=== PATIENT | female | born 1990 | race Two or more races ===

== ENCOUNTER 2016-07-29 09:16 | Emergency (ER) | payer OTHER ==
[2016-07-29] MEDS ORDERED: PROMETHAZINE HCL 25 MG TABLET PO ONE (10:53)
[2016-07-29] MEDS ORDERED: BUTALB/ACETAMINOPHEN/CAFFEINE 1 TAB EACH PO ONE (10:54)
--- NOTE | 2016-07-29 10:55 | ER Document Report ---
HPI - HPI Patient complains to provider of: sinus congestion Onset: Yesterday Onset/Duration: Gradual Quality of pain: Pressure Pain Level: 5 Context: Patient presents complaining of sinus congestion, headache, nausea and sore throat. Patient reports subjective fever at home. Patient does report some light sensitivity. Patient reports generalized body aches. Patient denies any vomiting. Associated Symptoms: Body/muscle aches, Nonproductive cough, Fever - Subjective , Headache, Rhinnorhea, Sinus pain/drainage, Sore throat. denies: Chest pain, Earache, Vomiting Exacerbated by: Denies Relieved by: Denies Similar symptoms previously: Yes Recently seen / treated by doctor: No - ROS ROS below otherwise negative: Yes Systems Reviewed and Negative: Yes All other systems reviewed and negative - CONSTITUTIONAL Constitutional: REPORTS: Fever - Subjective, Chills - EENT EENT: REPORTS: Sore Throat, Nasal Drainage-Clear, Congestion - NEURO Neurology: REPORTS: Headache - CARDIOVASCULAR Cardiovascular: DENIES: Chest pain - RESPIRATORY Respiratory: REPORTS: Coughing. DENIES: Trouble Breathing - GASTROINTESTINAL Gastrointestinal: REPORTS: Nausea - Yesterday. 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 Mother with gallbladder disease, diabetes, hypertension, asthma, obstructive sleep apnea, cardiac hypertrophy. Patient has suicidal ideation: No Patient has homicidal ideation: No Neurological Medical History: Reports: Hx Migraine. Denies: Hx Seizures Renal/ Medical History: Denies: Hx Peritoneal Dialysis Malignancy Medical History: Psychiatric Medical History: Reports: Hx Anxiety, Hx Depression, Hx Schizophrenia - no meds Traumatic Medical History: Past Surgical History: Reports: Hx Section - x3, Hx Cholecystectomy, Hx Oral Surgery - wisdom teeth, Hx Tubal Ligation. Denies: Hx Hysterectomy - Immunizations Hx Diphtheria, Pertussis, Tetanus Vaccination: Yes Hx Pneumococcal Vaccination: 05/16/10 <YOLANDA CLEMENTREECE - Last Filed: 07/29/16 12:51> Vertical Provider Document - CONSTITUTIONAL Agree With Documented VS: Yes Exam Limitations: No Limitations General Appearance: WD/WN, No Apparent Distress Notes: PHYSICAL EXAMINATION: GENERAL: Well-appearing and in no acute distress. HEAD: Atraumatic, normocephalic. EYES: sclera anicteric, conjunctiva are normal. Extraocular movements intact, PERRL ENT: Clear rhinorrhea, swollen nasal mucosa. Moist mucous membranes. NECK: Normal range of motion, supple without lymphadenopathy LUNGS: CTAB and equal. No wheezes rales or rhonchi. HEART: Regular rate and rhythm without murmurs ABDOMEN: Soft, nontender, normal bowel sounds, no guarding. EXTREMITIES: Normal range of motion, no pitting edema. No cyanosis. BACK: No CVA tenderness NEUROLOGICAL: Cranial nerves grossly intact. Normal speech. PSYCH: Normal mood, normal affect. SKIN: Warm, Dry, normal turgor, patient with scattered erythematous macular papular lesions scattered in linear patterns to extremities - INFECTION CONTROL TRAVEL OUTSIDE OF THE [place] IN LAST 30 DAYS: No - RESPIRATORY O2 Sat by Pulse Oximetry: 98 <ASHLEY CLEMENT - Last Filed: 07/29/16 12:51> Course - Re-evaluation Re-evalutation: 07/29/16 12:12 Patient continues with sinus congestion and sinus pressure pain. Patient states that nausea has improved although headache pain has not completely resolved. Discussed plan of care with patient, patient verbalized understanding and agrees with plan. Discussed worsening signs or symptoms that patient should return immediately for. 07/29/16 Patient advised that her skin lesions to look consistent with possible bedbug bites and that she should treat her skin rash with topical [id number] steroid cream and Benadryl. - Vital Signs Vital signs: Temp Pulse Resp BP Pulse Ox 99.0 F 92 14 117/81 98 07/29/16 09:20 07/29/16 09:20 07/29/16 09:20 07/29/16 09:20 07/29/16 09:20 - Laboratory Laboratory results interpreted by me: 07/29/16 12:12 Labs- Entire Visit 07/29/16 07/29/16 11:19 11:19 Influenza A (Rapid) NEGATIVE Influenza B (Rapid) NEGATIVE Group A Strep Rapid NEGATIVE 07/29/16 12:54 <ASHLEY CLEMENT - Last Filed: 07/29/16 12:51> - Vital Signs Vital signs: Temp Pulse Resp BP Pulse Ox 98.5 F 72 16 121/68 99 07/29/16 12:55 07/29/16 12:55 07/29/16 12:55 07/29/16 12:55 07/29/16 12:55 <JANIA COLON - Last Filed: 08/13/16 05:47> Discharge <ASHLEY CLEMENT - Last Filed: 07/29/16 12:51> <JANIA COLON - Last Filed: 08/13/16 05:47> - Discharge Clinical Impression: Sinus headache, Nasal congestion, Sore throat Condition: Stable Disposition: HOME, SELF-CARE Instructions: Headache ([facility]), Antinausea Medication ([facility]), Upper Respiratory Illness ([facility]), Sore Throat ([facility]) Additional Instructions: Return immediately for any new or worsening symptoms Followup with your primary care provider, call tomorrow to make a followup appointment You may use saline nasal spray [id number] to help with sinus congestion Prescriptions: Guaifenesin/Pseudoephedrne HCl [Mucinex D ER Tablet] 1 each PO BID PRN #12 tab.er.12h PRN Reason: Naproxen [Naprosyn 250 Nmg Tablet] 1 tab PO BID #14 tablet Promethazine HCl [Phenergan 25 mg Tablet] 25 mg PO Q6H PRN #12 tablet PRN Reason: Forms: Return to Work Referrals: [facility] [Provider Group] - Follow up tomorrow
[2016-07-29 12:57] VITALS: BP 121/68
== END 2016-07-29 12:57 | disposition home or self-care (01) ==
LOC: ER 09:16
DX: J02.9 Acute pharyngitis, unspecified (principal); R09.81 Nasal congestion; R51 Headache; R21 Rash and other nonspecific skin eruption; Z90.49 Acquired absence of other specified parts of digestive tract; Z98.51 Tubal ligation status
CPT/HCPCS: 99283; 87070; 87880; 87804; J3490

== ENCOUNTER 2017-01-02 16:08 | Emergency (ER) | payer OTHER ==
[2017-01-02] MEDS ORDERED: DIPH/PERTUSS(ACELL)/TETANUS VAC/PF 0.5 ML SYR (>=10YO) IM ONE (17:09)
[2017-01-02] MEDS ORDERED: AMOXICILLIN TR/POT CLAVULANATE 500-125 MG TAB PO ONE (17:09)
[2017-01-02] MEDS ORDERED: IBUPROFEN 800 MG TABLET PO ONE (17:09)
--- NOTE | 2017-01-02 17:38 | ER Document Report ---
ED Animal Bite - General Chief Complaint: Cat bite L hand Stated Complaint: POSSIBLE CAT BITE Time Seen by Provider: 01/02/17 16:56 Mode of Arrival: Ambulatory Information source: Patient TRAVEL OUTSIDE OF THE [place] IN LAST 30 DAYS: No - Related Data Allergies/Adverse Reactions: No Known Allergies Allergy (Verified 01/02/17 17:20) Past Medical History - General Information source: Patient - Social History Smoking Status: Former Smoker Cigarette use (# per day): No Chew tobacco use (# tins/day): No Smoking Education Provided: No Frequency of alcohol use: Occasional Drug Abuse: None Occupation: no Lives with: Family Family History: Arthritis, CVA, DM, Hypertension, Malignancy, Thyroid Disfunction, Other - Grandmother with PE, diabetes, hypertension. Mother with gallbladder disease, diabetes, hypertension, asthma, obstructive sleep apnea, cardiac hypertrophy. Patient has suicidal ideation: No Patient has homicidal ideation: No - Past Medical History Cardiac Medical History: Reports: None Pulmonary Medical History: Reports: None EENT Medical History: Reports: None Neurological Medical History: Reports: Hx Migraine Endocrine Medical History: Reports: None Renal/ Medical History: Reports: None Malignancy Medical History: Reports: None GI Medical History: Reports: None Musculoskeltal Medical History: Reports None Skin Medical History: Reports None Psychiatric Medical History: Reports: Hx Anxiety, Hx Bipolar Disorder, Hx Depression, Hx Obsessive Compulsive Disorder, Hx Post Traumatic Stress Disorder , Hx Schizophrenia - no meds Traumatic Medical History: Reports: None Infectious Medical History: Reports: None Past Surgical History: Reports: Hx Section - x3, Hx Cholecystectomy, Hx Oral Surgery - wisdom teeth, Hx Tubal Ligation. Denies: Hx Hysterectomy - Immunizations Immunizations up to date: Yes Hx Diphtheria, Pertussis, Tetanus Vaccination: Yes - 01/02/17 Hx Pneumococcal Vaccination: 05/16/10 Review of Systems - Review of Systems Constitutional: No symptoms reported EENT: No symptoms reported Cardiovascular: No symptoms reported Respiratory: No symptoms reported Gastrointestinal: No symptoms reported Genitourinary: No symptoms reported Female Genitourinary: No symptoms reported Musculoskeletal: No symptoms reported Skin: Other - cat bites left hand Hematologic/Lymphatic: No symptoms reported Neurological/Psychological: No symptoms reported Physical Exam - Vital signs Vitals: Temp Pulse Resp BP Pulse Ox 99.3 F 83 16 119/78 98 01/02/17 16:37 01/02/17 16:37 01/02/17 16:37 01/02/17 16:37 01/02/17 16:37 Interpretation: Normal - General General appearance: Appears well, Alert - HEENT Head: Normocephalic, Atraumatic Eyes: Normal Pupils: PERRL - Respiratory Respiratory status: No respiratory distress Chest status: Nontender Breath sounds: Normal Chest palpation: Normal - Cardiovascular Rhythm: Regular Heart sounds: Normal auscultation Murmur: No - Abdominal Inspection: Normal Distension: No distension Bowel sounds: Normal Tenderness: Nontender Organomegaly: No organomegaly - Back Back: Normal, Nontender - Extremities General upper extremity: Normal inspection, Nontender, Normal color, Normal ROM , Normal temperature General lower extremity: Normal inspection, Nontender, Normal color, Normal ROM , Normal temperature, Normal weight bearing. No: Guero's sign - Neurological Neuro grossly intact: Yes Cognition: Normal Orientation: AAOx4 [place] Coma Scale Eye Opening: Spontaneous [place] Coma Scale Verbal: Oriented [place] Coma Scale Motor: Obeys Commands [place] Coma Scale Total: 15 Speech: Normal Motor strength normal: LUE, RUE, LLE, RLE Sensory: Normal - Psychological Associated symptoms: Normal affect, Normal mood - Skin Skin Temperature: Warm Skin Moisture: Dry Skin Color: Normal Location of irregularity: Extremities - left hand puncture delvalle Character of irregularity: negative: Erythematous Irregularity with: Swelling, Tenderness. negative: Inflammation Course - Re-evaluation Re-evalutation: 01/02/17 17:49 Patient treated with augmentin, tdap, and ibuprofen. Patient given instruction for epsom salt soaks, augmentin, ibuprofen and follow up with orthopedics. - Vital Signs Vital signs: Temp Pulse Resp BP Pulse Ox 99.3 F 83 16 119/78 98 01/02/17 16:37 01/02/17 16:37 01/02/17 16:37 01/02/17 16:37 01/02/17 16:37 Discharge - Discharge Clinical Impression: Cat bite of left hand Qualifiers: Encounter type: initial encounter Qualified Code(s): S61.452A - Open bite of left hand, initial encounter; W55.01XA - Bitten by cat, initial encounter Condition: Stable Disposition: HOME, SELF-CARE Instructions: Family Physicians / Practices Additional Instructions: Animal Bites Animal bites are often heavily contaminated with bacteria. In spite of thorough cleansing and proper treatment, these wounds frequently become infected. Bite wounds of the hands are especially prone to complications. Bites are dressed, if possible. Large wounds may require suturing after internal cleansing. Because of infection risk, some large wounds must remain unstitched. Your doctor is trained to advise you on the best treatment for your bite. Call the doctor at once if the wound becomes red, swollen, warm, increasingly painful, or if it begins to drain. Danger signs also include red streaks up the involved extremity, swollen glands in the groin or under the arm , or fever and chills. The risk of rabies from domestic animals is very low. Bats, sick animals, and wild animals may expose you to rabies. The physician, or the health department, will inform you if you will need to receive the rabies vaccine. Epsom Salt Soaks Soak the wound area in a container of warm epsom salt water. If you can't get the wound area into a bucket or hansen, use a folded towel soaked in the epsom salt solution and apply to the area. Use clean hot tap water (about the temperature of a very warm bath), mixing in about one (1) teaspoon for every pint of water. Two gallon --> 16 teaspoons Epsom Salts One gallon --> 8 teaspoons Epsom Salts Two quarts --> 4 teaspoons Epsom Salts One quart --> 2 teaspoons Epsom Salts Soak the wound for about 20 minutes while gently moving it around in the water. Repeat this four (4) times a day. Augmentin Augmentin is a mixture of amoxicillin and clavulanate. Amoxicillin is a member of the penicillin family. It covers the germs likely to cause ear, bronchial, and urinary infections better than plain penicillin. The addition of clavulanate allows it to cover staph infections of the skin, as well as resistant cases of ear and sinus infections. Your physician has chosen Augmentin for you because of the special nature of your situation. Augmentin is best taken with meals. Nausea after taking the medication is rare, but can occur. Diarrhea can occur, particularly in small children. Vaginal yeast infections, and oral thrush in infants are also common. Contact your physician if these problems occur. Allergy to penicillins is common. If you have had an allergic reaction to any drug of the penicillin family, you should never take any other penicillin. Notify your doctor at once if you develop hives, shortness of breath, swelling, or faintness. Ibuprofen Ibuprofen is an excellent, safe drug for pain control. In addition, it has potent antiinflammatory effects which are beneficial, especially in the treatment of injuries, arthritis, or tendonitis. It's best to take ibuprofen with food. Persons with ulcer disease or allergy to aspirin should notify their physician of this before taking ibuprofen. Take the medication exactly as prescribed. Don't take additional doses unless instructed to do so by your doctor. If you develop wheezing, shortness of breath, hives, faintness, stomach pain, vomiting, or dark black stools, return for re-evaluation at once. Elevate the Injury Because of the nature of your injury, elevation will be helpful to reduce swelling. This also reduces infection risk in wounds. Keep the injury up above the level of your heart for at least the next 48 hours (or longer if the physician recommends it). FOLLOW-UP CARE: If you have been referred to a physician for follow-up care, call the physician s office for an appointment as you were instructed or within the next two days. If you experience worsening or a significant change in your symptoms, notify the physician immediately or return to the Emergency Department at any time for re-evaluation. Prescriptions: Ibuprofen 800 mg PO Q6HP PRN #20 tablet PRN Reason: Amox Tr/Potassium Clavulanate [Augmentin 875-125 Tablet] 1 tab PO BID 10 Days tablet Referrals: ELDON CORTEZ MD [ACTIVE STAFF] - Follow up as needed
[2017-01-02 17:46] VITALS: BP 120/63
== END 2017-01-02 17:46 | disposition home or self-care (01) ==
LOC: ER 16:08
DX: S61.452A Open bite of left hand, initial encounter (principal); W55.01XA Bitten by cat, initial encounter
CPT/HCPCS: 90471; 90715; 99283

== ENCOUNTER 2017-05-24 11:59 | Emergency (ER) | payer SELFPAY ==
--- NOTE | 2017-05-24 12:44 | ER Document Report ---
ED GI/ - General Chief Complaint: Abdominal Problem Stated Complaint: BACK PAIN, NAUSEA Time Seen by Provider: 05/24/17 12:16 Mode of Arrival: Ambulatory Information source: Patient, [facility] Records Notes: This 26-year-old female patient complains of urine that appears cloudy with strong odor for the past few days. Some discomfort in her lower abdomen. She had her tubes tied just over 3 years ago. Last menstrual period was March. She is normally quite regular. She thinks she can feel her fundus. She reports prior pregnancies with negative urine tests. She has had 3 C-sections in the past. TRAVEL OUTSIDE OF THE [place] IN LAST 30 DAYS: No - Related Data Allergies/Adverse Reactions: No Known Allergies Allergy (Verified 05/24/17 12:09) Past Medical History - General Information source: Patient, [facility] Records - Social History Smoking Status: Never Smoker Cigarette use (# per day): No Chew tobacco use (# tins/day): No Smoking Education Provided: No Frequency of alcohol use: None Drug Abuse: None Lives with: Family Family History: Arthritis, CVA, DM, Hypertension, Malignancy, Thyroid Disfunction, Other - Grandmother with PE, diabetes, hypertension. Mother with gallbladder disease, diabetes, hypertension, asthma, obstructive sleep apnea, cardiac hypertrophy. Patient has suicidal ideation: No Patient has homicidal ideation: No Neurological Medical History: Reports: Hx Migraine Renal/ Medical History: Malignancy Medical History: Psychiatric Medical History: Reports: Hx Anxiety, Hx Bipolar Disorder, Hx Depression, Hx Obsessive Compulsive Disorder, Hx Post Traumatic Stress Disorder , Hx Schizophrenia - no meds Traumatic Medical History: Past Surgical History: Reports: Hx Section - x3, Hx Cholecystectomy, Hx Oral Surgery - wisdom teeth, Hx Tubal Ligation - Immunizations Immunizations up to date: Yes Hx Diphtheria, Pertussis, Tetanus Vaccination: Yes - 01/02/17 Hx Pneumococcal Vaccination: 05/16/10 Review of Systems - Review of Systems Constitutional: No symptoms reported EENT: No symptoms reported Cardiovascular: No symptoms reported Gastrointestinal: No symptoms reported Genitourinary: See HPI. denies: Burning, Dysuria Female Genitourinary: See HPI, Last menstrual period - 04/02/2017 Musculoskeletal: No symptoms reported Skin: No symptoms reported Hematologic/Lymphatic: No symptoms reported Neurological/Psychological: No symptoms reported Physical Exam - Vital signs Vitals: Temp Pulse Resp BP Pulse Ox 98.8 F 98 16 120/82 98 05/24/17 12:06 05/24/17 12:06 05/24/17 12:06 05/24/17 12:06 05/24/17 12:06 - General General appearance: Appears well In distress: None - HEENT Head: Normocephalic, Atraumatic Eyes: Normal Pupils: PERRL - Respiratory Respiratory status: No respiratory distress - Cardiovascular Rhythm: Regular - Abdominal Inspection: Obese Tenderness: Tender - Suprapubic and lower abdomen. No: Guarding, Rebound - Back Back: Normal - Extremities General upper extremity: Normal inspection General lower extremity: Normal inspection - Neurological Neuro grossly intact: Yes - Psychological Associated symptoms: Normal affect, Normal mood - Skin Skin Temperature: Warm Skin Moisture: Dry Skin Color: Normal Course - Re-evaluation Re-evalutation: 05/24/17 13:17 Serum hCG is negative. Urinalysis suggests urinary tract infection and not drinking nearly enough fluids. - Vital Signs Vital signs: Temp Pulse Resp BP Pulse Ox 98.8 F 98 16 120/82 98 05/24/17 12:06 05/24/17 12:06 05/24/17 12:06 05/24/17 12:06 05/24/17 12:06 - Laboratory Laboratory results interpreted by me: 05/24/17 12:21 Ur Leukocyte Esterase TRACE H Urine Ascorbic Acid 40 H Discharge - Discharge Clinical Impression: Urinary tract infection Qualifiers: Urinary tract infection type: acute cystitis Hematuria presence: without hematuria Qualified Code(s): N30.00 - Acute cystitis without hematuria Condition: Stable Disposition: HOME, SELF-CARE Additional Instructions: Urinary Tract Infection: Your evaluation indicates that you have a urinary tract infection. This is due to germs growing in the bladder. This is a common problem. This infection usually responds quickly to antibiotics. Your antibiotic should be taken exactly as prescribed. Drink plenty of fluids -- three to four quarts a day. Occasionally, a bladder anesthetic will be prescribed to help stop the feeling of urgency until the antibiotic has a chance to clear the infection. This may cause your urine to be dark orange. Certain urine infections require a culture. If the doctor obtained a culture, the results will be back in two days. You should call to see if a change in treatment is needed. A repeat urinalysis after you finish treatment is often recommended. The physician will let you know if further testing is required. Call the doctor if you develop fever, chills, flank pain, inability to urinate, or blood in the urine. //////////////////////////////////////////////////////////////////////////////// //////////////////////////////////////////////////////////////////////////////// ///////////////// Your urinalysis suggests urinary tract infection. Your serum test was negative. Your urine was quite concentrated. Should drink lots of fluids, especially water throughout the day in the evening. If you get up at night to urinate you should drink a lot of water again. Take the antibiotics as prescribed. Continue drinking cranberry juice. Follow-up with a local medical provider if not improving. RETURN TO THE EMERGENCY ROOM IF ANY NEW OR WORSENING SYMPTOMS. Prescriptions: Cephalexin Monohydrate [Keflex 500 mg Capsule] 500 mg PO TID #15 capsule
[2017-05-24 13:09] LABS: APPEARANCE,URINE SLIGHTLY-CLOUDY; BILIRUBIN,URINE NEGATIVE (NEGATIVE); COLOR,URINE YELLOW; GLUCOSE, URINE NEGATIVE (NEGATIVE); KETONES,URINE NEGATIVE (NEGATIVE); LEUKOCYTE ESTERASE,URINE TRACE (NEGATIVE); NITRITE,URINE NEGATIVE (NEGATIVE); PROTEIN,URINE NEGATIVE (NEGATIVE); URINE SPECIFIC GRAVITY 1.032; UROBILINOGEN,URINE NEGATIVE mg/dL (<2.0)
[2017-05-24] MEDS ORDERED: CEPHALEXIN 500 MG CAPSULE PO ONE (13:25)
[2017-05-24 13:38] VITALS: BP 119/79
== END 2017-05-24 13:38 | disposition home or self-care (01) ==
LOC: ER 11:59
DX: N30.00 Acute cystitis without hematuria (principal); M54.9 Dorsalgia, unspecified; R11.0 Nausea; R10.30 Lower abdominal pain, unspecified
CPT/HCPCS: 36415; 81001; 84703; 87086; 87088; 87186; 99283

== ENCOUNTER 2017-05-28 12:02 | Emergency (ER) | payer SELFPAY ==
--- NOTE | 2017-05-28 12:27 | ER Document Report ---
ED Medical Screen (RME) - General Chief Complaint: Pelvic Pain Stated Complaint: NAUSEA PELVIC PAIN Time Seen by Provider: 05/28/17 12:25 Mode of Arrival: Ambulatory Information source: Patient TRAVEL OUTSIDE OF THE [place] IN LAST 30 DAYS: No - HPI Patient complains to provider of: pelvic "heaviness", nausea, lightheaded Onset: Yesterday - pt seen here earlier this week with similar symptoms. Is concerned that she may be . Also was told she had a uti. - Related Data Allergies/Adverse Reactions: No Known Allergies Allergy (Verified 05/24/17 12:09) Past Medical History Neurological Medical History: Reports: Hx Migraine. Denies: Hx Seizures Renal/ Medical History: Denies: Hx Peritoneal Dialysis Malignancy Medical History: Psychiatric Medical History: Reports: Hx Anxiety, Hx Bipolar Disorder, Hx Depression, Hx Obsessive Compulsive Disorder, Hx Post Traumatic Stress Disorder , Hx Schizophrenia - no meds Traumatic Medical History: Past Surgical History: Reports: Hx Section - x3, Hx Cholecystectomy, Hx Oral Surgery - wisdom teeth, Hx Tubal Ligation. Denies: Hx Hysterectomy - Immunizations Immunizations up to date: Yes Hx Diphtheria, Pertussis, Tetanus Vaccination: Yes - 01/02/17 Physical Exam - Vital signs Vitals: Temp Pulse Resp BP Pulse Ox 98.1 F 74 18 117/74 99 05/28/17 12:17 05/28/17 12:17 05/28/17 12:17 05/28/17 12:17 05/28/17 12:17 Course - Vital Signs Vital signs: Temp Pulse Resp BP Pulse Ox 98.1 F 74 18 117/74 99 05/28/17 12:17 05/28/17 12:17 05/28/17 12:17 05/28/17 12:17 05/28/17 12:17
[2017-05-28 13:29] LABS: ABSOLUTE EOSINOPHILS # (AUTO) 0.1 10^3/uL (0.0-0.6); ABSOLUTE LYMPHOCYTES (AUTO) 2.4 10^3/uL (0.5-4.7); ABSOLUTE MONOCYTES (AUTO) 0.6 10^3/uL (0.1-1.4); ABSOLUTE NEUT (AUTO) 3.7 10^3/uL (1.7-8.2); BASOPHILS % (AUTO) 0.4 % (0-2); HEMATOCRIT 38.3 % (36.0-47.0); HEMOGLOBIN 12.7 g/dL (12.0-15.5); LYMPHOCYTES % (AUTO) 35.7 % (13-45); MEAN CORPUSCULAR HEMOGLOBIN 26.9 pg (27.0-33.4); MEAN CORPUSCULAR HGB CONC 33.1 g/dL (32.0-36.0); MEAN CORPUSCULAR VOLUME 81 fl (80-97); MONOCYTES % (AUTO) 8.3 % (3-13); PLATELET COUNT 248 10^3/uL (150-450); RED BLOOD COUNT 4.71 10^6/uL (3.72-5.28); RED CELL DISTRIBUTION WIDTH 14.2 % (11.5-14.0); SEGMENTED NEUTROPHILS % (AUTO) 54.6 % (42-78); TOTAL CELLS COUNTED % (AUTO) 100 %; WHITE BLOOD COUNT 6.8 10^3/uL (4.0-10.5)
[2017-05-28 13:51] LABS: ALANINE AMINOTRANSFERASE 32 U/L (9-52); ALBUMIN 4.1 g/dL (3.5-5.0); ALKALINE PHOSPHATASE 62 U/L (38-126); ANION GAP 8 (5-19); ASPARTATE AMINO TRANSFERASE 20 U/L (14-36); BILIRUBIN,DIRECT 0.1 mg/dL (0.0-0.4); BILIRUBIN,TOTAL 0.1 mg/dL (0.2-1.3); BLOOD UREA NITROGEN 16 mg/dL (7-20); CALCIUM 9.5 mg/dL (8.4-10.2); CARBON DIOXIDE 31 mmol/L (22-30); CHLORIDE 103 mmol/L (98-107); GLUCOSE 89 mg/dL (75-110); POTASSIUM 4.3 mmol/L (3.6-5.0); TOTAL PROTEIN 7.5 g/dL (6.3-8.2)
--- NOTE | 2017-05-28 17:12 | RADIOLOGY REPORT (SQ) ---
EXAM DESCRIPTION: U/S NON OB PEL TV W/DOPPLER COMPLETED DATE/TIME: 05/28/2017 5:00 pm REASON FOR STUDY: pelvic pain COMPARISON: None. TECHNIQUE: Dynamic and static grayscale images acquired of the pelvis via transvaginal approach and recorded on PACS. Additional selected color Doppler and spectral images recorded. LIMITATIONS: None. FINDINGS: UTERUS: Contour normal. No mass. ENDOMETRIAL STRIPE: No focal or generalized thickening. No masses. CERVIX: No nabothian cysts. RIGHT OVARY: No abnormal masses. RIGHT OVARY DOPPLER: Normal arterial vascular flow without evidence for torsion. LEFT OVARY: No abnormal masses. LEFT OVARY DOPPLER: Normal arterial vascular flow without evidence for torsion. FREE FLUID: None noted. OTHER: No other significant finding. MEASUREMENTS: UTERUS: 4.0 x 4.2 x 10.3 cm. ENDOMETRIAL STRIPE: 10 mm. RIGHT OVARY: 1.5 x 1.7 x 2.3 cm. LEFT OVARY: 1.6 x 2.2 x 2.8 cm. IMPRESSION: NORMAL TRANSVAGINAL PELVIC ULTRASOUND. TECHNICAL DOCUMENTATION: JOB ID: [id number] [email or web address] All Rights Reserved
--- NOTE | 2017-05-28 17:18 | ER Document Report ---
ED General - General Chief Complaint: Pelvic Pain Stated Complaint: NAUSEA PELVIC PAIN Time Seen by Provider: 05/28/17 12:25 Mode of Arrival: Ambulatory Information source: Patient TRAVEL OUTSIDE OF THE [place] IN LAST 30 DAYS: No - HPI Patient complains to provider of: pelvic heaviness Onset: Other - few weeks Onset/Duration: Gradual, Constant Quality of pain: Fullness Severity: Moderate Associated symptoms: Other Exacerbated by: Denies Relieved by: Denies Similar symptoms previously: Yes - with Recently seen / treated by doctor: No - Related Data Allergies/Adverse Reactions: No Known Allergies Allergy (Verified 05/24/17 12:09) Home Medications: Current Home Medications No Home Medications 05/28/17 [History] Past Medical History - General Information source: Patient - Social History Smoking Status: Never Smoker Chew tobacco use (# tins/day): No Frequency of alcohol use: None Drug Abuse: None Lives with: Family Family History: Arthritis, CVA, DM, Hypertension, Malignancy, Thyroid Disfunction, Other - Grandmother with PE, diabetes, hypertension. Mother with gallbladder disease, diabetes, hypertension, asthma, obstructive sleep apnea, cardiac hypertrophy. PGM breast cancer. Mom with "possible ovarian cancer" Patient has suicidal ideation: No Patient has homicidal ideation: No - Past Medical History Cardiac Medical History: Reports: None Pulmonary Medical History: Reports: None EENT Medical History: Reports: None Neurological Medical History: Reports: Hx Migraine. Denies: Hx Seizures Endocrine Medical History: Reports: None Renal/ Medical History: Reports: None. Denies: Hx Peritoneal Dialysis Malignancy Medical History: Reports: None GI Medical History: Reports: None Musculoskeltal Medical History: Reports None Skin Medical History: Reports None Psychiatric Medical History: Reports: Hx Anxiety, Hx Bipolar Disorder, Hx Depression, Hx Obsessive Compulsive Disorder, Hx Post Traumatic Stress Disorder , Hx Schizophrenia - no meds Traumatic Medical History: Past Surgical History: Reports: Hx Section - x3, Hx Cholecystectomy, Hx Oral Surgery - wisdom teeth, Hx Tubal Ligation. Denies: Hx Hysterectomy - Immunizations Immunizations up to date: Yes Hx Diphtheria, Pertussis, Tetanus Vaccination: Yes - 01/02/17 Hx Pneumococcal Vaccination: 05/16/10 Review of Systems - Review of Systems Constitutional: No symptoms reported EENT: No symptoms reported Cardiovascular: No symptoms reported Respiratory: No symptoms reported Gastrointestinal: Other - increased appetite Female Genitourinary: Last menstrual period - apr 02. denies: , Heavy /abnormal periods, Irregular period, Vaginal discharge, Vaginal bleeding, Vaginal odor, Painful intercourse Musculoskeletal: No symptoms reported Skin: No symptoms reported Hematologic/Lymphatic: No symptoms reported Neurological/Psychological: No symptoms reported Physical Exam - Vital signs Vitals: Temp Pulse Resp BP Pulse Ox 98.1 F 74 18 117/74 99 05/28/17 12:17 05/28/17 12:17 05/28/17 12:17 05/28/17 12:17 05/28/17 12:17 - Notes Notes: PHYSICAL EXAMINATION: GENERAL: Well-appearing, well-nourished and in no acute distress. HEAD: Atraumatic, normocephalic. EYES: Pupils equal round and reactive to light, extraocular movements intact, conjunctiva are normal. ENT: Nares patent, oropharynx clear without exudates. Moist mucous membranes. NECK: Normal range of motion, supple without lymphadenopathy LUNGS: Breath sounds clear to auscultation bilaterally and equal. No wheezes rales or rhonchi. HEART: Regular rate and rhythm without murmurs ABDOMEN: Soft, nontender, nondistended abdomen. No guarding, no rebound. No masses appreciated. Female : deferred (did not want pelvic exam) Musculoskeletal: Normal range of motion, no pitting or edema. No cyanosis. NEUROLOGICAL: Cranial nerves grossly intact. Normal speech, normal gait. Normal sensory, motor exams PSYCH: Normal mood, normal affect. SKIN: Warm, Dry, normal turgor, no rashes or lesions noted. My Course - Vital Signs Vital signs: Temp Pulse Resp BP Pulse Ox 98.1 F 74 18 117/74 99 05/28/17 12:17 05/28/17 12:17 05/28/17 12:17 05/28/17 12:17 05/28/17 12:17 - Laboratory Result Diagrams: 05/28/17 12:59 05/28/17 12:59 Laboratory results interpreted by me: 05/28/17 05/28/17 12:59 12:59 MCH 26.9 L RDW 14.2 H Carbon Dioxide 31 H Total Bilirubin 0.1 L 05/28/17 17:22 Serum hCG negative 05/28/17 17:23 - Diagnostic Test Radiology reviewed: Reports reviewed Radiology results interpreted by me: 05/28/17 17:22 Ultrasound of pelvis showed no acute findings Discharge - Discharge Clinical Impression: Pelvic pain Disposition: HOME, SELF-CARE Instructions: [facility], Pelvic Pain ([facility]) Additional Instructions: Return to ED if worsening of symptoms or other concerns. His establish a OB doctor as you need a annual Pap smear as we discussed.
[2017-05-28 18:07] VITALS: BP 119/67
[2017-05-28 18:09] LABS: AMORPHOUS SEDIMENT,URINE 1+ /HPF; APPEARANCE,URINE TURBID; BILIRUBIN,URINE NEGATIVE (NEGATIVE); COLOR,URINE YELLOW; GLUCOSE, URINE NEGATIVE (NEGATIVE); KETONES,URINE NEGATIVE (NEGATIVE); LEUKOCYTE ESTERASE,URINE NEGATIVE (NEGATIVE); NITRITE,URINE NEGATIVE (NEGATIVE); PROTEIN,URINE NEGATIVE (NEGATIVE); URINE SPECIFIC GRAVITY 1.031; UROBILINOGEN,URINE NEGATIVE mg/dL (<2.0)
== END 2017-05-28 18:08 | disposition home or self-care (01) ==
LOC: ER 12:02
DX: R10.2 Pelvic and perineal pain (principal); Z98.51 Tubal ligation status; Z90.49 Acquired absence of other specified parts of digestive tract
CPT/HCPCS: 36415; 76830; 80053; 81001; 84703; 85025; 93976; 99284

== ENCOUNTER 2017-09-15 10:15 | Emergency (ER) | payer SELFPAY ==
[2017-09-15 10:35] VITALS: BP 126/67
--- NOTE | 2017-09-15 10:54 | ER Document Report ---
HPI - HPI Pain Level: 3 Notes: Patient is a 26-year-old female who presents to the ED complaining of left face pain near her ear and left upper jaw laterally 2 days. Patient states that the pain does not usually radiate, but will radiate down into her lower jaw at times as well. She has not had any new piercings or insect bite/cut to the left side of her head. Patient is not sure if she feels lymph nodes being swollen in that area. She is eating and drinking without difficulties. She is urinating normally and having normal bowel movements. She has taken some over- the-counter meds with minimal relief. Denies any drug allergies. No other concerns or complaints. Denies any headache, fever, neck pain, ear discharge, URI, sore throat, chest pain, palpitations, syncope, cough, shortness of breath , wheeze, dyspnea, abdominal pain, nausea/vomiting/diarrhea, urinary retention, dysuria, hematuria, or rash. - ROS Systems Reviewed and Negative: Yes All other systems reviewed and negative - REPRODUCTIVE Reproductive: DENIES: : Past Medical History - Social History Smoking Status: Unknown if Ever Smoked Family History: Arthritis, CVA, DM, Hypertension, Malignancy, Thyroid Disfunction, Other - Grandmother with PE, diabetes, hypertension. Mother with gallbladder disease, diabetes, hypertension, asthma, obstructive sleep apnea, cardiac hypertrophy. PGM breast cancer. Mom with "possible ovarian cancer" Neurological Medical History: Reports: Hx Migraine. Denies: Hx Seizures Renal/ Medical History: Denies: Hx Peritoneal Dialysis Malignancy Medical History: Psychiatric Medical History: Reports: Hx Anxiety, Hx Bipolar Disorder, Hx Depression, Hx Obsessive Compulsive Disorder, Hx Post Traumatic Stress Disorder , Hx Schizophrenia - no meds Traumatic Medical History: Past Surgical History: Reports: Hx Section - x3, Hx Cholecystectomy, Hx Oral Surgery - wisdom teeth, Hx Tubal Ligation. Denies: Hx Hysterectomy - Immunizations Immunizations up to date: Yes Hx Diphtheria, Pertussis, Tetanus Vaccination: Yes - 01/02/17 Hx Pneumococcal Vaccination: 05/16/10 Vertical Provider Document - CONSTITUTIONAL Agree With Documented VS: Yes Notes: PHYSICAL EXAMINATION: GENERAL: Well-appearing, well-nourished and in no acute distress. HEAD: Atraumatic, normocephalic. EYES: Pupils equal round and reactive to light, extraocular movements intact, sclera anicteric, conjunctiva are normal. ENT: EAC clear b/l. TM's intact b/l without erythema, fluid, or perforation. Nares patent and without discharge. oropharynx clear without exudates. No tonsilar hypertrophy or erythema. Moist mucous membranes. No sinus tenderness. Uvula midline. No palatine shift. No tongue protrusion. No respiratory compromise. Mouth: Poor dentition. + severe decay and mild gingivitis. No obvious abscess or discharge noted. No facial swelling. + tenderness to tooth #17. NECK: Normal range of motion, supple without lymphadenopathy. No rigidity/ meningismus. Kernig/brudzinski negative. LUNGS: Breath sounds clear to auscultation bilaterally and equal. No wheezes rales or rhonchi. HEART: Regular rate and rhythm without murmurs, rubs, gallops. NEUROLOGICAL: Cranial nerves grossly intact. Normal speech, normal gait. Normal sensory, motor exams PSYCH: Normal mood, normal affect. SKIN: Warm, Dry, normal turgor, no rashes or lesions noted. - INFECTION CONTROL TRAVEL OUTSIDE OF THE [place] IN LAST 30 DAYS: No Course - Re-evaluation Re-evalutation: 09/15/17 10:57 Patient is an afebrile, well-hydrated, 26-year-old female who presents to the ED with dental pain to #17. Vitals are acceptable. PE is otherwise unremarkable. There is no abscess that needs incision and drainage at this time. I will be sending her home with a prescription for penicillin. Low suspicion for any meningitis, sepsis, peritonsillar/pharyngeal abscess, respiratory compromise, Volodymyr's, temporal arteritis, or other emergent systemic condition at this time. Patient is aware this condition can change from initial presentation and she needs to monitor symptoms closely. Conservative measures otherwise for symptoms. Call to schedule an appointment with a dentist for further evaluation and management. Recheck with your PCM this week as well. Return to the ED with any worsening/concerning symptoms otherwise as reviewed in discharge. Patient is in agreement. - Vital Signs Vital signs: Temp Pulse Resp BP Pulse Ox 98.7 F 63 16 126/67 H 98 09/15/17 10:34 09/15/17 10:34 09/15/17 10:34 09/15/17 10:34 09/15/17 10:34 Discharge - Discharge Clinical Impression: Pain, dental Condition: Stable Disposition: HOME, SELF-CARE Instructions: Penicillin V K ([facility]) Additional Instructions: [place] and floss twice daily Maintain fluid intake Take antibiotics as directed Mouthwash, salt water gargles, peroxide rinse as needed Tylenol/ibuprofen as needed Recheck with PCM this week Call today/tomorrow and schedule an appointment with your dentist for further evaluation Return to the ED with any worsening symptoms and/or development of fever, headache, facial swelling, swelling of lips/tongue/throat, trouble swallowing, drooling, hoarseness, neck pain/stiffness, chest pain, palpitations, syncope, shortness of breath, trouble breathing, abdominal pain, n/v/d, numbness/tingling , or other worsening symptoms that are concerning to you. Prescriptions: Penicillin V Potassium [Penicillin Vk 250 mg Tablet] 500 mg PO BID #40 tablet Forms: Elevated Blood Pressure [facility]errals[facility] [Provider Group] - Follow up in 1 week
== END 2017-09-15 10:55 | disposition home or self-care (01) ==
LOC: ER 10:15
DX: K08.9 Disorder of teeth and supporting structures, unspecified (principal); R51 Headache; Z90.49 Acquired absence of other specified parts of digestive tract; Z98.51 Tubal ligation status
CPT/HCPCS: 99282

== ENCOUNTER 2018-01-03 11:25 | Emergency (ER) | payer SELFPAY ==
[2018-01-03] MEDS ORDERED: ONDANSETRON 4 MG TAB.RAPDIS PO ONE (12:14)
[2018-01-03] MEDS ORDERED: DICYCLOMINE HCL INJ 20 MG/2 ML AMPULE IM ONE (12:14)
[2018-01-03 12:35] LABS: ABSOLUTE BASOPHILS # (AUTO) 0.1 10^3/uL (0.0-0.2); ABSOLUTE EOSINOPHILS # (AUTO) 0.1 10^3/uL (0.0-0.6); ABSOLUTE LYMPHOCYTES (AUTO) 2.9 10^3/uL (0.5-4.7); ABSOLUTE MONOCYTES (AUTO) 0.4 10^3/uL (0.1-1.4); ABSOLUTE NEUT (AUTO) 6.5 10^3/uL (1.7-8.2); BASOPHILS % (AUTO) 0.5 % (0-2); EOSINOPHILS % (AUTO) 0.7 % (0-6); HEMATOCRIT 38.2 % (36.0-47.0); HEMOGLOBIN 12.6 g/dL (12.0-15.5); MEAN CORPUSCULAR HEMOGLOBIN 27.2 pg (27.0-33.4); MEAN CORPUSCULAR HGB CONC 32.9 g/dL (32.0-36.0); MEAN CORPUSCULAR VOLUME 83 fl (80-97); MONOCYTES % (AUTO) 4.4 % (3-13); PLATELET COUNT 279 10^3/uL (150-450); RED BLOOD COUNT 4.62 10^6/uL (3.72-5.28); RED CELL DISTRIBUTION WIDTH 14.3 % (11.5-14.0); SEGMENTED NEUTROPHILS % (AUTO) 65.4 % (42-78); TOTAL CELLS COUNTED % (AUTO) 100 %; WHITE BLOOD COUNT 9.9 10^3/uL (4.0-10.5)
[2018-01-03 12:46] LABS: APPEARANCE,URINE SLIGHTLY-CLOUDY; BILIRUBIN,URINE NEGATIVE (NEGATIVE); COLOR,URINE YELLOW; GLUCOSE, URINE NEGATIVE (NEGATIVE); KETONES,URINE NEGATIVE (NEGATIVE); LEUKOCYTE ESTERASE,URINE NEGATIVE (NEGATIVE); NITRITE,URINE NEGATIVE (NEGATIVE); PROTEIN,URINE NEGATIVE (NEGATIVE); URINE SPECIFIC GRAVITY 1.031; UROBILINOGEN,URINE NEGATIVE mg/dL (<2.0)
[2018-01-03 12:58] LABS: ALANINE AMINOTRANSFERASE 28 U/L (9-52); ALKALINE PHOSPHATASE 67 U/L (38-126); ANION GAP 15 (5-19); ASPARTATE AMINO TRANSFERASE 21 U/L (14-36); BILIRUBIN,DIRECT 0.2 mg/dL (0.0-0.4); BILIRUBIN,TOTAL 0.3 mg/dL (0.2-1.3); BLOOD UREA NITROGEN 14 mg/dL (7-20); CALCIUM 9.7 mg/dL (8.4-10.2); CARBON DIOXIDE 25 mmol/L (22-30); CHLORIDE 103 mmol/L (98-107); GLUCOSE 112 mg/dL (75-110); LIPASE 41.7 U/L (23-300); POTASSIUM 3.8 mmol/L (3.6-5.0); SODIUM 142.7 mmol/L (137-145); TOTAL PROTEIN 7.6 g/dL (6.3-8.2)
--- NOTE | 2018-01-03 13:56 | ER Document Report ---
ED General - General Chief Complaint: Abdominal Pain Stated Complaint: ABDOMINAL PAIN Time Seen by Provider: 01/03/18 12:10 TRAVEL OUTSIDE OF THE [place] IN LAST 30 DAYS: No - HPI Patient complains to provider of: Abdominal pain Notes: Patient admitted for evaluation of abdominal pain states crampy and associated with nausea vomiting and diarrhea. Patient is intermittent for the last 2 weeks. Denies any sick contacts denies anyFevers or chills. Patient resting currently upon my evaluation - Related Data Allergies/Adverse Reactions: No Known Allergies Allergy (Verified 05/24/17 12:09) Past Medical History - Social History Smoking Status: Current Some Day Smoker Chew tobacco use (# tins/day): No Frequency of alcohol use: Social Drug Abuse: None Family History: Arthritis, CVA, DM, Hypertension, Malignancy, Thyroid Disfunction, Other - Grandmother with PE, diabetes, hypertension. Mother with gallbladder disease, diabetes, hypertension, asthma, obstructive sleep apnea, cardiac hypertrophy. PGM breast cancer. Mom with "possible ovarian cancer" Patient has suicidal ideation: No Patient has homicidal ideation: No Neurological Medical History: Reports: Hx Migraine. Denies: Hx Seizures Renal/ Medical History: Denies: Hx Peritoneal Dialysis Malignancy Medical History: Psychiatric Medical History: Reports: Hx Anxiety, Hx Bipolar Disorder, Hx Depression, Hx Obsessive Compulsive Disorder, Hx Post Traumatic Stress Disorder , Hx Schizophrenia - no meds Traumatic Medical History: Past Surgical History: Reports: Hx Section - x3, Hx Cholecystectomy, Hx Oral Surgery - wisdom teeth, Hx Tubal Ligation. Denies: Hx Hysterectomy - Immunizations Immunizations up to date: Yes Hx Diphtheria, Pertussis, Tetanus Vaccination: Yes - 01/02/17 Hx Pneumococcal Vaccination: 05/16/10 Review of Systems - Review of Systems Constitutional: No symptoms reported EENT: No symptoms reported Cardiovascular: No symptoms reported Respiratory: No symptoms reported Gastrointestinal: Abdominal pain, Diarrhea, Nausea, Vomiting Genitourinary: No symptoms reported Female Genitourinary: No symptoms reported Musculoskeletal: No symptoms reported Skin: No symptoms reported Hematologic/Lymphatic: No symptoms reported Neurological/Psychological: No symptoms reported -: Yes All other systems reviewed and negative Physical Exam - Vital signs Vitals: Temp Pulse Resp BP Pulse Ox 99.0 F 76 20 124/78 99 01/03/18 11:29 01/03/18 11:29 01/03/18 11:29 01/03/18 11:29 01/03/18 11:29 Interpretation: Normal - General General appearance: Appears well, Alert - HEENT Head: Normocephalic, Atraumatic Eyes: Normal Pupils: PERRL - Respiratory Respiratory status: No respiratory distress Chest status: Nontender Breath sounds: Normal Chest palpation: Normal - Cardiovascular Rhythm: Regular Heart sounds: Normal auscultation Murmur: No - Abdominal Inspection: Normal Distension: No distension Bowel sounds: Normal Tenderness: Nontender Organomegaly: No organomegaly - Back Back: Normal, Nontender - Extremities General upper extremity: Normal inspection, Nontender, Normal color, Normal ROM , Normal temperature General lower extremity: Normal inspection, Nontender, Normal color, Normal ROM , Normal temperature, Normal weight bearing. No: Guero's sign - Neurological Neuro grossly intact: Yes Cognition: Normal Orientation: AAOx4 [place] Coma Scale Eye Opening: Spontaneous [place] Coma Scale Verbal: Oriented [place] Coma Scale Motor: Obeys Commands [place] Coma Scale Total: 15 Speech: Normal Motor strength normal: LUE, RUE, LLE, RLE Sensory: Normal - Psychological Associated symptoms: Normal affect, Normal mood - Skin Skin Temperature: Warm Skin Moisture: Dry Skin Color: Normal Course - Re-evaluation Re-evalutation: 01/03/18 20:58 The patient presents with nausea vomiting diarrhea without signs of peritonitis or other life-threatening or serious etiology. The patient appears stable for discharge and has been instructed to return immediately if the symptoms worsen in any way, or in 8-12hr if not improved for re-evaluation. The patient has been instructed to return if the symptoms worsen or change in any way. - Vital Signs Vital signs: Temp Pulse Resp BP Pulse Ox 98.0 F 72 20 117/81 96 01/03/18 14:03 01/03/18 14:03 01/03/18 14:03 01/03/18 14:03 01/03/18 14:03 - Laboratory Result Diagrams: 01/03/18 12:19 01/03/18 12:19 Laboratory results interpreted by me: 01/03/18 01/03/18 01/03/18 12:19 12:19 12:19 RDW 14.3 H Glucose 112 H Urine Blood SMALL H Discharge - Discharge Clinical Impression: Abdominal pain Qualifiers: Abdominal location: unspecified location Qualified Code(s): R10.9 - Unspecified abdominal pain Condition: Good Disposition: HOME, SELF-CARE Instructions: Abdominal Pain ([facility]), Antispasmodics ([facility]), Clear Liquid Diet ( [facility]), Gastroenteritis (adult) ([facility]) Additional Instructions: Your laboratory studies do not show any signs of significant infection or any acute pathology. I recommend she follow-up with her primary care physician in next 2-3 days. Would recommend clear liquid diet for the next 1224 hrs. and advance as tolerated. Prescriptions: Ondansetron [Zofran Odt 4 mg Tablet] 4 mg PO Q4HP PRN #30 tab.rapdis PRN Reason: Ibuprofen [Motrin 600 mg Tablet] 600 mg PO Q8HP PRN #21 tablet PRN Reason: Dicyclomine HCl [Bentyl 20 mg Tablet] 20 mg PO QID #30 tablet
[2018-01-03 14:05] VITALS: BP 117/81
== END 2018-01-03 14:05 | disposition home or self-care (01) ==
LOC: ER 11:25
DX: R10.9 Unspecified abdominal pain (principal); R11.2 Nausea with vomiting, unspecified; R19.7 Diarrhea, unspecified; F17.200 Nicotine dependence, unspecified, uncomplicated
CPT/HCPCS: 99284; 36415; 83690; 85025; 80053; 81001; J0500; S0119

== ENCOUNTER 2018-02-16 23:07 | Emergency (ER) | payer SELFPAY ==
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
--- NOTE | 2018-02-17 01:28 | RADIOLOGY REPORT (SQ) ---
PROCEDURE: CHEST X-RAY TWO VIEWS CLINICAL HISTORY: chest pain INDICATION: Same as above COMPARISON: None TECHNIQUE: The study was done on 02/17/2018 at 1:11 AM PA and and lateral chest radiographs were obtained. FINDINGS: There is presence of bilateral nipple rings There are no discrete airspace infiltrates, pneumothoraces or pleural effusions. The pulmonary vascularity is normal The cardiomediastinal silhouette is unremarkable for patient's age and sex. IMPRESSION: There is no acute pleural-parenchymal process seen in the imaged lung doss. Place of interpretation: [facility].
[2018-02-17] MEDS ORDERED: ALBUTEROL SULFATE HFA (90 MCG/PUFF) 200 PUFF/8.5 GM MDI IH ONE (01:50)
[2018-02-17] MEDS ORDERED: DEXAMETHASONE 4 MG TABLET PO ONE (01:50)
[2018-02-17] MEDS ORDERED: BENZONATATE 100 MG CAPSULE PO ONE (01:50)
--- NOTE | 2018-02-17 01:51 | ER Document Report ---
ED General - General Chief Complaint: Breathing Difficulty Stated Complaint: COUGH Time Seen by Provider: 02/17/18 00:08 Notes: Patient is a 27-year-old female with a past medical history of schizoaffective disorder, occasional tobacco user, who presents with 2 days of cough, congestion and shortness of breath. The patient states that her symptoms started gradually and have been getting progressively worse. Nothing improves or worsens her symptoms. She denies a recent history of similar symptoms. No known sick contacts. She has not seen her general doctor regarding today's concerns. She denies fever, vomiting, abdominal pain, headache, or altered mental status. TRAVEL OUTSIDE OF THE [place] IN LAST 30 DAYS: No - Related Data Allergies/Adverse Reactions: No Known Allergies Allergy (Verified 05/24/17 12:09) Past Medical History - General Information source: Patient - Social History Smoking Status: Current Some Day Smoker Frequency of alcohol use: None Drug Abuse: None Lives with: Family Family History: Arthritis, CVA, DM, Hypertension, Malignancy, Thyroid Disfunction, Other - Grandmother with PE, diabetes, hypertension. Mother with gallbladder disease, diabetes, hypertension, asthma, obstructive sleep apnea, cardiac hypertrophy. PGM breast cancer. Mom with "possible ovarian cancer" Neurological Medical History: Reports: Hx Migraine. Denies: Hx Seizures Renal/ Medical History: Denies: Hx Peritoneal Dialysis Malignancy Medical History: Psychiatric Medical History: Reports: Hx Anxiety, Hx Bipolar Disorder, Hx Depression, Hx Obsessive Compulsive Disorder, Hx Post Traumatic Stress Disorder , Hx Schizophrenia - no meds Traumatic Medical History: Past Surgical History: Reports: Hx Section - x3, Hx Cholecystectomy, Hx Oral Surgery - wisdom teeth, Hx Tubal Ligation. Denies: Hx Hysterectomy - Immunizations Immunizations up to date: Yes Hx Diphtheria, Pertussis, Tetanus Vaccination: Yes - 01/02/17 Hx Pneumococcal Vaccination: 05/16/10 Review of Systems - Review of Systems Notes: Constitutional: Negative for fever. HENT: Negative for sore throat. Eyes: Negative for visual changes. Cardiovascular: Negative for chest pain. Respiratory: Positive for cough Gastrointestinal: Negative for abdominal pain, vomiting or diarrhea. Genitourinary: Negative for dysuria. Musculoskeletal: Negative for back pain. Skin: Negative for rash. Neurological: Negative for headaches, weakness or numbness. 10 point ROS negative except as marked above and in HPI. Physical Exam - Vital signs Vitals: Temp Pulse Resp BP Pulse Ox 99.1 F 102 H 22 H 122/67 96 02/16/18 23:15 02/16/18 23:15 02/16/18 23:15 02/16/18 23:15 02/16/18 23:15 Interpretation: Normal - Tachycardia resolved at time of my assessment Notes: PHYSICAL EXAMINATION: GENERAL: Well-appearing, well-nourished and in no acute distress. HEAD: Atraumatic, normocephalic. EYES: Pupils equal round and reactive to light, extraocular movements intact, sclera anicteric, conjunctiva are normal. ENT: nares patent, oropharynx clear without exudates. Moist mucous membranes. NECK: Normal range of motion, supple without lymphadenopathy LUNGS: Breath sounds clear to auscultation bilaterally and equal. No wheezes rales or rhonchi. HEART: Regular rate and rhythm without murmurs ABDOMEN: Soft, nontender, normoactive bowel sounds. No guarding, no rebound. No masses appreciated. EXTREMITIES: Normal range of motion, no pitting or edema. No cyanosis. NEUROLOGICAL: No focal neurological deficits. Moves all extremities spontaneously and on command. PSYCH: Normal mood, normal affect. SKIN: Warm, Dry, normal turgor, no rashes or lesions noted. Course - Re-evaluation Re-evalutation: 02/17/18 01:49 Patient presents with a clinical history and exam most consistent with an acute viral bronchitis. Patient is overall well in appearance without tachypnea, hypoxemia, tachycardia, or difficulty with ambulation. Breath sounds are clear bilaterally. No fever. Patient does have additional signs of upper respiratory infection including nasal congestion, sore throat, and sinus pressure. Chest x-ray clear will treat with bronchodilators, single dose of dexamethasone, and Tessalon Perles. At this time will discharge with return precautions and follow-up recommendations. Verbal discharge instructions given a the bedside and opportunity for questions given. Medication warnings reviewed. Patient is in agreement with this plan and has verbalized understanding of return precautions and the need for primary care follow-up in the next 24-72 hours. - Vital Signs Vital signs: Temp Pulse Resp BP Pulse Ox 97.4 F 83 20 112/69 98 02/17/18 02:11 02/17/18 02:11 02/17/18 02:11 02/17/18 02:11 02/17/18 02:11 - Diagnostic Test Radiology reviewed: Image reviewed, Reports reviewed Radiology results interpreted by me: 02/17/18 01:49 Chest x-ray: No acute infiltrate or pneumothorax Discharge - Discharge Clinical Impression: Bronchitis, Persistent cough Condition: Good Disposition: HOME, SELF-CARE Additional Instructions: You were seen for symptoms most consistent with bronchitis. This can take up to 12 weeks to fully resolve. This is generally due to a viral infection. Please follow-up with your primary doctor in the next 2-3 days. Return if you develop worsening cough, vomiting, fever >100.4, pass out, begin coughing blood, or have any other symptoms that are concerning to you. Please use the medications prescribed today as directed. Prescriptions: Benzonatate [Tessalon Perles 100 mg Capsule] 100 mg PO Q8HP PRN #40 capsule PRN Reason:
[2018-02-17 02:13] VITALS: BP 112/69
--- NOTE | 2018-02-17 10:13 | EKG REPORT ---
SEVERITY:- NORMAL ECG - SINUS RHYTHM : Confirmed by: Lauren Oneal 17-Feb-2018 10:12:03
== END 2018-02-17 02:45 | disposition home or self-care (01) ==
LOC: ER 23:07
DX: J40 Bronchitis, not specified as acute or chronic (principal); R06.00 Dyspnea, unspecified; F17.200 Nicotine dependence, unspecified, uncomplicated; Z90.49 Acquired absence of other specified parts of digestive tract; Z98.51 Tubal ligation status
CPT/HCPCS: 93005; 99284; 71046; 93010; L4350; J3490

== ENCOUNTER 2018-09-18 12:16 | Emergency (ER) | payer OTHER ==
[2018-09-18] MEDS ORDERED: LIDOCAINE 5% (700 MG) TRANSDERMAL ADH..PATCH TP ONE (14:12)
[2018-09-18] MEDS ORDERED: METHOCARBAMOL 750 MG TABLET PO ONE (14:13)
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
[2018-09-18 14:36] VITALS: BP 124/76
== END 2018-09-18 14:36 | disposition home or self-care (01) ==
LOC: ER 12:16
DX: M54.6 Pain in thoracic spine (principal); M54.2 Cervicalgia; M25.572 Pain in left ankle and joints of left foot; V49.40XA Driver injured in collision with unspecified motor vehicles in traffic accident, initial encounter; R09.81 Nasal congestion; F12.10 Cannabis abuse, uncomplicated
CPT/HCPCS: 99283; J3490

== ENCOUNTER 2018-12-08 20:04 | Emergency (ER) | payer SELFPAY ==
[2018-12-08] MEDS ORDERED: ASPIRIN 81 MG TABLET, CHEWABLE PO ONE (20:27)
--- NOTE | 2018-12-08 20:29 | ER Document Report ---
Addendum entered and electronically signed by KISHA PHIPPS MD 12/09/18 11:05: Discharge - Discharge Clinical Impression: Cocaine use, Marijuana use, Suicidal ideation, PTSD (post-traumatic stress disorder) Condition: Good Disposition: HOME, SELF-CARE Additional Instructions: You have been evaluated both medical and behavioral health teams and been deemed appropriate for discharge. You are highly encouraged to abstain from illegal substances. You have been provided a local resource list of area providers including mobile crisis contact information. Please follow-up with outpatient mental health services in 3 to 5 days with your chosen provider. Post-Traumatic Stress Disorder You seem to have post-traumatic stress disorder (PTSD). PTSD can cause chronic anxiety, sleeping problems, social withdrawal, and drug abuse. It can occur following a traumatic personal experience such as an accident, rape, assault, or of a loved one, or after experiencing a war or natural disaster. Symptoms may be delayed for days or even years. Emotional numbing, the inability to express grief, is usually the earliest sign. There may be apathy or agitation, aggression, and inability to perform ordinary tasks. Often there are frightening nightmares and sudden, intruding memories of the trauma. Panic attacks and feelings of guilt are common. Alcohol and drug use make post- traumatic stress symptoms worse. Medication may be temporarily necessary to combat anxiety, panic attacks, and depression. Medicine should not be considered a "cure." You must deal with the trauma and prepare to go on. Group therapy is often helpful. This helps you "talk through" the problem with others who share your symptoms. We can provide you with an appropriate referral. COCAINE ABUSE: Cocaine causes many dangerous medical problems. Problems can occur even with "usual" amounts. Cocaine affects judgement, creating a sense of invulnerability. Cocaine users often make bad decisions that seem "great" at the time. Most cocaine users eventually will be hurt by bad job performance, damaged personal relations, crime, and unsafe sexual practices. Toxic effects of cocaine can include seizures, hallucinations, delusions, high blood pressure, heart damage, or sudden . There's always the risk of a "bad batch." But heart attacks, brain hemorrhages, or cardiac arrest can occur unpredictably even with "normal" use. Injection of cocaine is risky for abscesses, endocarditis (heart infection), pneumonia, and AIDS. Withdrawal from cocaine often causes anxiety and drug cravings. Some users become paranoid and psychotic. Many treatment programs are available, but you must make the decision to quit. Medication can be prescribed to control the symptoms of cocaine toxicity (beta blockers or benzodiazepines). Withdrawal symptoms may require tranquilizers. DEPRESSION: Your evaluation reveals that you have mental depression. While symptoms may be vague, they often include disturbance of sleep, fatigue, loss of appetite, and general loss of interest in life. While depression may be a side effect of drugs, or a reaction to a major change in your life, many cases have no known cause. If depression is acute, and related to a major loss in your life, you can expect it to clear completely with time. If you have been depressed a long time, are prone to repeated bouts of depression or low mood, or have been thinking of suicide, get help. Depression can be treated with anti-depressant medication and counselling. Long-term depression will often take a few weeks to clear, even with appropriate medication. Follow-up care is important. SUICIDAL IDEATION: Suicidal ideation is a common medical term for thoughts about suicide, which may be as detailed as a formulated plan, without the suicidal act itself. Although most people who undergo suicidal ideation do not commit suicide, some go on to make suicide attempts. The range of suicidal ideation varies greatly from fleeting to detailed planning, role playing, and unsuccessful attempts. While thoughts about suicide are common, most people do not carry out serious actions to commit suicide. Based upon your evaluation and discussion with you, we do not believe you are currently at risk to act upon your thoughts of suicide. You have agreed to return to the Emergency Department, at any time, if you feel inclined to act upon your suicidal thoughts. FOLLOW-UP CARE: If you have been referred to a physician for follow-up care, call the physicians office for an appointment as you were instructed or within the next two days. If you experience worsening or a significant change in your symptoms, notify the physician immediately or return to the Emergency Department at any time for re-evaluation. Referrals: [facility] [Outside] - Follow up in 3-5 days [facility] [Outside] - Follow up as needed Addendum entered and electronically signed by NERY PEREZ LCSWA 12/09/18 10:48: Discharge - Discharge Clinical Impression: Cocaine use, Marijuana use, Suicidal ideation, PTSD (post-traumatic stress disorder) Condition: Good Disposition: HOME, SELF-CARE Additional Instructions: You have been evaluated both medical and behavioral health teams and been deemed appropriate for discharge. You are highly encouraged to abstain from illegal substances. You have been provided a local resource list of area providers including mobile crisis contact information. Please follow-up with outpatient mental health services in 3 to 5 days with your chosen provider. Post-Traumatic Stress Disorder You seem to have post-traumatic stress disorder (PTSD). PTSD can cause chronic anxiety, sleeping problems, social withdrawal, and drug abuse. It can occur following a traumatic personal experience such as an accident, rape, assault, or of a loved one, or after experiencing a war or natural disaster. Symptoms may be delayed for days or even years. Emotional numbing, the inability to express grief, is usually the earliest sign. There may be apathy or agitation, aggression, and inability to perform ordinary tasks. Often there are frightening nightmares and sudden, intruding memories of the trauma. Panic attacks and feelings of guilt are common. Alcohol and drug use make post- traumatic stress symptoms worse. Medication may be temporarily necessary to combat anxiety, panic attacks, and depression. Medicine should not be considered a "cure." You must deal with the trauma and prepare to go on. Group therapy is often helpful. This helps you "talk through" the problem with others who share your symptoms. We can provide you with an appropriate referral. COCAINE ABUSE: Cocaine causes many dangerous medical problems. Problems can occur even with "usual" amounts. Cocaine affects judgement, creating a sense of invulnerability. Cocaine users often make bad decisions that seem "great" at the time. Most cocaine users eventually will be hurt by bad job performance, damaged personal relations, crime, and unsafe sexual practices. Toxic effects of cocaine can include seizures, hallucinations, delusions, high blood pressure, heart damage, or sudden . There's always the risk of a "bad batch." But heart attacks, brain hemorrhages, or cardiac arrest can occur unpredictably even with "normal" use. Injection of cocaine is risky for abscesses, endocarditis (heart infection), pneumonia, and AIDS. Withdrawal from cocaine often causes anxiety and drug cravings. Some users become paranoid and psychotic. Many treatment programs are available, but you must make the decision to quit. Medication can be prescribed to control the symptoms of cocaine toxicity (beta blockers or benzodiazepines). Withdrawal symptoms may require tranquilizers. DEPRESSION: Your evaluation reveals that you have mental depression. While symptoms may be vague, they often include disturbance of sleep, fatigue, loss of appetite, and general loss of interest in life. While depression may be a side effect of drugs, or a reaction to a major change in your life, many cases have no known ca use. If depression is acute, and related to a major loss in your life, you can expect it to clear completely with time. If you have been depressed a long time, are prone to repeated bouts of depression or low mood, or have been thinking of suicide, get help. Depression can be treated with anti-depressant medication and counselling. Long-term depression will often take a few weeks to clear, even with appropriate medication. Follow-up care is important. SUICIDAL IDEATION: Suicidal ideation is a common medical term for thoughts about suicide, which may be as detailed as a formulated plan, without the suicidal act itself. Although most people who undergo suicidal ideation do not commit suicide, some go on to make suicide attempts. The range of suicidal ideation varies greatly from fleeting to detailed planning, role playing, and unsuccessful attempts. While thoughts about suicide are common, most people do not carry out serious actions to commit suicide. Based upon your evaluation and discussion with you, we do not believe you are currently at risk to act upon your thoughts of suicide. You have agreed to return to the Emergency Department, at any time, if you feel inclined to act upon your suicidal thoughts. FOLLOW-UP CARE: If you have been referred to a physician for follow-up care, call the physicians office for an appointment as you were instructed or within the next two days. If you experience worsening or a significant change in your symptoms, notify the physician immediately or return to the Emergency Department at any time for re-evaluation. Referrals: [facility] [Outside] - Follow up as needed [facility] [Outside] - Follow up in 3-5 days Original Note: ED General - General Stated Complaint: DIFFICULTY BREATHING Time Seen by Provider: 12/08/18 20:14 Mode of Arrival: Stretcher Information source: Patient, Law Enforcement, Emergency Med Personnel, [facility] Records Notes: 27-year-old female with anxiety, PTSD, schizophrenia (not on medications) presents via EMS in police custody with complaint of chest pain and suicidal ideation. Patient states to me that her chest pain started today around 5 PM after being arrested for a warrant that she was not aware of. She reports to nursing that her chest pain started yesterday. She states that it radiates from left to right and is described as a pressure-like pain. This is similar to previous episodes of anxiety. Patient also reports that she is having thoughts of hurting herself and attempted to cut her wrist with an [employer] knife yesterd ay. TRAVEL OUTSIDE OF THE [place] IN LAST 30 DAYS: No - HPI Onset: This afternoon Onset/Duration: Persistent Quality of pain: Pressure Severity: Moderate Associated symptoms: Chest pain. denies: Nonproductive cough, Productive cough, Fever, Headache, Nausea, Vomiting, Shortness of breath Exacerbated by: Denies Relieved by: Denies Similar symptoms previously: Yes Recently seen / treated by doctor: No - Related Data Allergies/Adverse Reactions: No Known Allergies Allergy (Verified 12/04/18 14:27) Past Medical History - General Information source: Patient, Law Enforcement, [facility] Records - Social History Smoking Status: Current Some Day Smoker Cigarette use (# per day): Yes - 1-3 Smoking Education Provided: Yes - Smoking cessation counseling was provided for 4 minutes at the bedside Frequency of alcohol use: Occasional Drug Abuse: Marijuana Lives with: Spouse/Significant other Family History: Arthritis, CVA, DM, Hypertension, Malignancy, Thyroid Disfunction, Other - Grandmother with PE, diabetes, hypertension. Mother with gallbladder disease, diabetes, hypertension, asthma, obstructive sleep apnea, cardiac hypertrophy. PGM breast cancer. Mom with "possible ovarian cancer" Neurological Medical History: Reports: Hx Migraine. Denies: Hx Seizures Renal/ Medical History: Denies: Hx Peritoneal Dialysis Malignancy Medical History: Psychiatric Medical History: Reports: Hx Anxiety, Hx Bipolar Disorder, Hx Depression, Hx Obsessive Compulsive Disorder, Hx Post Traumatic Stress Disorder, Hx Schizophrenia - no meds Traumatic Medical History: Past Surgical History: Reports: Hx Section - x3, Hx Cholecystectomy, Hx Oral Surgery - wisdom teeth, Hx Tubal Ligation. Denies: Hx Hysterectomy - Immunizations Immunizations up to date: Yes Hx Diphtheria, Pertussis, Tetanus Vaccination: Yes - 01/02/17 Hx Pneumococcal Vaccination: 05/16/10 Review of Systems - Review of Systems Notes: REVIEW OF SYSTEMS: CONSTITUTIONAL : Denies fever, chills, or sweats. Denies recent illness. Denies weight loss, recent hospitalizations. EENT: Denies visual changes, eye pain. Denies sore throat, oral lesions, difficulty swallowing. CARDIOVASCULAR: + chest pain. Denies palpitations. Denies lower extremity edema. RESPIRATORY: Denies cough. Denies shortness of breath, wheezing. GASTROINTESTINAL: Denies abdominal pain or distention. Denies nausea, vomiting, or diarrhea. Denies blood in vomitus, stools, or per rectum. Denies black, tarry stools. Denies constipation. GENITOURINARY: Denies difficulty urinating, painful urination, frequency, blood in urine, or vaginal discharge. MUSCULOSKELETAL: Denies back or neck pain or stiffness. Denies joint pain or s welling. SKIN: Denies rash, lesions or sores. HEMATOLOGIC : Denies easy bruising or bleeding. LYMPHATIC: Denies swollen glands. NEUROLOGICAL: Denies confusion or altered mental status. Denies loss of consciousness. Denies dizziness or lightheadedness. Denies headache. Denies weakness or paralysis. Denies problems difficulty with ambulation, slurred speech. Denies sensory loss, numbness, or tingling. Denies seizures. PSYCHIATRIC: + anxiety or stress. + depression, + suicidal ideation, denies homicidal ideation. Denies visual or auditory hallucinations. Physical Exam - Notes Notes: PHYSICAL EXAMINATION: GENERAL: Well-appearing, well-nourished and in no acute distress. HEAD: Atraumatic, normocephalic. EYES: Pupils equal round and reactive to light, extraocular movements intact, conjunctiva are normal. ENT: Nares patent, oropharynx clear without exudates. Moist mucous membranes. NECK: Normal range of motion, supple without lymphadenopathy LUNGS: Breath sounds clear to auscultation bilaterally and equal. No wheezes rales or rhonchi. HEART: Regular rate and rhythm without murmurs ABDOMEN: Soft, nontender, nondistended abdomen. No guarding, no rebound. No masses appreciated. Female : deferred Musculoskeletal: Normal range of motion, no pitting or edema. No cyanosis. NEUROLOGICAL: Cranial nerves grossly intact. Normal speech, normal gait. Normal sensory, motor exams PSYCH: Admits to suicidal ideation, increased stress, depression. SKIN: Superficial laceration to the left wrist. Course - Re-evaluation Re-evalutation: Laboratory 12/08/18 12/08/18 12/08/18 20:18 20:18 20:18 WBC 8.7 RBC 4.61 Hgb 12.6 Hct 38.3 MCV 83 MCH 27.2 MCHC 32.8 RDW 14.0 Plt Count 269 Seg Neutrophils % 68.4 Lymphocytes % 23.3 Monocytes % 6.4 Eosinophils % 1.4 Basophils % 0.5 Absolute Neutrophils 6.0 Absolute Lymphocytes 2.0 Absolute Monocytes 0.6 Absolute Eosinophils 0.1 Absolute Basophils 0.0 Sodium 138.9 Potassium 3.6 Chloride 100 Carbon Dioxide 29 Anion Gap 10 BUN 8 Creatinine 0.47 L Est GFR ( Amer) > 60 Est GFR (Non-Af Amer) > 60 Glucose 95 Calcium 9.5 Total Bilirubin 0.2 Direct Bilirubin 0.2 Neonat Total Bilirubin Not Reportable Neonat Direct Bilirubin Not Reportable Neonat Indirect Bili Not Reportable AST 42 H ALT 39 Alkaline Phosphatase 76 Troponin I Total Protein 7.6 Albumin 4.2 Serum HCG, Qual NEGATIVE Urine Color Urine Appearance Urine pH Ur Specific [place] Urine Protein Urine Glucose (UA) Urine Ketones Urine Blood Urine Nitrite Urine Bilirubin Urine Urobilinogen Ur Leukocyte Esterase Urine WBC (Auto) Urine RBC (Auto) U Hyaline Cast (Auto) Squamous Epi Cells Auto Urine Mucus (Auto) Urine Ascorbic Acid Salicylates < 1.0 L Urine Opiates Screen Urine Methadone Screen Acetaminophen < 10 L Ur Barbiturates Screen Ur Phencyclidine Scrn Ur Amphetamines Screen U Benzodiazepines Scrn Urine Cocaine Screen U Marijuana (THC) Screen Serum Alcohol < 10 12/08/18 12/08/18 12/08/18 20:18 22:23 22:23 WBC RBC Hgb Hct MCV MCH MCHC RDW Plt Count Seg Neutrophils % Lymphocytes % Monocytes % Eosinophils % Basophils % Absolute Neutrophils Absolute Lymphocytes Absolute Monocytes Absolute Eosinophils Absolute Basophils Sodium Potassium Chloride Carbon Dioxide Anion Gap BUN Creatinine Est GFR ( Amer) Est GFR (Non-Af Amer) Glucose Calcium Total Bilirubin Direct Bilirubin Neonat Total Bilirubin Neonat Direct Bilirubin Neonat Indirect Bili AST ALT Alkaline Phosphatase Troponin I < 0.012 Total Protein Albumin Serum HCG, Qual Urine Color YELLOW Urine Appearance SLIGHTLY-CLOUDY Urine pH 6.0 Ur Specific [place] 1.018 Urine Protein NEGATIVE Urine Glucose (UA) NEGATIVE Urine Ketones NEGATIVE Urine Blood NEGATIVE Urine Nitrite NEGATIVE Urine Bilirubin NEGATIVE Urine Urobilinogen NEGATIVE Ur Leukocyte Esterase NEGATIVE Urine WBC (Auto) 1 Urine RBC (Auto) 2 U Hyaline Cast (Auto) 1 Squamous Epi Cells Auto 5 Urine Mucus (Auto) MANY Urine Ascorbic Acid NEGATIVE Salicylates Urine Opiates Screen NEGATIVE Urine Methadone Screen NEGATIVE Acetaminophen Ur Barbiturates Screen NEGATIVE Ur Phencyclidine Scrn NEGATIVE Ur Amphetamines Screen NEGATIVE U Benzodiazepines Scrn NEGATIVE Urine Cocaine Screen UNCONFIRMED POSITIVE U Marijuana (THC) Screen UNCONFIRMED POSITIVE Serum Alcohol Chest X-Ray 12/08/18 20:23 IMPRESSION: No evidence of acute cardiopulmonary disease. 12/08/18 20:28 27-year-old female presents in police custody with complaint of chest pain, suicidal ideation. Patient states chest pain started after her arrest earlier this afternoon. She states her anxiety and PTSD make it difficult for her to stay in a [facility] cell. 12/08/18 23:58 CBC, CMP, urinalysis are within normal limits. Cardiac enzymes within normal limits. EKG showed normal sinus rhythm. Urine drug screen positive for cocaine, marijuana. Patient requesting nighttime Abilify which was administered. Patient denies using cocaine today or yesterday. She has been resting comfortably throughout her ED course. Patient has had no further comp laints of chest pain. Patient cleared medically for behavioral health disposition. 12/09/18 00:01 - Laboratory Result Diagrams: 12/08/18 20:18 12/08/18 20:18 Laboratory results interpreted by me: 12/08/18 20:18 Creatinine 0.47 L AST 42 H Salicylates < 1.0 L Acetaminophen < 10 L - Diagnostic Test Radiology reviewed: Image reviewed, Reports reviewed - EKG Interpretation by Me EKG shows normal: Sinus rhythm Rate: Normal Rhythm: NSR When compared to previous EKG there are: No significant change Discharge - Discharge Clinical Impression: Cocaine use, Marijuana use, Suicidal ideation Condition: Good Disposition: OTHER
[2018-12-08 20:47] LABS: ABSOLUTE EOSINOPHILS # (AUTO) 0.1 10^3/uL (0.0-0.6); ABSOLUTE MONOCYTES (AUTO) 0.6 10^3/uL (0.1-1.4); BASOPHILS % (AUTO) 0.5 % (0-2); EOSINOPHILS % (AUTO) 1.4 % (0-6); HEMATOCRIT 38.3 % (36.0-47.0); HEMOGLOBIN 12.6 g/dL (12.0-15.5); LYMPHOCYTES % (AUTO) 23.3 % (13-45); MEAN CORPUSCULAR HEMOGLOBIN 27.2 pg (27.0-33.4); MEAN CORPUSCULAR HGB CONC 32.8 g/dL (32.0-36.0); MEAN CORPUSCULAR VOLUME 83 fl (80-97); MONOCYTES % (AUTO) 6.4 % (3-13); PLATELET COUNT 269 10^3/uL (150-450); RED BLOOD COUNT 4.61 10^6/uL (3.72-5.28); SEGMENTED NEUTROPHILS % (AUTO) 68.4 % (42-78); TOTAL CELLS COUNTED % (AUTO) 100 %; WHITE BLOOD COUNT 8.7 10^3/uL (4.0-10.5)
[2018-12-08 21:08] LABS: ALANINE AMINOTRANSFERASE 39 U/L (9-52); ALBUMIN 4.2 g/dL (3.5-5.0); ALKALINE PHOSPHATASE 76 U/L (38-126); ANION GAP 10 (5-19); ASPARTATE AMINO TRANSFERASE 42 U/L (14-36); BILIRUBIN,DIRECT 0.2 mg/dL (0.0-0.4); BILIRUBIN,TOTAL 0.2 mg/dL (0.2-1.3); BLOOD UREA NITROGEN 8 mg/dL (7-20); CALCIUM 9.5 mg/dL (8.4-10.2); CARBON DIOXIDE 29 mmol/L (22-30); CHLORIDE 100 mmol/L (98-107); GLUCOSE 95 mg/dL (75-110); POTASSIUM 3.6 mmol/L (3.6-5.0); TOTAL PROTEIN 7.6 g/dL (6.3-8.2)
[2018-12-08 21:11] LABS: ACETAMINOPHEN < 10 ug/mL (10-30); ALCOHOL < 10 mg/dL (NONE DETECTED); SALICYLATE < 1.0 mg/dL (2.0-20.0)
--- NOTE | 2018-12-08 21:54 | RADIOLOGY REPORT (SQ) ---
XR CHEST 2 VIEWS EXAM DATE: 12/08/2018 8:23 PM CDT HISTORY: Chest pain. COMPARISON: 02/16/2018 FINDINGS: The heart size is within normal limits. No consolidation, pleural effusion, or pneumothorax is seen. The bony thorax is intact. IMPRESSION: No evidence of acute cardiopulmonary disease.
--- NOTE | 2018-12-08 23:10 | EKG REPORT ---
SEVERITY:- NORMAL ECG - SINUS RHYTHM : Confirmed by: Lauren Oneal 08-Dec-2018 23:10:07
[2018-12-08 23:21] LABS: APPEARANCE,URINE SLIGHTLY-CLOUDY; BILIRUBIN,URINE NEGATIVE (NEGATIVE); COLOR,URINE YELLOW; GLUCOSE, URINE NEGATIVE (NEGATIVE); KETONES,URINE NEGATIVE (NEGATIVE); LEUKOCYTE ESTERASE,URINE NEGATIVE (NEGATIVE); NITRITE,URINE NEGATIVE (NEGATIVE); PROTEIN,URINE NEGATIVE (NEGATIVE); URINE SPECIFIC GRAVITY 1.018; UROBILINOGEN,URINE NEGATIVE mg/dL (<2.0)
[2018-12-08 23:33] LABS: URINE AMPHETAMINES SCREEN NEGATIVE; URINE BARBITURATES SCREEN NEGATIVE; URINE BENZODIAZEPINES SCREEN NEGATIVE; URINE COCAINE SCREEN UNCONFIRMED POSITIVE; URINE MARIJUANA (THC) SCREEN UNCONFIRMED POSITIVE; URINE METHADONE SCREEN NEGATIVE; URINE PHENCYCLIDINE SCREEN NEGATIVE
[2018-12-08] MEDS ORDERED: ARIPIPRAZOLE 5 MG TABLET PO ONE (23:34)
--- NOTE | 2018-12-09 09:37 | ER Document Report ---
Doctor's Note Notes: 12/09/18 09:37 27-year-old female presents in police custody secondary to an arrest warrant with a history of schizophrenia, noncompliant with meds, with positive cocaine. Patient also had some chest pain when she was arrested. EKG and troponin normal. Pending psychiatric evaluation. Vital signs stable. 12/09/18 10:30 Labs and vitals as recorded. Patient denies any active suicidal or homicidal ideations at this time. She states she has chronic passive suicidal ideations. Patient also has a history of self cutting. Patient states this all started when she was pulled over and her melissa's car. She states that she had a warrant for her rest and when they placed handcuffs on how this made her anxiety go "through the roof". Patient and melissa state that the patient does not have a history of schizophrenia, but severe PTSD. She states the handcuffs on her wrists increase this PTSD. The psychiatry/psychology team is seen and assessed the patient and they do not believe that the patient is an imminent threat to herself or others at this time. They would like the patient to be discharged at this time. They will provide outpatient follow-up services. Melissa is in the room and is very comfortable with the patient going home. The patient herself is very comfortable going home. We will follow the expert recommendations and discharge the patient home at this time with outpatient follow-up expedited. The psychology/psychiatry team does not want to start medications at this time.
--- NOTE | 2018-12-09 10:45 | PSYCHOLOGICAL NOTE ---
Psych Note - Psych Note Date seen by psych provider: 12/09/18 Time seen by psych provider: 09:50 Psych Note: Reason for Consult: Suicidal ideation Consent permissions: Patient's fianc at bedside per patient's request 27-year-old female with PTSD (not on medications) presents via EMS in police custody with complaint of chest pain and suicidal ideation. Patient disclosed that she suffers from chronic passive suicidal ideation i.e. no plans means or intent that comes and goes. She denies current thoughts of harming herself or wanting to . She reports that last night she was experiencing passive suicidal ideation because her anxiety levels were so high. She denies having intent or plan last night. She disclosed that she was pulled over for tags and was subsequently arrested. She reports that her anxiety became significant and when she was in handcuffs it triggered her PTSD. Patient discussed typical self soothing and destressing such as engaging her 5 senses or tapping, if she is unable to engage her senses, to remove herself from panic attacks. She confirms she was unable to engage in any of those coping skills last night which triggered her passive suicidal ideation. Patient discloses that she is currently not on medication or in therapy but would like assistance in obtaining services. She confirms that she did engage in self-harm of cutting yesterday when her emotions became overwhelmed; this is an connection to her mother's illness and financial stressors. Clinician notes patient has superficial cut going up her inner wrist on her left arm. Patient confirms she has a history of cutting to "release" her emotions. She reports she also uses piercings and tattoos as a form of releasing her emotions. Patient disclosed she feels confident that she can identify when she is unable to control her emotions and her passive suicidal ideation becomes more intense. She reports that she voluntarily admitted herself last April when she experienced higher level of suicidal ideation and cut her wrist (same location). Patient's fianc disclosed he has no concerns with the patient returning home with him today. He confirms he would be part of the patient's plan of care i.e. ensure the patient does not have access to medications and weapons and follow through with mental health recommendations. He reports he feels that last night events spiraled out of control and states that he feels she is "very safe to return home with him." Patient is alert and orientated to person, place, time and circumstance. Mood is euthymic with congruent affect as evidenced by smiling engaging with clinician. Patient denies current suicidal ideation discloses chronic passive suicidal ideation i.e. no plans means or intent. Patient did engage in self-harm behavior of cutting and reports history of cutting. Patient denies homicidal ideation. Delusions are absent behaviors congruent with intact reality based presentation i.e. organized linear thought process. Eye contact is well-maintained. Conversational speech is within normal rate, tone and prosody. Intellectual abilities appear to be within the average range. Attention and concentration are good. Insight, judgment, impulse control are fair. PTSD per history provided by patient No medication recommendations at this time Impression\\plan: Patient is cleared from acute psychiatric services. Patient discloses presenting after PTSD triggers occurred when she was arrested. She reports chronic passive suicidal ideation i.e. no plans means or intent; denies current. Patient has a history of engaging in maladaptive coping skill of cutting and did engage in cutting 2 nights previous and overwhelmed with emotions in regards to her mother's health and finances. Patient has demonstrated strong insight into her symptoms and coping skills. She continued to demonstrate the ability to identify when higher level of care as needed by utilizing voluntary inpatient services last April. Patient's fianc reports he has no concerns with the patient returning home and confirms he will be part of patient's plan of care. Patient reports feeling very comfortable with current plan of care. Resources have been provided including mobile crisis contact information. Patient is recommended to follow-up with outpatient mental health services for therapeutic services and evaluation for possible medication management. Dr. Evans was consulted to care management of this patient; attending physicians in agreement with augmentations and disposition.
[2018-12-09 12:53] VITALS: BP 132/91
== END 2018-12-09 11:30 | disposition home or self-care (01) ==
LOC: ER 20:04
DX: F43.10 Post-traumatic stress disorder, unspecified (principal); F14.90 Cocaine use, unspecified, uncomplicated; F12.90 Cannabis use, unspecified, uncomplicated; R07.9 Chest pain, unspecified; F17.210 Nicotine dependence, cigarettes, uncomplicated
CPT/HCPCS: 36415; 71046; 80053; 80307; 81001; 84484; 84703; 85025; 93005; 93010; 99285

== ENCOUNTER 2018-12-29 06:00 | Observation (INO) | payer SELFPAY ==
[2018-12-29] MEDS ORDERED: NALOXONE HCL INJ/PF 0.4 MG/1 ML SDV IV ONE (06:08)
[2018-12-29] MEDS ORDERED: NORMAL SALINE 1000 ML 1,000 ML IV ONE (06:08)
[2018-12-29 06:45] LABS: ABSOLUTE MONOCYTES (AUTO) 0.5 10^3/uL (0.1-1.4); ABSOLUTE NEUT (AUTO) 9.2 10^3/uL (1.7-8.2); BASOPHILS % (AUTO) 0.4 % (0-2); EOSINOPHILS % (AUTO) 0.1 % (0-6); HEMATOCRIT 36.8 % (36.0-47.0); HEMOGLOBIN 12.1 g/dL (12.0-15.5); LYMPHOCYTES % (AUTO) 9.3 % (13-45); MEAN CORPUSCULAR HEMOGLOBIN 27.4 pg (27.0-33.4); MEAN CORPUSCULAR HGB CONC 32.8 g/dL (32.0-36.0); MEAN CORPUSCULAR VOLUME 83 fl (80-97); MONOCYTES % (AUTO) 4.3 % (3-13); PLATELET COUNT 271 10^3/uL (150-450); RED BLOOD COUNT 4.42 10^6/uL (3.72-5.28); RED CELL DISTRIBUTION WIDTH 13.5 % (11.5-14.0); SEGMENTED NEUTROPHILS % (AUTO) 85.9 % (42-78); TOTAL CELLS COUNTED % (AUTO) 100 %; WHITE BLOOD COUNT 10.7 10^3/uL (4.0-10.5)
[2018-12-29 06:50] LABS: INTERNATIONAL RATION (INR) 1.09
[2018-12-29 06:51] LABS: PARTIAL THROMBOPLASTIN TIME 23.8 SEC (23.5-35.8)
[2018-12-29 06:53] LABS: PROTHROMBIN TIME 14.1 SEC (11.4-15.4)
[2018-12-29 07:13] LABS: ALKALINE PHOSPHATASE 81 U/L (38-126); ANION GAP 11 (5-19); ASPARTATE AMINO TRANSFERASE 37 U/L (14-36); BILIRUBIN,DIRECT 0.3 mg/dL (0.0-0.4); BILIRUBIN,TOTAL 0.3 mg/dL (0.2-1.3); BLOOD UREA NITROGEN 9 mg/dL (7-20); CALCIUM 9.3 mg/dL (8.4-10.2); CARBON DIOXIDE 27 mmol/L (22-30); CHLORIDE 103 mmol/L (98-107); GLUCOSE 117 mg/dL (75-110); POTASSIUM 3.4 mmol/L (3.6-5.0); TOTAL PROTEIN 7.5 g/dL (6.3-8.2)
[2018-12-29 07:30] LABS: ACETAMINOPHEN < 10 ug/mL (10-30); ALCOHOL < 10 mg/dL (NONE DETECTED); SALICYLATE < 1.0 mg/dL (2.0-20.0)
--- NOTE | 2018-12-29 07:39 | RADIOLOGY REPORT (SQ) ---
EXAM DESCRIPTION: XR CHEST 1 VIEW COMPLETED DATE/TME: 12/29/2018 06:09 CLINICAL HISTORY: 28 years, Female, ams COMPARISON: 12/08/2018 NUMBER OF VIEWS: One TECHNIQUE: AP view of the chest LIMITATIONS: None. FINDINGS: The lungs are clear. The heart is normal in size. There is no pneumothorax or pleural effusion. There is no acute fracture. IMPRESSION: No acute cardiopulmonary abnormality. copyright 2010 [employer]- All Rights Reserved
--- NOTE | 2018-12-29 07:41 | RADIOLOGY REPORT (SQ) ---
EXAM DESCRIPTION: CT HEAD WITHOUT IV CONTRAST COMPLETED DATE/TME: 12/29/2018 06:10 CLINICAL HISTORY: 28 years, Female, ams COMPARISON: 01/18/2014 TECHNIQUE: Axial CT images of the brain were obtained without contrast. DL 963 Images stored on PACS. All CT scanners at this facility use dose modulation, iterative reconstruction, and/or weight based dosing when appropriate to reduce radiation dose to as low as reasonably achievable (ALARA). [facility]: Dose Right [facility]: CareDose [facility]: Dose Right [facility]: Teradose 4D [facility]: [employer] LIMITATIONS: None. FINDINGS: The exam is somewhat limited secondary to patient motion. No definite acute cortical infarct, hemorrhage, mass, edema, hydrocephalus, or extra-axial fluid collection. The bond-white matter differentiation appears preserved. The paranasal sinuses and mastoid air cells are clear. There is no acute fracture. IMPRESSION: No acute intracranial abnormality TECHNICAL DOCUMENTATION: Quality ID # 436: Final reports with documentation of one or more dose reduction techniques (e.g., Automated exposure control, adjustment of the mA and/or kV according to patient size, use of iterative reconstruction technique) copyright 2011 [employer]- All Rights Reserved
[2018-12-29] MEDS ORDERED: ONDANSETRON HCL INJ/PF 4 MG/2 ML SDV IV ONE (09:57)
[2018-12-29 11:01] LABS: APPEARANCE,URINE SLIGHTLY-CLOUDY; BILIRUBIN,URINE NEGATIVE (NEGATIVE); COLOR,URINE YELLOW; GLUCOSE, URINE NEGATIVE (NEGATIVE); KETONES,URINE NEGATIVE (NEGATIVE); LEUKOCYTE ESTERASE,URINE NEGATIVE (NEGATIVE); NITRITE,URINE NEGATIVE (NEGATIVE); PROTEIN,URINE NEGATIVE (NEGATIVE); URINE SPECIFIC GRAVITY 1.011; UROBILINOGEN,URINE NEGATIVE mg/dL (<2.0)
[2018-12-29 11:24] LABS: URINE BARBITURATES SCREEN NEGATIVE; URINE BENZODIAZEPINES SCREEN UNCONFIRMED POSITIVE; URINE COCAINE SCREEN NEGATIVE; URINE MARIJUANA (THC) SCREEN UNCONFIRMED POSITIVE; URINE METHADONE SCREEN NEGATIVE; URINE PHENCYCLIDINE SCREEN NEGATIVE
--- NOTE | 2018-12-29 11:47 | ER Document Report ---
Entered by ROME ZAPATA SCRIBE 12/29/18 0608 Acting as scribe for:CARLY SAMUEL MD ED General - General Stated Complaint: POSSIBLE SEIZURE Time Seen by Provider: 12/29/18 06:08 Information source: Patient Notes: Patient is a 28-year-old female presenting to the emergency department arriving via EMS after she injected methamphetamine. Patient has not been responsive to verbal stimuli, she responds to painful stimuli. EMS states the patient was with friends last night and shot up methamphetamine at 2300. EMS states that the patient reported chest pain at 0 200 this morning. EMS states that the patient experienced a seizure at 0200, 0245, 0330, 0445, after that fourth episode the patient's friends called EMS. EMS states that upon arrival the patient did not respond to verbal stimuli, the only thing they recall her saying is "I do not want to go to the hospital". EMS states that they attempted to put her in a stair chair, she immediately began to have a tonic-clonic seizure that lasted about a minute and a half, she has been postictal since. EMS states that in route to the hospital they administered 5 mg of Versed IM. EMS states that en route the patient progressively got tachypneic, began desaturating, they administered oxygen. Shortly after being seen the patient's boyfriend arrives, states that she has shot up methamphetamine before. He states that she did not hit her head since injecting at 2300. TRAVEL OUTSIDE OF THE [place] IN LAST 30 DAYS: No - Related Data Allergies/Adverse Reactions: No Known Allergies Allergy (Verified 12/04/18 14:27) Past Medical History - General Information source: Patient - Social History Smoking Status: Never Smoker Cigarette use (# per day): No Chew tobacco use (# tins/day): No Frequency of alcohol use: None Drug Abuse: None Family History: Arthritis, CVA, DM, Hypertension, Malignancy, Thyroid Disfunction, Other - Grandmother with PE, diabetes, hypertension. Mother with gallbladder disease, diabetes, hypertension, asthma, obstructive sleep apnea, cardiac hypertrophy. PGM breast cancer. Mom with "possible ovarian cancer" Neurological Medical History: Reports: Hx Migraine Renal/ Medical History: Malignancy Medical History: Psychiatric Medical History: Reports: Hx Anxiety, Hx Bipolar Disorder, Hx Depression, Hx Obsessive Compulsive Disorder, Hx Post Traumatic Stress Disorder, Hx Schizophrenia - no meds Traumatic Medical History: Past Surgical History: Reports: Hx Section - x3, Hx Cholecystectomy, Hx Oral Surgery - wisdom teeth, Hx Tubal Ligation - Immunizations Immunizations up to date: Yes Hx Diphtheria, Pertussis, Tetanus Vaccination: Yes - 01/02/17 Hx Pneumococcal Vaccination: 05/16/10 Review of Systems - Review of Systems Constitutional: No symptoms reported EENT: No symptoms reported Cardiovascular: No symptoms reported Respiratory: No symptoms reported Gastrointestinal: No symptoms reported Genitourinary: No symptoms reported Female Genitourinary: No symptoms reported Musculoskeletal: No symptoms reported Skin: No symptoms reported Hematologic/Lymphatic: No symptoms reported Neurological/Psychological: See HPI, Seizure -: Yes All other systems reviewed and negative Physical Exam - Vital signs Vitals: Resp Pulse Ox 20 98 12/29/18 06:04 12/29/18 06:04 - Notes Notes: Physical Exam: General: Appears well, sleepy. HEENT: Normocephalic. Atraumatic. PERRL. Extraocular movements intact. Oropharynx clear. Neck: Supple. Non-tender. Respiratory: No respiratory distress. Clear and equal breath sounds bilaterally. Cardiovascular: Mild tachycardia. regular rhythm. Abdominal: Normal Inspection. Non-tender. No distension. Normal Bowel Sounds. Back: Non-tender. No deformity or step off. Extremities: Moves all four extremities. Upper extremities: Normal inspection. Normal ROM. Lower extremities: Normal inspection. No edema. Normal ROM. Neurological: Responds to painful stimuli, does not respond to verbal stimuli. Psychological: Normal affect. Normal Mood. Skin: Warm. Dry. Normal color. Course - Re-evaluation Re-evalutation: 12/29/18 11:46 Patient alert oriented but still appears confused will admit for postictal phase and observation 12/29/18 13:47 Addendum, approximately 2 hours after being in the emergency department patient was alert oriented x3 but still showed periods of confusion. - Vital Signs Vital signs: Temp Pulse Resp BP Pulse Ox 20 142/88 H 97 12/29/18 13:00 12/29/18 11:51 12/29/18 11:51 - Laboratory Result Diagrams: 12/29/18 06:35 12/29/18 06:35 Laboratory results interpreted by me: 12/29/18 12/29/18 06:35 06:35 WBC 10.7 H Seg Neutrophils % 85.9 H Lymphocytes % 9.3 L Absolute Neutrophils 9.2 H Potassium 3.4 L Glucose 117 H AST 37 H Salicylates < 1.0 L Acetaminophen < 10 L Discharge - Discharge Clinical Impression: Seizure-like activity, Substance abuse, Confusion Condition: Good Disposition: ADMITTED OBSERVATION Admitting Provider: [place] (Hospitalist) Unit Admitted: IMCU Scribe Attestation: 12/29/18 13:48 I personally performed the services described documentation, reviewed and edited the documentation which was dictated to describe my presence, and it accurately records my words and actions. I personally performed the services described in the documentation, reviewed and edited the documentation which was dictated to the scribe in my presence, and it accurately records my words and actions.
[2018-12-29] MEDS ORDERED: ONDANSETRON HCL INJ/PF 4 MG/2 ML SDV IV PRN (14:11)
[2018-12-29] MEDS ORDERED: IPRATROPIUM/ALBUTEROL 0.5-2.5 MG/3 ML AMPUL NEB PRN (14:11)
[2018-12-29] MEDS ORDERED: GLUCAGON,HUMAN RECOMB 1 MG INJ SUBCUT PRN (14:11)
[2018-12-29] MEDS ORDERED: ACETAMINOPHEN 325 MG TABLET PO PRN (14:11)
[2018-12-29] MEDS ORDERED: DEXTROSE 5%-NORMAL SALINE 1,000 ML IV PRN (14:11)
[2018-12-29] MEDS ORDERED: DEXTROSE 50%-WATER 25 GM/50 ML DISP.SYRIN IV PRN ×2 (14:11)
[2018-12-29] MEDS ORDERED: DEXTROSE 40% GEL 15 GM TUBE PO PRN ×2 (14:11)
[2018-12-29] MEDS ORDERED: LORAZEPAM INJ 2 MG/1 ML VIAL IV PRN (14:20)
--- NOTE | 2018-12-29 14:37 | ER Document Report ---
Doctor's Note Notes: 12/29/18 14:35 PATIENT FALL Called to the room at 3:20PM for a patient that fell. Patient is currently admitted to the hospitalist apparently for seizures. Per significant other who is in the room, patient tried to get out of bed quickly, fell and either had a seizure before she fell or after she fell. Of note, seizure pads are on the bed but someone had put the side rail down, possibly the significant other. Patient has a sac with development and housing director on one foot but the other one is off. Patient monitoring equipment had been removed by patient or significant other per nursing staff. Hospitalist who is admitting the patient has been notified and is now present in the emergency department evaluating the patient. Accu-Chek, head CT, face CT, cervical spine CT ordered. Patient is breathing with strong pulse. Security notified to please help get patient back into bed.
--- NOTE | 2018-12-29 15:12 | PDOC H&P ---
History of Present Illness Admission Date/PCP: 12/29/18 12:20 Patient complains of: seizure, drug overdose History of Present Illness: URBAN MEJIA is a 28 year old female with no significant past medical history who was brought to the ER via EMS earlier today due to seizures at home. Unfortunately patient is not oriented and hence she is unable to give me a good history. Her fianc is at bedside and he is the primary historian. Her fianc last night around 11 PM patient, fianc and friends were doing IV amphetamine and later on patient went to bed but was unable to sleep-and then she got up saying that her chest is hurting and feeling nauseous. She laid down in bed and her noted her to be shaking and what he describes as seizures. She then went back to sleep and had 3 more seizures before he called EMS and on the EMS bus she had one last one. Total per she had 5 seizures each lasting less than a minute-he described her shaking all her arms and legs with some teeth biting but no urinary or bowel incontinence. Patient was very sleepy and lethargic postictal. When I saw her in the ED she was able to tell me her first name and barely her date of . She knew she was in the hospital but did not know city/month/year/president's name. Due to her seizures prior to arriving and still being postictal hospitalist were called for admission Past Medical History Neurological Medical History: Reports: Migraine Denies: Seizures Malignancy Medical History: Psychiatric Medical History: Reports: Bipolar Disorder, Depression, Post Traumatic Stress Disorder Past Surgical History Past Surgical History: Reports: Section - x3, Cholecystectomy, Tubal Ligation Denies: Hysterectomy Social History Smoking Status: Never Smoker Frequency of Alcohol Use: Occasional Hx Recreational Drug Use: No Drugs: None Hx Prescription Drug Abuse: No - Advance Directive Resuscitation Status: Full Code Family History Family History: Arthritis, CVA, DM, Hypertension, Malignancy, Thyroid Disfunction, Other - Grandmother with PE, diabetes, hypertension. Mother with gallbladder disease, diabetes, hypertension, asthma, obstructive sleep apnea, cardiac hypertrophy. PGM breast cancer. Mom with "possible ovarian cancer" Parental Family History Reviewed: No - Patient not oriented Children Family History Reviewed: Unknown Sibling(s) Family History Reviewed.: Unknown Medication/Allergy Home Medications: No Home Medications 12/29/18 Allergies/Adverse Reactions: No Known Allergies Allergy (Verified 12/04/18 14:27) Review of Systems ROS unobtainable: Due to mental status Physical Exam Vital Signs: Temp Pulse Resp BP Pulse Ox 20 142/88 H 97 12/29/18 13:00 12/29/18 11:51 12/29/18 11:51 Intake & Output 12/28/18 12/29/18 12/30/18 06:59 06:59 06:59 Intake Total 1000 Balance 1000 General appearance: PRESENT: no acute distress Head exam: PRESENT: atraumatic, normocephalic Eye exam: ABSENT: conjunctival injection, scleral icterus Mouth exam: PRESENT: moist Neck exam: ABSENT: tracheal deviation Respiratory exam: PRESENT: clear to auscultation cami, symmetrical Cardiovascular exam: PRESENT: +S1, +S2 Pulses: PRESENT: +2 pedal pulses bilateral GI/Abdominal exam: PRESENT: normal bowel sounds, soft. ABSENT: tenderness Extremities exam: ABSENT: pedal edema Neurological exam: PRESENT: alert, altered, oriented to person, CN II-XII grossly intact. ABSENT: oriented to place, oriented to time, oriented to situation Skin exam: PRESENT: dry, warm Results Laboratory Results: 12/29/18 06:35 12/29/18 06:35 12/29/18 12/29/18 12/29/18 06:35 06:35 10:00 WBC 10.7 H RBC 4.42 Hgb 12.1 Hct 36.8 MCV 83 MCH 27.4 MCHC 32.8 RDW 13.5 Plt Count 271 Seg Neutrophils % 85.9 H Lymphocytes % 9.3 L Monocytes % 4.3 Eosinophils % 0.1 Basophils % 0.4 Absolute Neutrophils 9.2 H Absolute Lymphocytes 1.0 Absolute Monocytes 0.5 Absolute Eosinophils 0.0 Absolute Basophils 0.0 Sodium 141.1 Potassium 3.4 L Chloride 103 Carbon Dioxide 27 Anion Gap 11 BUN 9 Creatinine 0.53 Est GFR ( Amer) > 60 Est GFR (Non-Af Amer) > 60 Glucose 117 H Calcium 9.3 Magnesium 2.2 Total Bilirubin 0.3 AST 37 H Alkaline Phosphatase 81 Total Protein 7.5 Albumin 4.0 Urine Color YELLOW Urine Appearance SLIGHTLY-CLOUDY Urine pH 6.0 Ur Specific Dorr 1.011 Urine Protein NEGATIVE Urine Glucose (UA) NEGATIVE Urine Ketones NEGATIVE Urine Blood NEGATIVE Urine Nitrite NEGATIVE Ur Leukocyte Esterase NEGATIVE Urine WBC (Auto) 1 Urine RBC (Auto) 1 12/29/18 06:35 Troponin I < 0.012 Impressions: Chest X-Ray 12/29/18 06:09 IMPRESSION: No acute cardiopulmonary abnormality. copyright 2010 [employer]- All Rights Reserved Head CT 12/29/18 06:10 IMPRESSION: No acute intracranial abnormality TECHNICAL DOCUMENTATION: Quality ID # 436: Final reports with documentation of one or more dose reduction techniques (e.g., Automated exposure control, adjustment of the mA and/or kV according to patient size, use of iterative reconstruction technique) copyright 2010 [employer]- All Rights Reserved Assessment and Plan - Diagnosis (1) Seizure-like activity Is this a current diagnosis for this admission?: Yes (2) Substance abuse Is this a current diagnosis for this admission?: Yes (3) Depression Is this a current diagnosis for this admission?: Yes - Time Time Spent with patient: 35 or more minutes Anticipated discharge: Home - Inpatient Certification Based on my medical assessment, after consideration of the patient's comorbidities, presenting symptoms, or acuity I expect that the services needed warrant INPATIENT care.: Yes I certify that my determination is in accordance with my understanding of Medicare's requirements for reasonable and necessary INPATIENT services [42 CFR 412.3e].: Yes Medical Necessity: Failure to Improve With Outpatient Therapy, Need For IV Fluids, Need for Neurological Checks - Plan Summary Plan Summary: 28-year-old female who presented to the ED via EMS for seizure-like activity at home after doing IV methamphetamine and marijuana last night. Seizure-like activity-patient is a 28-year-old female with a known history of IV drug use-methamphetamine, who was having seizures at home per melissa-possible that she had altogether 5 prior to being brought to the hospital. Melissa tells me that she was doing IV drugs last night and started to have seizures. We will place her in observation for 24 hours to observe her seizures in the meantime start her on Ativan 2 mg every 2 hours for seizure activities. Neurochecks, seizure precautions, fall precautions will be in place. We will also start her on Keppra 500 mg twice daily to increase her seizure threshold until the IV drugs have cleared her system. Depression-noted IV drug use-noted
--- NOTE | 2018-12-29 15:16 | Progress Note ---
Provider Note Provider Note: After admitting the patient and examining her I was called back by nursing this afternoon that patient was found on the floor she fell face first and has hematoma and laceration of her eyebrow. ED physician responded and I would evaluate patient. Per melissa who was in the room at the time of the event-he states that he turned his back to her while she got off the stretcher tried to walk and fell forward hitting her head on the ED floor-states that she started to shake and move her head and arms and he believes that was a seizure. C- collar was placed patient was placed back on the bed and a stat CT head and neck was ordered and pending. Patient does have a laceration of the eyebrow. She has a hematoma and a laceration of the left eyebrow. She is able to follow commands and squeeze my hands on both sides wiggle her toes. She does open her eyes although there is blood all over it-we will do a more thorough exam when she comes back from CT.
--- NOTE | 2018-12-29 15:22 | RADIOLOGY REPORT (SQ) ---
EXAM DESCRIPTION: CT HEAD WITHOUT COMPLETED DATE/TIME: 12/29/2018 3:07 pm REASON FOR STUDY: fall COMPARISON: 12/29/2018. TECHNIQUE: Axial images acquired through the brain without intravenous contrast. Images reviewed wi th bone, brain and subdural windows. Additional sagittal and coronal reconstructions were generated. Images stored on PACS. All CT scanners at this facility use dose modulation, iterative reconstruction, and/or weight based d osing when appropriate to reduce radiation dose to as low as reasonably achievable (ALARA). [facility]: Dose Right [facility]: CareDose [facility]: Dose Right [facility]: Teradose 4D [facility]: [employer] RADIATION DOSE: CT Rad equipment meets quality standard of care and radiation dose reduction techniq ues were employed. CTDIvol: 53.2 mGy. DLP: 991 mGy-cm. mGy. LIMITATIONS: None. FINDINGS: VENTRICLES: Normal size and contour. CEREBRUM: No masses. No hemorrhage. No midline shift. No evidence for acute infarction. Normal gra y/white matter differentiation. No areas of low density in the white matter. CEREBELLUM: No masses. No hemorrhage. No alteration of density. No evidence for acute infarction. EXTRAAXIAL SPACES: No fluid collections. No masses. ORBITS AND GLOBE: No intra- or extraconal masses. Normal contour of globe without masses. CALVARIUM: No fracture. PARANASAL SINUSES: No fluid or mucosal thickening. SOFT TISSUES: Soft tissue hematoma in the left frontal region. OTHER: No other significant finding. IMPRESSION: SOFT TISSUE HEMATOMA IN THE LEFT FRONTAL REGION. NO SKULL FRACTURE. NORMAL BRAIN CT WI THOUT CONTRAST. EVIDENCE OF ACUTE STROKE: NO. COMMENT: Quality ID # 436: Final reports with documentation of one or more dose reduction techniques (e.g., Automated exposure control, adjustment of the mA and/or kV according to patient size, use of iterative reconstruction technique) TECHNICAL DOCUMENTATION: JOB ID: [id number] [email or web address]- All Rights Reserved Reading location - IP/workstation name: [email or web address]
--- NOTE | 2018-12-29 15:25 | RADIOLOGY REPORT (SQ) ---
EXAM DESCRIPTION: CT CERVICAL SPINE WITHOUT COMPLETED DATE/TIME: 12/29/2018 3:07 pm REASON FOR STUDY: fall COMPARISON: None. TECHNIQUE: Axial images acquired through the cervical spine without intravenous contrast. Images re viewed with lung, soft tissue and bone windows. Reconstructed coronal and sagittal MPR images review ed. Images stored on PACS. All CT scanners at this facility use dose modulation, iterative reconstruction, and/or weight based d osing when appropriate to reduce radiation dose to as low as reasonably achievable (ALARA). [facility]: Dose Right [facility]: CareDose [facility]: Dose Right [facility]: Teradose 4D [facility]: [employer] RADIATION DOSE: CT Rad equipment meets quality standard of care and radiation dose reduction techniq ues were employed. CTDIvol: 22.4 mGy. DLP: 440 mGy-cm. mGy. LIMITATIONS: None. FINDINGS: ALIGNMENT: Anatomic. MINERALIZATION: Normal. VERTEBRAL BODIES: No fractures or dislocation. DISCS: No significant disc disease. FACETS, LATERAL MASSES, POSTERIOR ELEMENTS: No fractures. No dislocation. No acute findings. HARDWARE: None in the spine. VISUALIZED RIBS: No fractures. LUNG APICES AND SOFT TISSUES: No significant or acute findings. OTHER: No other significant finding. IMPRESSION: NO ACUTE OR SIGNIFICANT FINDINGS IN THE CERVICAL SPINE. TECHNICAL DOCUMENTATION: JOB ID: [id number] Quality ID # 436: Final reports with documentation of one or more dose reduction techniques (e.g., Au tomated exposure control, adjustment of the mA and/or kV according to patient size, use of iterative reconstruction technique) 2010 [employer]- All Rights Reserved Reading location - IP/workstation name: [email or web address]
--- NOTE | 2018-12-29 15:27 | RADIOLOGY REPORT (SQ) ---
EXAM DESCRIPTION: CT FACIAL AREA WITHOUT COMPLETED DATE/TIME: 12/29/2018 3:07 pm REASON FOR STUDY: fall COMPARISON: None. TECHNIQUE: Noncontrasted images through the facial bones and orbits windowed for bone and soft tissu e. Additional coronal and sagittal reconstructed images reviewed. All images stored on PACS. All CT scanners at this facility use dose modulation, iterative reconstruction, and/or weight based d osing when appropriate to reduce radiation dose to as low as reasonably achievable (ALARA). [facility]: Dose Right [facility]: CareDose [facility]: Dose Right [facility]: Teradose 4D [facility]: [employer] RADIATION DOSE: CT Rad equipment meets quality standard of care and radiation dose reduction techniq ues were employed. CTDIvol: 30.4 mGy. DLP: 940 mGy-cm. mGy. LIMITATIONS: None. FINDINGS: FACIAL BONES: No fracture or bone lesion. ORBITS: Intact. No fracture. Symmetric intact globes and retroorbital soft tissues. PARANASAL SINUSES: Clear. No significant mucosal thickening, mass or fluid. No nasal polyps. Maxill cornelius sinus outlets are patent. SOFT TISSUES: Soft tissue hematoma in the left frontal region. INFERIOR BRAIN: Limited view. No acute findings. OTHER: No other significant finding. IMPRESSION: SOFT TISSUE HEMATOMA IN THE LEFT FRONTAL REGION. NO SKULL OR FACIAL BONE FRACTURES. TECHNICAL DOCUMENTATION: JOB ID: [id number] Quality ID # 436: Final reports with documentation of one or more dose reduction techniques (e.g., Au tomated exposure control, adjustment of the mA and/or kV according to patient size, use of iterative reconstruction technique) 2010 [employer]- All Rights Reserved Reading location - IP/workstation name: [email or web address]
[2018-12-29] MEDS: LEVETIRACETAM 500 MG/NACL-ISO 500 MG/100 ML RTUPB IV SCH (18:35)
[2018-12-29] MEDS: FAMOTIDINE 20 MG TABLET PO SCH (22:14)
[2018-12-30 02:42] LABS: ABSOLUTE BASOPHILS # (AUTO) 0.1 10^3/uL (0.0-0.2); ABSOLUTE EOSINOPHILS # (AUTO) 0.1 10^3/uL (0.0-0.6); ABSOLUTE LYMPHOCYTES (AUTO) 2.6 10^3/uL (0.5-4.7); ABSOLUTE MONOCYTES (AUTO) 0.7 10^3/uL (0.1-1.4); ABSOLUTE NEUT (AUTO) 8.4 10^3/uL (1.7-8.2); BASOPHILS % (AUTO) 0.8 % (0-2); EOSINOPHILS % (AUTO) 0.8 % (0-6); HEMATOCRIT 36.2 % (36.0-47.0); HEMOGLOBIN 11.8 g/dL (12.0-15.5); LYMPHOCYTES % (AUTO) 21.6 % (13-45); MEAN CORPUSCULAR HEMOGLOBIN 26.9 pg (27.0-33.4); MEAN CORPUSCULAR HGB CONC 32.6 g/dL (32.0-36.0); MEAN CORPUSCULAR VOLUME 83 fl (80-97); MONOCYTES % (AUTO) 5.9 % (3-13); PLATELET COUNT 309 10^3/uL (150-450); RED BLOOD COUNT 4.39 10^6/uL (3.72-5.28); RED CELL DISTRIBUTION WIDTH 13.3 % (11.5-14.0); SEGMENTED NEUTROPHILS % (AUTO) 70.9 % (42-78); TOTAL CELLS COUNTED % (AUTO) 100 %; WHITE BLOOD COUNT 11.9 10^3/uL (4.0-10.5)
[2018-12-30 03:09] LABS: ALBUMIN 3.9 g/dL (3.5-5.0); ALKALINE PHOSPHATASE 86 U/L (38-126); ANION GAP 9 (5-19); ASPARTATE AMINO TRANSFERASE 42 U/L (14-36); BILIRUBIN,DIRECT 0.4 mg/dL (0.0-0.4); BILIRUBIN,TOTAL 0.4 mg/dL (0.2-1.3); BLOOD UREA NITROGEN 4 mg/dL (7-20); CALCIUM 9.1 mg/dL (8.4-10.2); CARBON DIOXIDE 31 mmol/L (22-30); CHLORIDE 102 mmol/L (98-107); GLUCOSE 97 mg/dL (75-110); TOTAL PROTEIN 7.6 g/dL (6.3-8.2)
[2018-12-30 03:12] LABS: FREE T4 (FREE THYROXINE) 1.29 ng/dL (0.78-2.19)
[2018-12-30 03:26] LABS: THYROID STIMULATING HORMONE 0.27 uIU/mL (0.47-4.68)
[2018-12-30] MEDS ORDERED: MAGNESIUM SULFATE 1 GM/D5W 100 ML IV SCH (03:45)
[2018-12-30] MEDS: POTASSIUM CHLORIDE 10 MEQ CAPSULE.ER PO SCH ×2 (04:13→06:47)
[2018-12-30] MEDS: LEVETIRACETAM 500 MG/NACL-ISO 500 MG/100 ML RTUPB IV SCH ×2 (06:49→17:35)
[2018-12-30] MEDS ORDERED: ENOXAPARIN SODIUM INJ 40 MG/0.4 ML DISP.SYRIN SUBCUT SCH (10:00)
--- NOTE | 2018-12-30 10:23 | EKG REPORT ---
SEVERITY:- ABNORMAL ECG - SINUS RHYTHM NONSPECIFIC T ABNORMALITIES, ANT-LAT LEADS BORDERLINE PROLONGED QT INTERVAL : Confirmed by: Lauren Oneal 30-Dec-2018 10:21:52
--- NOTE | 2018-12-30 10:25 | EKG REPORT ---
SEVERITY:- ABNORMAL ECG - SINUS TACHYCARDIA NONSPECIFIC INTRAVENTRICULAR CONDUCTION DELAY : Confirmed by: Lauren Oneal 30-Dec-2018 10:24:59
[2018-12-30] MEDS: FAMOTIDINE 20 MG TABLET PO SCH ×2 (11:22→21:47)
[2018-12-30] MEDS: METOCLOPRAMIDE HCL INJ/PF 10 MG/2 ML SDV IV SCH ×2 (11:22→17:07)
--- NOTE | 2018-12-30 12:50 | PDOC PROGRESS REPORT ---
Subjective Progress Note for:: 12/30/18 Subjective:: This is 28 years old female patient brought with chief complaint of altered mental status seizure and drug overdose. According to her significant other around 11 PM the patient and her significant other and friends where administering IV amphetamine and letter on patient went to bed but was unable to sleep and then she got up saying that her chest is hurting and feeling nauseous. Patient started to have new onset tonic-clonic seizure about 4 episode at home and 1 episode while being transported by EMS. While awaiting transfer to [facility] patient fell off her bed and sustained injury to her left eyebrow. Her CT scan of the head and spine are negative. Patient has been started on Keppra IV 500 mg twice a day and had no more seizure reported. This morning I discussed things the side effect of consequences of vitamin including seizure, stroke and myocardial infarction and I advised her to encourage both the patient and her fianc to quit using illicit drugs. They voiced agreement. Reason For Visit: DRUG OVERDOSE Physical Exam Vital Signs: Temp Pulse Resp BP Pulse Ox 97.9 F 85 17 119/71 100 12/30/18 07:50 12/30/18 07:50 12/30/18 07:50 12/30/18 07:50 12/30/18 07:50 Intake & Output 12/29/18 12/30/18 12/31/18 06:59 06:59 06:59 Intake Total 1620 580 Output Total 2 0 Balance 1618 580 Weight 102.8 kg General appearance: PRESENT: no acute distress, well-developed, well-nourished Head exam: PRESENT: other - Stage II laceration over the left eyebrow Eye exam: PRESENT: conjunctiva pink, EOMI, PERRLA. ABSENT: scleral icterus Ear exam: PRESENT: normal external ear exam Mouth exam: PRESENT: moist, tongue midline Neck exam: ABSENT: carotid bruit, JVD, lymphadenopathy, thyromegaly Respiratory exam: PRESENT: clear to auscultation caim. ABSENT: rales, rhonchi, wheezes Cardiovascular exam: PRESENT: RRR. ABSENT: diastolic murmur, rubs, systolic murmur Pulses: PRESENT: normal dorsalis pedis pul Vascular exam: PRESENT: normal capillary refill GI/Abdominal exam: PRESENT: normal bowel sounds, soft. ABSENT: distended, guarding, mass, organolmegaly, rebound, tenderness Rectal exam: PRESENT: deferred Extremities exam: PRESENT: full ROM. ABSENT: calf tenderness, clubbing, pedal edema Neurological exam: PRESENT: alert, awake, oriented to person, oriented to place, oriented to time, oriented to situation, CN II-XII grossly intact. ABSENT: motor sensory deficit Psychiatric exam: PRESENT: appropriate affect, normal mood. ABSENT: homicidal ideation, suicidal ideation Skin exam: PRESENT: dry, intact, warm. ABSENT: cyanosis, rash Results Laboratory Results: 12/30/18 02:28 12/30/18 02:28 12/30/18 12/30/18 12/30/18 02:28 02:28 02:28 WBC 11.9 H RBC 4.39 Hgb 11.8 L Hct 36.2 MCV 83 MCH 26.9 L MCHC 32.6 RDW 13.3 Plt Count 309 Seg Neutrophils % 70.9 Lymphocytes % 21.6 Monocytes % 5.9 Eosinophils % 0.8 Basophils % 0.8 Absolute Neutrophils 8.4 H Absolute Lymphocytes 2.6 Absolute Monocytes 0.7 Absolute Eosinophils 0.1 Absolute Basophils 0.1 Sodium Cancelled Potassium Cancelled Chloride Cancelled Carbon Dioxide Cancelled Anion Gap Cancelled BUN Cancelled Creatinine Cancelled Est GFR ( Amer) Cancelled Est GFR (Non-Af Amer) Cancelled Glucose Cancelled Calcium Cancelled Magnesium Cancelled Total Bilirubin Cancelled AST Cancelled Alkaline Phosphatase Cancelled Total Protein Cancelled Albumin Cancelled TSH 0.27 L Free T4 1.29 12/30/18 12/30/18 02:28 08:09 WBC RBC Hgb Hct MCV MCH MCHC RDW Plt Count Seg Neutrophils % Lymphocytes % Monocytes % Eosinophils % Basophils % Absolute Neutrophils Absolute Lymphocytes Absolute Monocytes Absolute Eosinophils Absolute Basophils Sodium 141.5 Potassium 3.0 L* Chloride 102 Carbon Dioxide 31 H Anion Gap 9 BUN 4 L Creatinine 0.44 L Est GFR ( Amer) > 60 Est GFR (Non-Af Amer) > 60 Glucose 97 Calcium 9.1 Magnesium 2.3 2.1 Total Bilirubin 0.4 AST 42 H Alkaline Phosphatase 86 Total Protein 7.6 Albumin 3.9 TSH Free T4 12/29/18 12/29/18 12/29/18 06:35 17:00 20:05 Troponin I < 0.012 < 0.012 < 0.012 12/30/18 02:28 Troponin I < 0.012 Impressions: Cervical Spine CT 12/29/18 00:00 IMPRESSION: NO ACUTE OR SIGNIFICANT FINDINGS IN THE CERVICAL SPINE. Chest X-Ray 12/29/18 06:09 IMPRESSION: No acute cardiopulmonary abnormality. copyright 2010 [employer]- All Rights Reserved Head CT 12/29/18 06:10 IMPRESSION: No acute intracranial abnormality TECHNICAL DOCUMENTATION: Quality ID # 436: Final reports with documentation of one or more dose reduction techniques (e.g., Automated exposure control, adjustment of the mA and/or kV according to patient size, use of iterative reconstruction technique) copyright 2010 [employer]- All Rights Reserved Facial Bones CT 12/29/18 14:27 IMPRESSION: SOFT TISSUE HEMATOMA IN THE LEFT FRONTAL REGION. NO SKULL OR FACIAL BONE FRACTURES. Assessment and Plan - Diagnosis (1) Acute encephalopathy Is this a current diagnosis for this admission?: Yes Plan: It is amphetamine induced. Now currently patient is awake alert and oriented. (2) New onset seizure Is this a current diagnosis for this admission?: Yes Plan: Which is amphetamine induced. Patient has been started on Keppra 500 mg IV every 12 hours. Since this is a provoked seizure I do not think it is necessary to continue the Keppra upon discharge. (3) Hypokalemia Is this a current diagnosis for this admission?: Yes Plan: Replaced (4) Polysubstance abuse Is this a current diagnosis for this admission?: Yes Plan: Patient counseled and encouraged to quit using illicit drugs.
[2018-12-31 05:53] LABS: ANION GAP 11 (5-19); BLOOD UREA NITROGEN 5 mg/dL (7-20); CALCIUM 9.4 mg/dL (8.4-10.2); CARBON DIOXIDE 29 mmol/L (22-30); CHLORIDE 100 mmol/L (98-107); GLUCOSE 89 mg/dL (75-110); POTASSIUM 3.3 mmol/L (3.6-5.0)
[2018-12-31] MEDS: LEVETIRACETAM 500 MG/NACL-ISO 500 MG/100 ML RTUPB IV SCH (05:56)
[2018-12-31] MEDS: METOCLOPRAMIDE HCL INJ/PF 10 MG/2 ML SDV IV SCH (08:22)
[2018-12-31] MEDS ORDERED: POTASSIUM CHLORIDE 10 MEQ CAPSULE.ER PO ONE (08:30)
[2018-12-31 08:40] VITALS: BP 104/64
--- NOTE | 2018-12-31 08:42 | PDOC DISCHARGE SUMMARY ---
General - Admit/Disc Date/PCP Admission Date/Primary Care Provider: 12/29/18 12:20 Discharge Date: 12/31/18 - Discharge Diagnosis (1) Acute encephalopathy Is this a current diagnosis for this admission?: Yes (2) New onset seizure Is this a current diagnosis for this admission?: Yes (3) Hypokalemia Is this a current diagnosis for this admission?: Yes (4) Polysubstance abuse Is this a current diagnosis for this admission?: Yes - Additional Information Resuscitation Status: Full Code Home Medications: No Home Medications 12/29/18 History of Present Illness History of Present Illness: URBAN MEJIA is a 28 year old female with no significant past medical history who was brought to the ER via EMS earlier today due to seizures at home. Unfortunately patient is not oriented and hence she is unable to give me a good history. Her fianc is at bedside and he is the primary historian. Her fianc last night around 11 PM patient, fianc and friends were doing IV amphetamine and later on patient went to bed but was unable to sleep-and then she got up saying that her chest is hurting and feeling nauseous. She laid down in bed and her noted her to be shaking and what he describes as seizures. She then went back to sleep and had 3 more seizures before he called EMS and on the EMS bus she had one last one. Total per she had 5 seizures each lasting less than a minute-he described her shaking all her arms and legs with some teeth biting but no urinary or bowel incontinence. Patient was very sleepy and lethargic postictal. When I saw her in the ED she was able to tell me her first name and barely her date of . She knew she was in the hospital but did not know city/month/year/president's name. Hospital Course Hospital Course: This is 28 years old female patient brought with chief complaint of altered mental status seizure and drug overdose. According to her significant o ther around 11 PM the patient and her significant other and friends where administering IV amphetamine and letter on patient went to bed but was unable to sleep and then she got up saying that her chest is hurting and feeling nauseous. Patient started to have new onset tonic-clonic seizure about 4 episode at home and 1 episode while being transported by EMS. While awaiting transfer to [facility] patient fell off her bed and sustained injury to her left eyebrow. Her CT scan of the head and spine are negative. Patient has been started on Keppra IV 500 mg twice a day and had no more seizure reported. This morning I discussed things the side effect of consequences of vitamin including seizure, stroke and myocardial infarction and I advised her to encourage both the patient and her fianc to quit using illicit drugs. They voiced agreement. 12/31/2018: Patient seen and examined while she is resting in bed comfortably. She is awake alert oriented. She is not in pain or distress. No more seizure activity. Her vital signs and blood works are unremarkable. Patient is stable enough to go home. I reinforced my counseling encouragement for the patient to stop using illicit drugs including methamphetamine. N both patient and her significant other voices agreement. Patient is stable enough to go home. There is no need to send her home with Keppra. Physical Exam Vital Signs: Temp Pulse Resp BP Pulse Ox 97.9 F 71 20 123/73 100 12/30/18 23:41 12/31/18 07:00 12/30/18 23:41 12/30/18 23:41 12/30/18 23:41 Intake & Output 12/30/18 12/31/18 01/01/19 06:59 06:59 06:59 Intake Total 1620 1640 Output Total 2 200 Balance 1618 1440 Weight 102.8 kg 105.3 kg General appearance: PRESENT: no acute distress Eye exam: PRESENT: conjunctiva pink Respiratory exam: PRESENT: clear to auscultation cami. ABSENT: rales, rhonchi, wheezes Cardiovascular exam: PRESENT: RRR. ABSENT: diastolic murmur, rubs, systolic murmur GI/Abdominal exam: PRESENT: normal bowel sounds, soft. ABSENT: distended, guarding, mass, organolmegaly, rebound, tenderness Neurological exam: PRESENT: alert, awake, oriented to person, oriented to place, oriented to time, oriented to situation Results Laboratory Results: 12/30/18 02:28 12/31/18 05:09 12/30/18 12/31/18 08:09 05:09 Sodium 139.9 Potassium 3.3 L Chloride 100 Carbon Dioxide 29 Anion Gap 11 BUN 5 L Creatinine 0.50 L Est GFR ( Amer) > 60 Est GFR (Non-Af Amer) > 60 Glucose 89 Calcium 9.4 Magnesium 2.1 12/29/18 12/29/18 12/29/18 06:35 17:00 20:05 Troponin I < 0.012 < 0.012 < 0.012 12/30/18 02:28 Troponin I < 0.012 Impressions: Cervical Spine CT 12/29/18 00:00 IMPRESSION: NO ACUTE OR SIGNIFICANT FINDINGS IN THE CERVICAL SPINE. Chest X-Ray 12/29/18 06:09 IMPRESSION: No acute cardiopulmonary abnormality. copyright 2010 [employer]- All Rights Reserved Head CT 12/29/18 06:10 IMPRESSION: No acute intracranial abnormality TECHNICAL DOCUMENTATION: Quality ID # 436: Final reports with documentation of one or more dose reduction techniques (e.g., Automated exposure control, adjustment of the mA and/or kV according to patient size, use of iterative reconstruction technique) copyright 2011 [employer]- All Rights Reserved Facial Bones CT 12/29/18 14:27 IMPRESSION: SOFT TISSUE HEMATOMA IN THE LEFT FRONTAL REGION. NO SKULL OR FACIAL BONE FRACTURES. Qualifiers - * PATIENT BEING DISCHARGED WITH ANY OF THE FOLLOWING DIAGNOSIS: No Acute Heart Failure - Is this a Heart Failure Patient?: No LVEF < 40%?: No- if no continue to question #3 3. Anticoagulant therapy for permanect/persistent/paraoxysmal Afib or Aflutter: N/A
== END 2018-12-31 11:59 | disposition home or self-care (01) ==
LOC: ER 06:00 → EH 12:20 → 3S 16:31
PROVIDERS: ADMIT Family Medicine; ATTEND Family Medicine
DX: G93.40 Encephalopathy, unspecified (principal); T43.621A Poisoning by amphetamines, accidental (unintentional), initial encounter; G40.89 Other seizures; E87.6 Hypokalemia; F15.10 Other stimulant abuse, uncomplicated; F12.10 Cannabis abuse, uncomplicated; R11.0 Nausea; F32.9 Major depressive disorder, single episode, unspecified; S01.112A Laceration without foreign body of left eyelid and periocular area, initial encounter; W06.XXXA Fall from bed, initial encounter; Y92.230 Patient room in hospital as the place of occurrence of the external cause; R00.0 Tachycardia, unspecified; R07.9 Chest pain, unspecified; R06.82 Tachypnea, not elsewhere classified; Z98.51 Tubal ligation status; Z82.49 Family history of ischemic heart disease and other diseases of the circulatory system; Z82.3 Family history of stroke; Z90.49 Acquired absence of other specified parts of digestive tract
CPT/HCPCS: 93005 ×2; 99285; 96361; 96374; 96375; 36415 ×3; 87086; 84439; 82962; 80307 ×4; 84702; 83735 ×2; 84443; 85025 ×2; 85610; 85730; 80048; 80053 ×2; 81001; 84484 ×2; 71045; 70450; 70486; 72125; 93010 ×2; J2765 ×2; J2310; J2405 ×2; J7030; J1953 ×3; G0378

== ENCOUNTER 2019-02-16 09:23 | Inpatient (IN) | payer SELFPAY ==
[2019-02-16 09:50] LABS: ABSOLUTE LYMPHOCYTES (AUTO) 0.8 10^3/uL (0.5-4.7); ABSOLUTE MONOCYTES (AUTO) 0.5 10^3/uL (0.1-1.4); ABSOLUTE NEUT (AUTO) 11.1 10^3/uL (1.7-8.2); BASOPHILS % (AUTO) 0.3 % (0-2); HEMATOCRIT 37.6 % (36.0-47.0); HEMOGLOBIN 12.3 g/dL (12.0-15.5); LYMPHOCYTES % (AUTO) 6.2 % (13-45); MEAN CORPUSCULAR HEMOGLOBIN 27.6 pg (27.0-33.4); MEAN CORPUSCULAR HGB CONC 32.7 g/dL (32.0-36.0); MEAN CORPUSCULAR VOLUME 84 fl (80-97); MONOCYTES % (AUTO) 3.8 % (3-13); PLATELET COUNT 327 10^3/uL (150-450); RED BLOOD COUNT 4.46 10^6/uL (3.72-5.28); RED CELL DISTRIBUTION WIDTH 14.4 % (11.5-14.0); SEGMENTED NEUTROPHILS % (AUTO) 89.7 % (42-78); TOTAL CELLS COUNTED % (AUTO) 100 %; WHITE BLOOD COUNT 12.3 10^3/uL (4.0-10.5)
[2019-02-16] MEDS ORDERED: LORAZEPAM INJ 2 MG/1 ML VIAL ONE (10:10)
[2019-02-16 10:15] LABS: ALBUMIN 4.4 g/dL (3.5-5.0); ALKALINE PHOSPHATASE 74 U/L (38-126); ASPARTATE AMINO TRANSFERASE 36 U/L (14-36); BILIRUBIN,DIRECT 0.2 mg/dL (0.0-0.4); BILIRUBIN,TOTAL 0.3 mg/dL (0.2-1.3); BLOOD UREA NITROGEN 9 mg/dL (7-20); CALCIUM 9.6 mg/dL (8.4-10.2); GLUCOSE 139 mg/dL (75-110); POTASSIUM 3.9 mmol/L (3.6-5.0); TOTAL PROTEIN 8.2 g/dL (6.3-8.2)
[2019-02-16] MEDS ORDERED: LORAZEPAM INJ 2 MG/1 ML VIAL IV ONE (10:16)
[2019-02-16 10:20] LABS: CARBON DIOXIDE 17 mmol/L (22-30); CHLORIDE 104 mmol/L (98-107)
--- NOTE | 2019-02-16 10:21 | ER Document Report ---
ED Seizure - General Chief Complaint: Seizure Stated Complaint: POSSIBLE SEIZURE Time Seen by Provider: 02/16/19 09:39 Notes: Patient is being seen for seizures. We believe patient overdosed on amphetamines. The patient reportedly had texted her family that she was going to kill herself by overdosing on methamphetamine. EMS was called to the scene and they did not give the patient any medications, but she had two seizures in route to the emergency department. She arrives unconscious and unable to provide any further information. Patient supposedly has a history of seizure in December, do not know if that is her first 1 or if she is on any treatment for seizures at this time. Was able to locate medical records from December 29, 2018 admission of this patient for basically the same presentation as today. At that time, she was diagnosed with an acute encephalopathy and a new onset seizures. She also had hypokalemia and polysubstance abuse. Patient just had a seizure here in the emergency department, lasting about 10 to 15 seconds. - Related Data Allergies/Adverse Reactions: No Known Allergies Allergy (Verified 12/04/18 14:27) Past Medical History - Social History Smoking Status: Unknown if Ever Smoked Family History: Arthritis, CVA, DM, Hypertension, Malignancy, Thyroid Disfunction, Other - Grandmother with PE, diabetes, hypertension. Mother with gallbladder disease, diabetes, hypertension, asthma, obstructive sleep apnea, cardiac hypertrophy. PGM breast cancer. Mom with "possible ovarian cancer" Neurological Medical History: Reports: Hx Migraine, Hx Seizures - Patient had a seizure in December of this year and was admitted to this hospi Renal/ Medical History: Malignancy Medical History: Psychiatric Medical History: Reports: Hx Anxiety, Hx Bipolar Disorder, Hx Depression, Hx Obsessive Compulsive Disorder, Hx Post Traumatic Stress Disorder, Hx Schizophrenia - no meds Traumatic Medical History: Past Surgical History: Reports: Hx Section - x3, Hx Cholecystectomy, Hx Oral Surgery - wisdom teeth, Hx Tubal Ligation. Denies: Hx Hysterectomy - Immunizations Immunizations up to date: Yes Hx Diphtheria, Pertussis, Tetanus Vaccination: Yes - 01/02/17 Hx Pneumococcal Vaccination: 05/16/10 Review of Systems - Review of Systems -: Yes ROS unobtainable due to patient's medical condition - Patient is unconscious. She just had a seizure here in the emergency depar Physical Exam - Vital signs Vitals: Resp Pulse Ox 12 94 02/16/19 10:00 10/04/19 10:00 Interpretation: Tachycardic. No: Hypotensive, Hypoxic, Febrile Notes: PHYSICAL EXAMINATION: GENERAL: She is unconscious and unresponsive to verbal or tactile stimulation. She appears to be postictal and nurses say she just had about a 10 to 15-second seizure. HEAD: No scalp hematomas felt. Patient does have some minor appearing trauma to the face, consisting of a couple of abrasions and what appears to be very faint bruises. EYES: Pupils dilated bilaterally and symmetrical. Unable to do extraocular movements. ENT: Patient appears to have a small cut of the right lateral posterior tongue with only some small amount of swelling. No impingement or obstruction of her oral airway. NECK: Normal range of motion, supple. LUNGS: Breath sounds clear and equal bilaterally. HEART: Regular rate and rhythm without murmurs. ABDOMEN: Soft, nontender. No guarding or rebound. No masses. BACK: No tenderness throughout entire back. EXTREMITIES: Normal range of motion without pain. NEUROLOGICAL: Unresponsive and does not follow any commands. Does not answer any questions. Responds only to significant painful stimulation. PSYCH: Unable to assess. SKIN: Warm, dry, no rashes. Course - Re-evaluation Re-evalutation: 02/16/19 11:20 Patient seems to be awakening somewhat now. She opens her eyes to voice, but does not follow commands or answer questions. 02/16/19 12:28 Discussed the case with Dr. Flor, who will be the attending physician for this lady to be admitted to ICU. - Vital Signs Vital signs: Temp Pulse Resp BP Pulse Ox 98.6 F 77 17 96/81 L 97 02/18/19 07:51 02/18/19 07:51 02/18/19 08:00 02/18/19 07:51 02/18/19 07:51 - Laboratory Result Diagrams: 02/18/19 07:39 02/18/19 07:39 Laboratory results interpreted by me: 02/16/19 02/16/19 02/16/19 09:33 09:33 09:52 WBC 12.3 H RDW 14.4 H Lymph % (Auto) 6.2 L Absolute Neuts (auto) 11.1 H Seg Neutrophils % 89.7 H Carbon Dioxide 17 L Anion Gap 22 H Glucose 139 H Urine Protein 30 H - Diagnostic Test Radiology reviewed: Image reviewed, Reports reviewed - Patient had a negative CT scan of her head, facial bones, and C-spine. Chest x-ray showed slight cardiomegaly but otherwise normal. - EKG Interpretation by Me EKG shows normal: Sinus rhythm Rate: Tachycardia - Rate of 124 Additional EKG results interpreted by me: 02/16/19 12:34 Otherwise, EKG is normal. Critical Care Note - Critical Care Note Total time excluding time spent on procedures (mins): 45 Discharge - Discharge Clinical Impression: Seizures, Overdose methamphetamine, Suicidal ideation Condition: Serious Disposition: ADMITTED INPATIENT Admitting Provider: Dr. Flor Unit Admitted: ICU
[2019-02-16 10:22] LABS: ALCOHOL < 10 mg/dL (NONE DETECTED); ANION GAP 22 (5-19)
[2019-02-16] MEDS ORDERED: LEVETIRACETAM 1000 MG/NACL-ISO 1,000 MG/100 ML RTUPB IV ONE (10:27)
[2019-02-16 10:49] LABS: APPEARANCE,URINE CLEAR; BILIRUBIN,URINE NEGATIVE (NEGATIVE); COLOR,URINE YELLOW; GLUCOSE, URINE NEGATIVE (NEGATIVE); KETONES,URINE NEGATIVE (NEGATIVE); LEUKOCYTE ESTERASE,URINE NEGATIVE (NEGATIVE); NITRITE,URINE NEGATIVE (NEGATIVE); PROTEIN,URINE 30 mg/dL (NEGATIVE); URINE SPECIFIC GRAVITY 1.019; UROBILINOGEN,URINE NEGATIVE mg/dL (<2.0)
--- NOTE | 2019-02-16 10:59 | RADIOLOGY REPORT (SQ) ---
EXAM DESCRIPTION: CHEST SINGLE VIEW COMPLETED DATE/TIME: 02/16/2019 10:35 am REASON FOR STUDY: Seizure COMPARISON: 12/29/2018 EXAM PARAMETERS: NUMBER OF VIEWS: One view. TECHNIQUE: Single frontal radiographic view of the chest acquired. RADIATION DOSE: NA LIMITATIONS: None. FINDINGS: LUNGS AND PLEURA: No opacities, masses or pneumothorax. No pleural effusion. MEDIASTINUM AND HILAR STRUCTURES: No masses. Contour normal. HEART AND VASCULAR STRUCTURES: Borderline heart size. No pulmonary edema. BONES: No acute findings. HARDWARE: None in the chest. OTHER: No other significant finding. IMPRESSION: Borderline cardiomegaly without pulmonary edema. TECHNICAL DOCUMENTATION: JOB ID: [id number] [employer]- All Rights Reserved Reading location - IP/workstation name: [email or web address]
[2019-02-16 11:01] LABS: URINE AMPHETAMINES SCREEN UNCONFIRMED POSITIVE; URINE BARBITURATES SCREEN NEGATIVE; URINE BENZODIAZEPINES SCREEN NEGATIVE; URINE COCAINE SCREEN NEGATIVE; URINE MARIJUANA (THC) SCREEN UNCONFIRMED POSITIVE; URINE METHADONE SCREEN NEGATIVE; URINE PHENCYCLIDINE SCREEN NEGATIVE
--- NOTE | 2019-02-16 11:18 | RADIOLOGY REPORT (SQ) ---
EXAM DESCRIPTION: CT HEAD WITHOUT COMPLETED DATE/TIME: 02/16/2019 11:04 am REASON FOR STUDY: Seizures COMPARISON: 12/29/2018 TECHNIQUE: Axial images acquired through the brain without intravenous contrast. Images reviewed wi th bone, brain and subdural windows. Additional sagittal and coronal reconstructions were generated. Images stored on PACS. All CT scanners at this facility use dose modulation, iterative reconstruction, and/or weight based d osing when appropriate to reduce radiation dose to as low as reasonably achievable (ALARA). [facility]: Dose Right [facility]: CareDose [facility]: Dose Right [facility]: Teradose 4D [facility]: [employer] RADIATION DOSE: CT Rad equipment meets quality standard of care and radiation dose reduction techniq ues were employed. CTDIvol: 53.2 mGy. DLP: 964 mGy-cm. mGy. LIMITATIONS: None. FINDINGS: VENTRICLES: Normal size and contour. CEREBRUM: No masses. No hemorrhage. No midline shift. No evidence for acute infarction. Normal gra y/white matter differentiation. No areas of low density in the white matter. CEREBELLUM: No masses. No hemorrhage. No alteration of density. No evidence for acute infarction. EXTRAAXIAL SPACES: No fluid collections. No masses. ORBITS AND GLOBE: No intra- or extraconal masses. Normal contour of globe without masses. CALVARIUM: No fracture. PARANASAL SINUSES: No fluid or mucosal thickening. SOFT TISSUES: No mass or hematoma. OTHER: No other significant finding. IMPRESSION: NORMAL BRAIN CT WITHOUT CONTRAST. EVIDENCE OF ACUTE STROKE: NO. COMMENT: Quality ID # 436: Final reports with documentation of one or more dose reduction techniques (e.g., Automated exposure control, adjustment of the mA and/or kV according to patient size, use of iterative reconstruction technique) TECHNICAL DOCUMENTATION: JOB ID: [id number] [employer]- All Rights Reserved Reading location - IP/workstation name: [email or web address]
--- NOTE | 2019-02-16 11:19 | RADIOLOGY REPORT (SQ) ---
EXAM DESCRIPTION: CT CERVICAL SPINE WITHOUT COMPLETED DATE/TIME: 02/16/2019 11:04 am REASON FOR STUDY: Seizure, Hx of, facial trauma, poorly responsive COMPARISON: None. TECHNIQUE: Axial images acquired through the cervical spine without intravenous contrast. Images re viewed with lung, soft tissue and bone windows. Reconstructed coronal and sagittal MPR images review ed. Images stored on PACS. All CT scanners at this facility use dose modulation, iterative reconstruction, and/or weight based d osing when appropriate to reduce radiation dose to as low as reasonably achievable (ALARA). [facility]: Dose Right [facility]: CareDose [facility]: Dose Right [facility]: Teradose 4D [facility]: [employer] RADIATION DOSE: CT Rad equipment meets quality standard of care and radiation dose reduction techniq ues were employed. CTDIvol: 22.8 mGy. DLP: 498 mGy-cm. mGy. LIMITATIONS: None. FINDINGS: ALIGNMENT: Anatomic. MINERALIZATION: Normal. VERTEBRAL BODIES: No fractures or dislocation. DISCS: No significant disc disease. FACETS, LATERAL MASSES, POSTERIOR ELEMENTS: No fractures. No dislocation. No acute findings. HARDWARE: None in the spine. VISUALIZED RIBS: No fractures. LUNG APICES AND SOFT TISSUES: No significant or acute findings. OTHER: No other significant finding. IMPRESSION: NO ACUTE OR SIGNIFICANT FINDINGS IN THE CERVICAL SPINE. TECHNICAL DOCUMENTATION: JOB ID: [id number] Quality ID # [id number]: Final reports with documentation of one or more dose reduction techniques (e.g., Au tomated exposure control, adjustment of the mA and/or kV according to patient size, use of iterative reconstruction technique) 2010 [employer]- All Rights Reserved Reading location - IP/workstation name: [email or web address]
--- NOTE | 2019-02-16 11:21 | RADIOLOGY REPORT (SQ) ---
EXAM DESCRIPTION: CT FACIAL AREA WITHOUT COMPLETED DATE/TIME: 02/16/2019 11:04 am REASON FOR STUDY: Seizure, history of, facial trauma COMPARISON: None. TECHNIQUE: Noncontrasted images through the facial bones and orbits windowed for bone and soft tissu e. Additional coronal and sagittal reconstructed images reviewed. All images stored on PACS. All CT scanners at this facility use dose modulation, iterative reconstruction, and/or weight based d osing when appropriate to reduce radiation dose to as low as reasonably achievable (ALARA). [facility]: Dose Right [facility]: CareDose [facility]: Dose Right [facility]: Teradose 4D [facility]: Smart [employer] RADIATION DOSE: CT Rad equipment meets quality standard of care and radiation dose reduction techniq ues were employed. CTDIvol: 30.4 mGy. DLP: 597 mGy-cm. mGy. LIMITATIONS: None. FINDINGS: FACIAL BONES: No fracture or bone lesion. ORBITS: Intact. No fracture. Symmetric intact globes and retroorbital soft tissues. PARANASAL SINUSES: Clear. No significant mucosal thickening, mass or fluid. No nasal polyps. Maxill cornelius sinus outlets are patent. SOFT TISSUES: No mass or edema. INFERIOR BRAIN: Limited view. No acute findings. OTHER: No other significant finding. IMPRESSION: NO ACUTE FINDINGS. TECHNICAL DOCUMENTATION: JOB ID: [id number] Quality ID # [id number]: Final reports with documentation of one or more dose reduction techniques (e.g., Au tomated exposure control, adjustment of the mA and/or kV according to patient size, use of iterative reconstruction technique) 2010 [employer]- All Rights Reserved Reading location - IP/workstation name: [email or web address]
--- NOTE | 2019-02-16 12:49 | PSYCHOLOGICAL NOTE ---
Psych Note - Psych Note Date seen by psych provider: 02/16/19 Time seen by psych provider: 12:40 - Discussion with Attending ED Physician at 1240. Chart review at 1245. Psych Note: Presenting Problem: OD Meth, family found this morning and patient had seizure sent text to mother that she tried to OD. ED Physician noted patient had another seizure in the ED this AM (started on Keppra). Observed patient sleeping and lethargic per attending medical staff. Patient was seen by [facility] 12/09/18 for SI, noted chronic passive SI, SIB (cutting, piercing, tattoos) with recent cut going up inner left wrist/arm area, reported Hx of PTSD and no prescribed medications, UDS at that time was positive for methamphetamine and cannabis, noted voluntary inpatient the past April, and was discharged with outpatient resources. She then presented 12/29/18 for OD of methamphetamine and having 4 seizures after, was medically admitted, at that time UDS was positive for benzodiazpeines/methamphetamine/cannabis, boyfriend noted she had injected methamphetamine before. Mother Yasmine Bull [phone]. May utilize for collateral at later time. Diagnosis: SI attempt via OD Meth Polysubstance Use and Hx Amphetamine/Methamphetamine Use Disorder, Severe Cannabis Use Disorder, Severe Cocaine use Disorder, Mild (12/29/18 UDS positive for) Depressive Disorder Impression/Plan: ED Physician requested IVC which was completed. Patient being admitted to ICU.
[2019-02-16] MEDS ORDERED: GLUCAGON,HUMAN RECOMB 1 MG INJ SUBCUT PRN (13:32)
[2019-02-16] MEDS ORDERED: ONDANSETRON HCL INJ/PF 4 MG/2 ML SDV IV PRN (13:32)
[2019-02-16] MEDS ORDERED: DEXTROSE 40% GEL 15 GM TUBE PO PRN ×2 (13:32)
[2019-02-16] MEDS ORDERED: ACETAMINOPHEN 325 MG TABLET PO PRN (13:32)
[2019-02-16] MEDS ORDERED: RINGERS SOLUTION,LACTATED 1,000 ML IV PRN (13:32)
[2019-02-16] MEDS ORDERED: DEXTROSE 50%-WATER 25 GM/50 ML DISP.SYRIN IV PRN ×2 (13:32)
[2019-02-16] MEDS ORDERED: LORAZEPAM INJ 2 MG/1 ML VIAL IV PRN (13:38)
--- NOTE | 2019-02-16 13:39 | EKG REPORT ---
SEVERITY:- BORDERLINE ECG - SINUS TACHYCARDIA BORDERLINE PROLONGED QT INTERVAL : Confirmed by: Melissa Callejas MD 16-Feb-2019 13:38:35
--- NOTE | 2019-02-16 16:23 | CRITICAL CARE ADMISSION REPORT ---
HPI Date:: 02/16/19 Reason for ICU Reason:: seizures, drug overdose, suicide attempt HPI: Pt is a 28 yo woman with PTSD, polysubstance abuse, meth abuse, OCD, bipolar, depression, anxiety who presented to the ED via EMS after having seizures due to taking an overdose of meth. Per report, she told her family that she was going to kill herself by taking an overdose of meth. She did this same thing 2 months ago. She has had a total of three witnessed seizures. In the ED, she got Ativan and IV keppra. - Diagnosis/Plan (1) Seizures Is this a current diagnosis for this admission?: Yes (2) Suicide attempt Is this a current diagnosis for this admission?: Yes (3) Methamphetamine abuse Is this a current diagnosis for this admission?: Yes Past Medical History Neurological Medical History: Reports: Migraine, Seizures - Patient had a seizure in December of this year and was admitted to this hospi Malignancy Medical History: Psychiatric Medical History: Reports: Bipolar Disorder, Depression, Post Traumatic Stress Disorder Past Surgical History Past Surgical History: Reports: Section - x3, Cholecystectomy, Tubal Ligation Denies: Hysterectomy Social/Family History - Social History Smoking Status: Unknown if Ever Smoked Frequency of Alcohol Use: None Hx Recreational Drug Use: Yes Drugs: Cocaine, Marijuana Hx Prescription Drug Abuse: No - Medication/Allergies Home Medications: No Home Medications 12/29/18 Allergies/Adverse Reactions: No Known Allergies Allergy (Verified 12/04/18 14:27) Review of Systems ROS unobtainable: Due to mental status Physical Exam Vital Signs: Temp Pulse Resp BP Pulse Ox 28 H 114/84 98 02/16/19 11:38 02/16/19 11:39 02/16/19 11:39 Intake & Output 02/15/19 02/16/19 02/17/19 06:59 06:59 06:59 Intake Total 100 Balance 100 Weight 98.1 kg Weight/Height Weight 98.1 kg General appearance: PRESENT: no acute distress, well-developed, well-nourished Head exam: PRESENT: normocephalic Respiratory exam: PRESENT: clear to auscultation cami, unlabored Cardiovascular exam: PRESENT: RRR GI/Abdominal exam: PRESENT: soft Neurological exam: PRESENT: other - post-ictal Laboratory/Radiographs Laboratory Results: 02/16/19 09:33 02/16/19 09:33 02/16/19 02/16/19 02/16/19 09:33 09:33 09:33 WBC 12.3 H RBC 4.46 Hgb 12.3 Hct 37.6 MCV 84 MCH 27.6 MCHC 32.7 RDW 14.4 H Plt Count 327 Seg Neutrophils % 89.7 H Sodium 142.6 Potassium 3.9 Chloride 104 Carbon Dioxide 17 L Anion Gap 22 H BUN 9 Creatinine 0.60 Est GFR ( Amer) > 60 Glucose 139 H Calcium 9.6 Magnesium 2.3 Total Bilirubin 0.3 AST 36 Alkaline Phosphatase 74 Total Protein 8.2 Albumin 4.4 Serum HCG, Qual NEGATIVE Urine Color Urine Appearance Urine pH Ur Specific [place] Urine Protein Urine Glucose (UA) Urine Ketones Urine Blood Urine Nitrite Ur Leukocyte Esterase Urine WBC (Auto) Urine RBC (Auto) 02/16/19 09:52 WBC RBC Hgb Hct MCV MCH MCHC RDW Plt Count Seg Neutrophils % Sodium Potassium Chloride Carbon Dioxide Anion Gap BUN Creatinine Est GFR ( Amer) Glucose Calcium Magnesium Total Bilirubin AST Alkaline Phosphatase Total Protein Albumin Serum HCG, Qual Urine Color YELLOW Urine Appearance CLEAR Urine pH 5.0 Ur Specific [place] 1.019 Urine Protein 30 H Urine Glucose (UA) NEGATIVE Urine Ketones NEGATIVE Urine Blood NEGATIVE Urine Nitrite NEGATIVE Ur Leukocyte Esterase NEGATIVE Urine WBC (Auto) 3 Urine RBC (Auto) 1 Impressions: Chest X-Ray 02/16/19 10:22 IMPRESSION: Borderline cardiomegaly without pulmonary edema. Head CT 02/16/19 10:23 IMPRESSION: NORMAL BRAIN CT WITHOUT CONTRAST. EVIDENCE OF ACUTE STROKE: NO. Facial Bones CT 02/16/19 10:46 IMPRESSION: NO ACUTE FINDINGS. Cervical Spine CT 02/16/19 10:47 IMPRESSION: NO ACUTE OR SIGNIFICANT FINDINGS IN THE CERVICAL SPINE. Critical Time Critical Time (minutes): 35 -: The care of a critically ill patient is dynamic. This note represents a static moment in the admission process. orders and treatments may be given simulataneously and urgentl, and time is not sales representative of the treatment process. This patient requires Critical Care secondary to life threating organ or limb dysfunction. Without the need for Critical Care services, the patient is at risk for increasid mortality and morbidity. Provider Note Provider Note: Assessment: Critically ill 28 yo woman s/p multiple seizures due to intentional drug overdose with methamphetamine. Plan: 1. Resp: stable on nasal cannula. Nasal trumpet is in place.. Monitor resp status closely 2. CV: heart rate and BP stable 3. Neuro: seizures due to overdose with meth. Imaging studies negative. Continue keppra and prn ativan. EEG 4. Psych: Intentional drug overdose with meth, suicide attempt. Polysubstance abuse. h/o Depression, anxiety, OCD, PTSD. Evaluated by psychiatry in ED and pt has been involuntarily committed. Suicide precautions 5. Nutrition: NPO 6. Endocrine: accuchecks,SSI 7.Prophylaxis: lovenox
[2019-02-16] MEDS: INSULIN REG, HUMAN 100 UNIT/ML 3 ML VIAL (PYX) SUBCUT SCH (17:58)
[2019-02-16] MEDS: LEVETIRACETAM 1000 MG/NACL-ISO 1,000 MG/100 ML RTUPB IV SCH (21:59)
[2019-02-16] MEDS ORDERED: LEVETIRACETAM 1,000 MG in NORMAL SALINE 100 ML IV SCH (22:00)
[2019-02-17] MEDS: INSULIN REG, HUMAN 100 UNIT/ML 3 ML VIAL (PYX) SUBCUT SCH ×2 (00:14→05:13)
[2019-02-17 04:18] LABS: HEMOGLOBIN 11.4 g/dL (12.0-15.5); MEAN CORPUSCULAR HGB CONC 32.7 g/dL (32.0-36.0); MEAN CORPUSCULAR VOLUME 83 fl (80-97); PLATELET COUNT 324 10^3/uL (150-450); RED BLOOD COUNT 4.23 10^6/uL (3.72-5.28); RED CELL DISTRIBUTION WIDTH 14.4 % (11.5-14.0); WHITE BLOOD COUNT 20.6 10^3/uL (4.0-10.5)
[2019-02-17 04:39] LABS: ANION GAP 15 (5-19); BLOOD UREA NITROGEN 9 mg/dL (7-20); CALCIUM 9.5 mg/dL (8.4-10.2); CARBON DIOXIDE 24 mmol/L (22-30); CHLORIDE 106 mmol/L (98-107); GLUCOSE 113 mg/dL (75-110); POTASSIUM 3.3 mmol/L (3.6-5.0)
[2019-02-17] MEDS ORDERED: POTASSIUM CHLORIDE 10 MEQ CAPSULE.ER PO ONE (08:00)
[2019-02-17] MEDS ORDERED: INFLUENZA QUAD (6MOS+) 2019-20 VAC 0.5 ML SYR IM ONE (08:00)
--- NOTE | 2019-02-17 08:40 | PDOC PROGRESS REPORT ---
Subjective Progress Note for:: 02/17/19 Subjective:: ICU Progress Note Pt is awake and alert. Sitter at bedside. No seizures overnight. Pt currently denying any drug use. Reason For Visit: SEIZURES,OVERDOSE METHAMPHETAMINE,SUICIDAL Physical Exam Vital Signs: Temp Pulse Resp BP Pulse Ox 99.5 F 111 H 18 119/82 96 02/17/19 05:07 02/16/19 20:00 02/17/19 06:00 02/17/19 05:40 02/17/19 06:00 Intake & Output 02/16/19 02/17/19 02/18/19 06:59 06:59 06:59 Intake Total 200 1000 Output Total 1055 Balance -855 1000 Weight 103.5 kg General appearance: PRESENT: no acute distress, well-developed, well-nourished Head exam: PRESENT: atraumatic, normocephalic Respiratory exam: PRESENT: clear to auscultation cami, unlabored Cardiovascular exam: PRESENT: RRR GI/Abdominal exam: PRESENT: soft Gentrourinary exam: PRESENT: indwelling catheter Extremities exam: PRESENT: other - no edema Neurological exam: PRESENT: alert, awake Results Laboratory Results: 02/17/19 03:54 02/17/19 03:54 02/16/19 02/16/19 02/16/19 09:33 09:33 09:33 WBC 12.3 H RBC 4.46 Hgb 12.3 Hct 37.6 MCV 84 MCH 27.6 MCHC 32.7 RDW 14.4 H Plt Count 327 Seg Neutrophils % 89.7 H Sodium 142.6 Potassium 3.9 Chloride 104 Carbon Dioxide 17 L Anion Gap 22 H BUN 9 Creatinine 0.60 Est GFR ( Amer) > 60 Glucose 139 H Calcium 9.6 Magnesium 2.3 Total Bilirubin 0.3 AST 36 Alkaline Phosphatase 74 Total Protein 8.2 Albumin 4.4 Serum HCG, Qual NEGATIVE Urine Color Urine Appearance Urine pH Ur Specific [place] Urine Protein Urine Glucose (UA) Urine Ketones Urine Blood Urine Nitrite Ur Leukocyte Esterase Urine WBC (Auto) Urine RBC (Auto) 02/16/19 02/17/19 02/17/19 09:52 03:54 03:54 WBC 20.6 H RBC 4.23 Hgb 11.4 L Hct 35.0 L MCV 83 MCH 27.0 MCHC 32.7 RDW 14.4 H Plt Count 324 Seg Neutrophils % Sodium 144.6 Potassium 3.3 L Chloride 106 Carbon Dioxide 24 Anion Gap 15 BUN 9 Creatinine 0.76 Est GFR ( Amer) > 60 Glucose 113 H Calcium 9.5 Magnesium Total Bilirubin AST Alkaline Phosphatase Total Protein Albumin Serum HCG, Qual Urine Color YELLOW Urine Appearance CLEAR Urine pH 5.0 Ur Specific [place] 1.019 Urine Protein 30 H Urine Glucose (UA) NEGATIVE Urine Ketones NEGATIVE Urine Blood NEGATIVE Urine Nitrite NEGATIVE Ur Leukocyte Esterase NEGATIVE Urine WBC (Auto) 3 Urine RBC (Auto) 1 Impressions: Head CT 02/16/19 10:23 IMPRESSION: NORMAL BRAIN CT WITHOUT CONTRAST. EVIDENCE OF ACUTE STROKE: NO. Facial Bones CT 02/16/19 10:46 IMPRESSION: NO ACUTE FINDINGS. Cervical Spine CT 02/16/19 10:47 IMPRESSION: NO ACUTE OR SIGNIFICANT FINDINGS IN THE CERVICAL SPINE. Assessment & Plan - Diagnosis (1) Seizures Is this a current diagnosis for this admission?: Yes (2) Suicide attempt Is this a current diagnosis for this admission?: Yes (3) Methamphetamine abuse Is this a current diagnosis for this admission?: Yes (5) Leukocytosis Qualifiers: Leukocytosis type: unspecified Qualified Code(s): D72.829 - Elevated white blood cell count, unspecified Is this a current diagnosis for this admission?: Yes - Time Time Spent with patient: 15-24 minutes Medications reviewed and adjusted accordingly: No Anticipated discharge: Other Within: Other Provider Note Provider Note: Assessment: 28 yo woman s/p multiple seizures due to intentional drug overdose with methamphetamine. Plan: 1. Resp: stable on room air 2. Pulmonary: possible aspiration PNA. WBC elevated. CXR ordered. Will start Unasyn 2. CV: heart rate and BP stable 3. Neuro: seizures due to overdose with meth. Imaging studies negative. Continue keppra and prn ativan. EEG. 4. Psych: Intentional drug overdose with meth, suicide attempt. Polysubstance abuse. h/o Depression, anxiety, OCD, PTSD. Evaluated by psychiatry in ED and pt has been involuntarily committed. Suicide precautions 5. ID: leukocytosis. Possible aspiration. CXR pending. Blood cultures pending. Will start Unasyn 6. Nutrition:NPO 7. Endocrine: accuchecks,SSI 8.Prophylaxis: lovenox 9. Stable for transfer out of ICU.
--- NOTE | 2019-02-17 09:51 | RADIOLOGY REPORT (SQ) ---
EXAM DESCRIPTION: CHEST SINGLE VIEW COMPLETED DATE/TIME: 02/17/2019 9:09 am REASON FOR STUDY: leukocystosis, aspiration COMPARISON: 02/16/2019. EXAM PARAMETERS: NUMBER OF VIEWS: One view. TECHNIQUE: Single frontal radiographic view of the chest acquired. RADIATION DOSE: NA LIMITATIONS: None. FINDINGS: LUNGS AND PLEURA: No opacities, masses or pneumothorax. No pleural effusion. MEDIASTINUM AND HILAR STRUCTURES: No masses. Contour normal. HEART AND VASCULAR STRUCTURES: Heart normal in size. Normal vasculature. BONES: No acute findings. HARDWARE: None in the chest. OTHER: No other significant finding. IMPRESSION: NO ACUTE RADIOGRAPHIC FINDING IN THE CHEST. TECHNICAL DOCUMENTATION: JOB ID: [id number] [employer]- All Rights Reserved Reading location - IP/workstation name: [email or web address]
[2019-02-17] MEDS: AMPICILLIN SODIUM/SULBACTAM NA 1.5 GM in NORMAL SALINE 50 ML IV SCH ×5 (10:37→23:15)
[2019-02-17] MEDS: LEVETIRACETAM 1000 MG/NACL-ISO 1,000 MG/100 ML RTUPB IV SCH (10:59)
[2019-02-17] MEDS: ENOXAPARIN SODIUM INJ 40 MG/0.4 ML DISP.SYRIN SUBCUT SCH (11:01)
[2019-02-17] MEDS ORDERED: AMPICILLIN SODIUM/SULBACTAM NA 1.5 GM in NORMAL SALINE 50 ML IV SCH (12:00)
--- NOTE | 2019-02-17 14:50 | Progress Note ---
Provider Note Provider Note: Pt is medically cleared for transfer to an in psychiatric facility.
--- NOTE | 2019-02-17 15:40 | PSYCHOLOGICAL NOTE ---
Psych Note - Psych Note Date seen by psych provider: 02/17/19 Time seen by psych provider: 14:40 - Chart review at 1440. Spoke to Hospitalist at 1446. Evaluation at 1500. Psych Note: Presenting Problem: IVC, OD Methamphetamine to extent admitted to ICU/had 2 seizures, sent text to mother that she tried to OD, OD December 2018 which resulted in inpatient medical stay/she had 4 seizures after this previous OD, UDS positive for Amphetamine and Cannabis. Overnight documentation indicated patient was labile, agitated, has psychosis likely from being under the influence and then sobering up. Today's progress note stated patient was awake, alert, oriented, denied SA and SI attempt and did not have any seizures (being administered Keppra). Today she admitted to OD when younger. When asked if this was SI attempt she commented "yes, I think, I'm not sure." When asked if she remembered she stated "not really." Attending Hospitalist noted patient was medically cleared. Diagnosis: Polysubstance Use and Hx Amphetamine/Methamphetamine Use Disorder, Severe Cannabis Use Disorder, Severe Cocaine use Disorder, Mild (12/29/18 UDS positive for) Depressive Disorder Impression/Plan: Recommendation to maintain IVC and seek inpatient h ospitalization. Patient presented for OD of Methamphetamine, had 2 seizures after (started on Keppra while in ED which has been maintained), mother noted patient sent SI text, patient seen in ED previously for passive SI/PTSD Hx and not on medication, patient admitted medically in 12/2018 for methamphetamine OD and [address] Evans regarding the management and care of patient. Attending Hospitalist aware of recommendations.
[2019-02-17] MEDS: LEVETIRACETAM 500 MG TABLET PO SCH (23:12)
[2019-02-18] MEDS: AMPICILLIN SODIUM/SULBACTAM NA 1.5 GM in NORMAL SALINE 50 ML IV SCH ×4 (06:42→23:04)
[2019-02-18 07:55] LABS: ABSOLUTE BASOPHILS # (AUTO) 0.1 10^3/uL (0.0-0.2); ABSOLUTE LYMPHOCYTES (AUTO) 2.1 10^3/uL (0.5-4.7); ABSOLUTE MONOCYTES (AUTO) 0.9 10^3/uL (0.1-1.4); ABSOLUTE NEUT (AUTO) 5.7 10^3/uL (1.7-8.2); EOSINOPHILS % (AUTO) 0.5 % (0-6); HEMATOCRIT 33.8 % (36.0-47.0); HEMOGLOBIN 11.3 g/dL (12.0-15.5); LYMPHOCYTES % (AUTO) 23.4 % (13-45); MEAN CORPUSCULAR HEMOGLOBIN 27.5 pg (27.0-33.4); MEAN CORPUSCULAR HGB CONC 33.5 g/dL (32.0-36.0); MEAN CORPUSCULAR VOLUME 82 fl (80-97); MONOCYTES % (AUTO) 9.9 % (3-13); PLATELET COUNT 264 10^3/uL (150-450); RED BLOOD COUNT 4.12 10^6/uL (3.72-5.28); RED CELL DISTRIBUTION WIDTH 14.2 % (11.5-14.0); SEGMENTED NEUTROPHILS % (AUTO) 65.2 % (42-78); TOTAL CELLS COUNTED % (AUTO) 100 %; WHITE BLOOD COUNT 8.8 10^3/uL (4.0-10.5)
[2019-02-18 08:11] LABS: ANION GAP 8 (5-19); BLOOD UREA NITROGEN 5 mg/dL (7-20); CALCIUM 9.4 mg/dL (8.4-10.2); CARBON DIOXIDE 30 mmol/L (22-30); CHLORIDE 101 mmol/L (98-107); GLUCOSE 101 mg/dL (75-110); POTASSIUM 3.4 mmol/L (3.6-5.0)
[2019-02-18] MEDS ORDERED: POTASSIUM CHLORIDE 10 MEQ CAPSULE.ER PO ONE (08:50)
--- NOTE | 2019-02-18 08:50 | PDOC PROGRESS REPORT ---
Subjective Progress Note for:: 02/18/19 Subjective:: ICU progress note. Pt remains on IVC status. Awaiting transfer out of ICU No further seizures. Reason For Visit: SEIZURES, DRUG OVERDOSE, SUICIDE ATTEMPT Physical Exam Vital Signs: Temp Pulse Resp BP Pulse Ox 98.6 F 77 16 96/81 L 97 02/18/19 07:51 02/18/19 07:51 02/18/19 07:51 02/18/19 07:51 02/18/19 07:51 Intake & Output 02/17/19 02/18/19 02/19/19 06:59 06:59 06:59 Intake Total 200 2750 Output Total 1055 1800 Balance -855 950 Weight 103.5 kg 104.6 kg General appearance: PRESENT: no acute distress, well-developed, well-nourished Head exam: PRESENT: atraumatic, normocephalic Respiratory exam: PRESENT: clear to auscultation cami, unlabored Cardiovascular exam: PRESENT: RRR GI/Abdominal exam: PRESENT: soft Musculoskeletal exam: PRESENT: normal inspection Results Laboratory Results: 02/18/19 07:39 02/18/19 07:39 02/18/19 02/18/19 07:39 07:39 WBC 8.8 RBC 4.12 Hgb 11.3 L Hct 33.8 L MCV 82 MCH 27.5 MCHC 33.5 RDW 14.2 H Plt Count 264 Seg Neutrophils % 65.2 Sodium 138.9 Potassium 3.4 L Chloride 101 Carbon Dioxide 30 Anion Gap 8 BUN 5 L Creatinine 0.56 Est GFR ( Amer) > 60 Glucose 101 Calcium 9.4 Impressions: Head CT 02/16/19 10:23 IMPRESSION: NORMAL BRAIN CT WITHOUT CONTRAST. EVIDENCE OF ACUTE STROKE: NO. Facial Bones CT 02/16/19 10:46 IMPRESSION: NO ACUTE FINDINGS. Cervical Spine CT 02/16/19 10:47 IMPRESSION: NO ACUTE OR SIGNIFICANT FINDINGS IN THE CERVICAL SPINE. Chest X-Ray 02/17/19 07:37 IMPRESSION: NO ACUTE RADIOGRAPHIC FINDING IN THE CHEST. Assessment & Plan - Diagnosis (1) Seizures Is this a current diagnosis for this admission?: Yes (2) Suicide attempt Is this a current diagnosis for this admission?: Yes (3) Methamphetamine abuse Is this a current diagnosis for this admission?: Yes - Time Time Spent with patient: 15-24 minutes - Plan Summary Plan Summary: Assessment: 28 yo woman s/p multiple seizures due to intentional drug overdose with methamphetamine. Plan: 1. Resp: stable on room air 2. Pulmonary: aspiration PNA, less likely. Probably mild aspiration pneumonitis which has resolved. WBC normal. Day 2 Unasyn. 2. CV: heart rate and BP stable 3. Neuro: seizures due to overdose with meth. Imaging studies negative. Continue keppra and prn ativan. No further seizures 4. Psych: Intentional drug overdose with meth, suicide attempt. Polysubstance abuse. h/o Depression, anxiety, OCD, PTSD. Evaluated by psychiatry in ED and pt has been involuntarily committed. Suicide precautions 5. ID: leukocytosis,resolved. Possible aspiration. CXR negative. Blood cultures pending. Day 2 Unasyn 6. Nutrition:regualar diet 7. Endocrine: accuchecks,SSI 8.Prophylaxis: lovenox 9. Stable for transfer out of ICU. Medically cleared for transfer to inpt psych facility.
[2019-02-18 10:29] LABS: A TYPE INFLUENZA AG NEGATIVE (NEGATIVE)
[2019-02-18 10:30] LABS: B INFLUENZA AG NEGATIVE (NEGATIVE)
[2019-02-18] MEDS: ENOXAPARIN SODIUM INJ 40 MG/0.4 ML DISP.SYRIN SUBCUT SCH (11:20)
[2019-02-18] MEDS: LEVETIRACETAM 500 MG TABLET PO SCH ×2 (11:20→21:14)
--- NOTE | 2019-02-18 16:09 | PSYCHOLOGICAL NOTE ---
Psych Note - Psych Note Date seen by psych provider: 02/18/19 Psych Note: Reason for Consult: Intentional overdose on Methamphetamine Diagnosis: Polysubstance Use and Hx Amphetamine/Methamphetamine Use Disorder, Severe Cannabis Use Disorder, Severe Cocaine use Disorder, Mild (12/29/18 UDS positive for) Depressive Disorder Medication recommendations per [facility]'s contracted psychiatrist Dr. Linus GUTIERREZ are as follows Effexor 37.5 mg daily Buspar 5mg twice daily Impression/Plan: Recommendation to maintain IVC. Patient presented for OD of Methamphetamine, had 2 seizures after (started on Keppra while in ED which has been maintained), mother noted patient sent SI text, patient seen in ED previously for passive SI/PTSD Hx and not on medication, patient admitted medically in 12/2018 for methamphetamine OD and 4 seizures (was not seen by Behavioral health during that visit). Patient referral has been submitted to multiple area facilities (please see mental health ED note). Patient will be reevaluated. Dr. Evans was consulted in the care management this patient; tending physicians in agreement with recommendations and disposition.
--- NOTE | 2019-02-18 17:46 | PDOC CONSULTATION ---
Consultation Consult Date: 02/18/19 Attending physician:: PEPE KHOURY Provider Consulted: CARLY CRUZ Consult reason:: Medical Managment History of Present Illness Admission Date/PCP: 02/16/19 12:43 Patient complains of: None at this time History of Present Illness: URBAN MEJIA is a 28 year old female who presented to the ER on 02/16/2019 with polysubstance abuse, meth abuse, OCD, bipolar rhythm, anxiety after overdosing on methamphetamine and having seizure. Patient reported that she been trying to kill herself by taking his overdose of meth phentermine. She did same thing 2 months ago. She has been downgraded from the ICU to medical floor and we were asked to consult for further management. Past Medical History Neurological Medical History: Reports: Migraine, Seizures - Patient had a seizure in December of this year and was admitted to this hospi Malignancy Medical History: Psychiatric Medical History: Reports: Bipolar Disorder, Depression, Post T raumatic Stress Disorder Past Surgical History Past Surgical History: Reports: Section - x3, Cholecystectomy, Tubal Ligation Denies: Hysterectomy Social History Information Source: Patient Lives with: Family Smoking Status: Unknown if Ever Smoked Electronic Cigarette use?: No Frequency of Alcohol Use: None Hx Recreational Drug Use: Yes Drugs: Cocaine, Marijuana, Other - Methamphetamine Hx Prescription Drug Abuse: No - Advance Directive Resuscitation Status: Full Code Family History Family History: Arthritis, CVA, DM, Hypertension, Malignancy, Thyroid Disfunction, Other - Grandmother with PE, diabetes, hypertension. Mother with gallbladder disease, diabetes, hypertension, asthma, obstructive sleep apnea, cardiac hypertrophy. PGM breast cancer. Mom with "possible ovarian cancer" Parental Family History Reviewed: Yes Children Family History Reviewed: Yes Sibling(s) Family History Reviewed.: Yes Medication/Allergy Home Medications: No Home Medications 12/29/18 Allergies/Adverse Reactions: No Known Allergies Allergy (Verified 12/04/18 14:27) Review of Systems Constitutional: ABSENT: chills, fever(s), headache(s), weight gain, weight loss Eyes: ABSENT: visual disturbances Ears: ABSENT: hearing changes Cardiovascular: ABSENT: chest pain, dyspnea on exertion, edema, orthropnea, palpitations Respiratory: ABSENT: cough, hemoptysis Gastrointestinal: ABSENT: abdominal pain, constipation, diarrhea, hematemesis, hematochezia, nausea, vomiting Genitourinary: ABSENT: dysuria, hematuria Musculoskeletal: ABSENT: joint swelling Integumentary: ABSENT: rash, wounds Neurological: ABSENT: abnormal gait, abnormal speech, confusion, dizziness, focal weakness, syncope Psychiatric: PRESENT: suicidal ideation. ABSENT: anxiety, depression, homidical ideation Endocrine: ABSENT: cold intolerance, heat intolerance, polydipsia, polyuria Hematologic/Lymphatic: ABSENT: easy bleeding, easy bruising Physical Exam Vital Signs: Temp Pulse Resp BP Pulse Ox 98.6 F 77 17 96/81 L 97 02/18/19 07:51 02/18/19 07:51 02/18/19 08:00 02/18/19 07:51 02/18/19 07:51 Intake & Output 02/17/19 02/18/19 02/19/19 06:59 06:59 06:59 Intake Total 200 2750 100 Output Total 1055 1800 Balance -855 950 100 Weight 103.5 kg 104.6 kg General appearance: PRESENT: no acute distress, well-developed, well-nourished Head exam: PRESENT: atraumatic, normocephalic Eye exam: PRESENT: conjunctiva pink, EOMI, PERRLA. ABSENT: scleral icterus Ear exam: PRESENT: normal external ear exam Mouth exam: PRESENT: moist, tongue midline Neck exam: ABSENT: carotid bruit, JVD, lymphadenopathy, thyromegaly Respiratory exam: PRESENT: clear to auscultation cami. ABSENT: rales, rhonchi, wheezes Cardiovascular exam: PRESENT: RRR. ABSENT: diastolic murmur, rubs, systolic murmur Pulses: PRESENT: normal dorsalis pedis pul Vascular exam: PRESENT: normal capillary refill GI/Abdominal exam: PRESENT: normal bowel sounds, soft. ABSENT: distended, guarding, mass, organolmegaly, rebound, tenderness Rectal exam: PRESENT: deferred Extremities exam: PRESENT: full ROM. ABSENT: calf tenderness, clubbing, pedal edema Neurological exam: PRESENT: alert, awake, oriented to person, oriented to place, oriented to time, oriented to situation, CN II-XII grossly intact. ABSENT: motor sensory deficit Psychiatric exam: PRESENT: appropriate affect, normal mood. ABSENT: homicidal ideation, suicidal ideation Skin exam: PRESENT: dry, intact, warm. ABSENT: cyanosis, rash Results Laboratory Results: 02/18/19 07:39 02/18/19 07:39 02/18/19 02/18/19 07:39 07:39 WBC 8.8 RBC 4.12 Hgb 11.3 L Hct 33.8 L MCV 82 MCH 27.5 MCHC 33.5 RDW 14.2 H Plt Count 264 Seg Neutrophils % 65.2 Sodium 138.9 Potassium 3.4 L Chloride 101 Carbon Dioxide 30 Anion Gap 8 BUN 5 L Creatinine 0.56 Est GFR ( Amer) > 60 Glucose 101 Calcium 9.4 Impressions: Head CT 02/16/19 10:23 IMPRESSION: NORMAL BRAIN CT WITHOUT CONTRAST. EVIDENCE OF ACUTE STROKE: NO. Facial Bones CT 02/16/19 10:46 IMPRESSION: NO ACUTE FINDINGS. Cervical Spine CT 02/16/19 10:47 IMPRESSION: NO ACUTE OR SIGNIFICANT FINDINGS IN THE CERVICAL SPINE. Chest X-Ray 02/17/19 07:37 IMPRESSION: NO ACUTE RADIOGRAPHIC FINDING IN THE CHEST. Assessment and Plan - Plan Summary Summary: 02/18/2019- Seizures-no further seizure activity at this time. Patient continued on Keppra 1000 mg p.o. twice daily and PRN Ativan. Suicidal ideation-patient continues on IVC. Will await further recognitions per psychiatry Methamphetamine abuse-continue to educate about the negative effects of methamphetamine abuse - Time Time Spent with patient: 25-34 minutes - Inpatient Certification Based on my medical assessment, after consideration of the patient's comorbid ities, presenting symptoms, or acuity I expect that the services needed warrant INPATIENT care.: Yes I certify that my determination is in accordance with my understanding of Medicare's requirements for reasonable and necessary INPATIENT services [42 CFR 412.3e].: Yes Medical Necessity: Other - Psychiatric evaluation
[2019-02-19 05:23] LABS: ABSOLUTE BASOPHILS # (AUTO) 0.1 10^3/uL (0.0-0.2); ABSOLUTE EOSINOPHILS # (AUTO) 0.1 10^3/uL (0.0-0.6); ABSOLUTE LYMPHOCYTES (AUTO) 2.5 10^3/uL (0.5-4.7); ABSOLUTE MONOCYTES (AUTO) 0.6 10^3/uL (0.1-1.4); ABSOLUTE NEUT (AUTO) 2.7 10^3/uL (1.7-8.2); BASOPHILS % (AUTO) 1.1 % (0-2); HEMATOCRIT 34.7 % (36.0-47.0); HEMOGLOBIN 11.5 g/dL (12.0-15.5); LYMPHOCYTES % (AUTO) 41.4 % (13-45); MEAN CORPUSCULAR HEMOGLOBIN 26.9 pg (27.0-33.4); MEAN CORPUSCULAR VOLUME 82 fl (80-97); MONOCYTES % (AUTO) 10.3 % (3-13); PLATELET COUNT 277 10^3/uL (150-450); RED BLOOD COUNT 4.26 10^6/uL (3.72-5.28); RED CELL DISTRIBUTION WIDTH 13.9 % (11.5-14.0); SEGMENTED NEUTROPHILS % (AUTO) 45.2 % (42-78); TOTAL CELLS COUNTED % (AUTO) 100 %
[2019-02-19] MEDS: AMPICILLIN SODIUM/SULBACTAM NA 1.5 GM in NORMAL SALINE 50 ML IV SCH ×4 (05:29→23:40)
[2019-02-19 05:43] LABS: ANION GAP 8 (5-19); BLOOD UREA NITROGEN 9 mg/dL (7-20); CALCIUM 9.6 mg/dL (8.4-10.2); CARBON DIOXIDE 33 mmol/L (22-30); CHLORIDE 99 mmol/L (98-107); GLUCOSE 94 mg/dL (75-110); POTASSIUM 3.7 mmol/L (3.6-5.0)
--- NOTE | 2019-02-19 08:54 | PDOC PROGRESS REPORT ---
Subjective Progress Note for:: 02/19/19 Subjective:: 02/19/2019-no complaints this a.m. Reason For Visit: SEIZURES, DRUG OVERDOSE, SUICIDE ATTEMPT Physical Exam Vital Signs: Temp Pulse Resp BP Pulse Ox 98.1 F 73 17 115/75 99 02/19/19 00:00 02/19/19 00:00 02/19/19 00:00 02/19/19 00:00 02/19/19 00:00 Intake & Output 02/18/19 02/19/19 02/20/19 06:59 06:59 06:59 Intake Total 2750 250 Output Total 1800 Balance 950 250 Weight 104.6 kg 103.4 kg General appearance: PRESENT: no acute distress, well-developed, well-nourished Head exam: PRESENT: atraumatic, normocephalic Eye exam: PRESENT: conjunctiva pink, EOMI, PERRLA. ABSENT: scleral icterus Ear exam: PRESENT: normal external ear exam Mouth exam: PRESENT: moist, tongue midline Neck exam: ABSENT: carotid bruit, JVD, lymphadenopathy, thyromegaly Respiratory exam: PRESENT: clear to auscultation cami. ABSENT: rales, rhonchi, wheezes Cardiovascular exam: PRESENT: RRR. ABSENT: diastolic murmur, rubs, systolic murmur Pulses: PRESENT: normal dorsalis pedis pul Vascular exam: PRESENT: normal capillary refill GI/Abdominal exam: PRESENT: normal bowel sounds, soft. ABSENT: distended, guarding, mass, organolmegaly, rebound, tenderness Rectal exam: PRESENT: deferred Extremities exam: PRESENT: full ROM. ABSENT: calf tenderness, clubbing, pedal edema Neurological exam: PRESENT: alert, awake, oriented to person, oriented to place, oriented to time, oriented to situation, CN II-XII grossly intact. ABSENT: motor sensory deficit Psychiatric exam: PRESENT: appropriate affect, normal mood. ABSENT: homicidal ideation, suicidal ideation Skin exam: PRESENT: dry, intact, warm. ABSENT: cyanosis, rash Results Laboratory Results: 02/19/19 05:00 02/19/19 05:00 02/19/19 02/19/19 05:00 05:00 WBC 6.0 RBC 4.26 Hgb 11.5 L Hct 34.7 L MCV 82 MCH 26.9 L MCHC 33.0 RDW 13.9 Plt Count 277 Seg Neutrophils % 45.2 Sodium 139.9 Potassium 3.7 Chloride 99 Carbon Dioxide 33 H Anion Gap 8 BUN 9 Creatinine 0.60 Est GFR ( Amer) > 60 Glucose 94 Calcium 9.6 Impressions: Head CT 02/16/19 10:23 IMPRESSION: NORMAL BRAIN CT WITHOUT CONTRAST. EVIDENCE OF ACUTE STROKE: NO. Facial Bones CT 02/16/19 10:46 IMPRESSION: NO ACUTE FINDINGS. Cervical Spine CT 02/16/19 10:47 IMPRESSION: NO ACUTE OR SIGNIFICANT FINDINGS IN THE CERVICAL SPINE. Chest X-Ray 02/17/19 07:37 IMPRESSION: NO ACUTE RADIOGRAPHIC FINDING IN THE CHEST. Assessment and Plan - Plan Summary Summary: 02/18/2019- Seizures-no further seizure activity at this time. Patient continued on Keppra 1000 mg p.o. twice daily and PRN Ativan. Suicidal ideation-patient continues on IVC. Will await further recognitions per psychiatry Methamphetamine abuse-continue to educate about the negative effects of methamphetamine abuse 02/19/2019- Seizures-no further activity. Continue Keppra Suicidal ideation-continues patient on IVC. Await recommendations per psychiatry Methamphetamine abuse. Continue to educate about negative effects.
[2019-02-19] MEDS: LEVETIRACETAM 500 MG TABLET PO SCH ×2 (10:31→23:41)
[2019-02-19] MEDS: ENOXAPARIN SODIUM INJ 40 MG/0.4 ML DISP.SYRIN SUBCUT SCH (10:32)
[2019-02-19] MEDS: BUSPIRONE HCL 10 MG TABLET PO SCH ×2 (11:56→23:41)
[2019-02-19] MEDS: VENLAFAXINE HCL 37.5 MG CAP.SR.24H PO SCH (12:00)
[2019-02-20 02:42] VITALS: BP 110/60
[2019-02-20 04:52] LABS: ABSOLUTE BASOPHILS # (AUTO) 0.1 10^3/uL (0.0-0.2); ABSOLUTE EOSINOPHILS # (AUTO) 0.2 10^3/uL (0.0-0.6); ABSOLUTE LYMPHOCYTES (AUTO) 2.7 10^3/uL (0.5-4.7); ABSOLUTE MONOCYTES (AUTO) 0.6 10^3/uL (0.1-1.4); ABSOLUTE NEUT (AUTO) 2.9 10^3/uL (1.7-8.2); EOSINOPHILS % (AUTO) 3.3 % (0-6); HEMATOCRIT 36.4 % (36.0-47.0); HEMOGLOBIN 12.1 g/dL (12.0-15.5); LYMPHOCYTES % (AUTO) 41.5 % (13-45); MEAN CORPUSCULAR HEMOGLOBIN 27.3 pg (27.0-33.4); MEAN CORPUSCULAR HGB CONC 33.4 g/dL (32.0-36.0); MEAN CORPUSCULAR VOLUME 82 fl (80-97); MONOCYTES % (AUTO) 9.2 % (3-13); PLATELET COUNT 292 10^3/uL (150-450); RED BLOOD COUNT 4.45 10^6/uL (3.72-5.28); TOTAL CELLS COUNTED % (AUTO) 100 %; WHITE BLOOD COUNT 6.5 10^3/uL (4.0-10.5)
[2019-02-20 05:10] LABS: ANION GAP 10 (5-19); BLOOD UREA NITROGEN 12 mg/dL (7-20); CALCIUM 9.9 mg/dL (8.4-10.2); CARBON DIOXIDE 33 mmol/L (22-30); CHLORIDE 96 mmol/L (98-107); GLUCOSE 95 mg/dL (75-110); POTASSIUM 4.3 mmol/L (3.6-5.0)
[2019-02-20] MEDS: AMPICILLIN SODIUM/SULBACTAM NA 1.5 GM in NORMAL SALINE 50 ML IV SCH ×2 (06:02→12:39)
[2019-02-20] MEDS: LEVETIRACETAM 500 MG TABLET PO SCH (10:07)
[2019-02-20] MEDS: BUSPIRONE HCL 10 MG TABLET PO SCH (10:08)
[2019-02-20] MEDS: VENLAFAXINE HCL 37.5 MG CAP.SR.24H PO SCH (10:11)
[2019-02-20] MEDS: ENOXAPARIN SODIUM INJ 40 MG/0.4 ML DISP.SYRIN SUBCUT SCH (10:12)
--- NOTE | 2019-02-20 13:32 | PSYCHOLOGICAL NOTE ---
Psych Note - Psych Note Date seen by psych provider: 02/20/19 Time seen by psych provider: 08:02 - Chart 0802. Evaluation from [id number]. Coodirnated with mother about plan of care at 1326. Psych Note: Presenting Problem: IVC, OD Methamphetamine to extent admitted to ICU/had 2 seizures, sent text to mother that she tried to OD, OD December 2018 which resulted in inpatient medical stay/she had 4 seizures after this previous OD, UDS positive for Amphetamine and Cannabis. Yesterday patient was started on medications: Effexor 37.5MG QD and Buspar 5MG BID. Placement efforts have been taking place since 02/17/19 without any acceptance (likely due to dual diagnosis SA and MH, seen as primary SA, SA detox is voluntary and detox facilities would see her as detoxed already given number of days in the hospital). Patient was sleeping but easily aroused and quickly became alert and oriented. She denied negative side effects from medications and no observations of such. She denied current SI and commented "I just want to go home and see my kids (8 year old son, 5 year old daughter)." She stated the reason she was in the hospital was "because I tired to OD, I had a lot going on, I had a lot on my plate, it was not a saunders choice, I should have talked to my mother." She was confronted and challenged as to whether she thought about her children and if she had been successful then her children would be motherless. She became teary eyed. She denied being linked up with an outpatient MH provider. She stated she previously saw Dr. Correia at [facility]3]. She identified current insurance is Medicaid Family Planning. Patient alert and oriented x5 with linear thinking, also had future/forward/goal oriented thinking when she mentioned she just wanted to go home and see her kids, mood was euthymic with congruent affect, she denied current SI/HI, she had fair eye contact, she was able to engage/process and carry on dialogue conversation which was within normal limits for rate/tone/prosody. Spoke to patient's mother Yasmine Acosta/HOWIE and made aware of plan of care. Diagnosis: Polysubstance Use and Hx Amphetamine/Methamphetamine Use Disorder, Severe Cannabis Use Disorder, Severe Cocaine use Disorder, Mild (12/29/18 UDS positive for) Depressive Disorder Impression/Plan: Patient is cleared from acute psychiatric services. Recommendation to rescind IVC. Patient alert and oriented x5 with linear thinking, also had future/forward/goal oriented thinking when she mentioned she just wanted to go home and see her kids, mood was euthymic with congruent affect, she denied current SI/HI, she had fair eye contact, she was able to engage/process and carry on dialogue conversation which was within normal limits for rate/tone/prosody. Instructed patient she should take medications as prescribed and avoid use of substances which could interfere with effectiveness. Provided patient with the outpatient SA resource sheet which highlighted IFS MCM, listed detox facilities and documented walk in ([id number]) follow up at [facility]. Mother included in plan of care. Consulted with Dr. Evans regarding the management and care of patient. Attending Hospitalist aware of recommendations.
--- NOTE | 2019-02-21 18:04 | PDOC DISCHARGE SUMMARY ---
Impression - Admit/DC Date/PCP Admission Date/Primary Care Provider: 02/16/19 12:43 Discharge Date: 02/20/19 - Additional Information Resuscitation Status: Full Code Discharge Diet: As Tolerated Discharge Activity: Activity As Tolerated, Balance Activity w/Rest Referrals: [facility] [Outside] - 02/27/19 3:00 pm Prescriptions: Buspirone HCl [Buspar 10 mg Tablet] 5 mg PO Q12 #30 tablet Venlafaxine HCl ER [Effexor Xr 37.5 mg Cap.sr] 37.5 mg PO DAILY #30 cap.sr.24h Levetiracetam [Keppra 500 mg Tablet] 500 mg PO Q12 #60 tablet Home Medications: Buspirone HCl [Buspar 10 mg Tablet] 5 mg PO Q12 #30 tablet 02/20/19 Levetiracetam [Keppra 500 mg Tablet] 500 mg PO Q12 #60 tablet 02/20/19 Venlafaxine HCl ER [Effexor Xr 37.5 mg Cap.sr] 37.5 mg PO DAILY #30 cap.sr.24h 02/20/19 History of Present Illiness History of Present Illness: Admitting Provider's H&P: Pt is a 28 yo woman with PTSD, polysubstance abuse, meth abuse, OCD, bipolar, depression, anxiety who presented to the ED via EMS after having seizures due to taking an overdose of meth. Per report, she told her family that she was going to kill herself by taking an overdose of meth. She did this same thing 2 months ago. She has had a total of three witnessed seizures. In the ED, she got Ativan and IV keppra. Hospital Course Hospital Course: Patient was initially admitted to the ICU due to acute encephalopathy after experiencing seizures deemed likely to be related to methamphetamine. She was initially IVC and was evaluated by psych. Patient promptly returned to her baseline and was fully awake and coherent the next day. She was downgraded to the floor where she continued to do well clinically. She was reevaluated by psych. She did not have recurrence of suicidal ideations. She says she got overwhelmed because her mom is recently diagnosed with cancer and at the same time her fianc left her. She further verbalized that she was regretful about what she did and says that she realizes she needs to persevere as she needed to take care of her kids and help her mom cope up with her cancer. She was cleared for discharge by psych. Physical Exam Vital Signs: Temp Pulse Resp BP Pulse Ox 97.9 F 69 17 110/60 99 02/20/19 15:16 02/20/19 15:16 02/20/19 15:16 02/20/19 15:16 02/20/19 15:16 Intake & Output 02/20/19 02/21/19 02/22/19 06:59 06:59 06:59 Intake Total 1151 50 Balance 1151 50 Weight 227 lb 1.218 oz General appearance: PRESENT: no acute distress, well-developed, well-nourished Head exam: PRESENT: atraumatic, normocephalic Eye exam: PRESENT: conjunctiva pink, EOMI, PERRLA. ABSENT: scleral icterus Ear exam: PRESENT: normal external ear exam Mouth exam: PRESENT: moist, tongue midline Neck exam: ABSENT: carotid bruit, JVD, lymphadenopathy, thyromegaly Respiratory exam: PRESENT: clear to auscultation cami. ABSENT: rales, rhonchi, wheezes Cardiovascular exam: PRESENT: RRR. ABSENT: diastolic murmur, rubs, systolic murmur Pulses: PRESENT: normal dorsalis pedis pul GI/Abdominal exam: PRESENT: normal bowel sounds, soft. ABSENT: distended, guarding, mass, organolmegaly, rebound, tenderness Rectal exam: PRESENT: deferred Extremities exam: PRESENT: full ROM. ABSENT: calf tenderness, clubbing, pedal e mounika Neurological exam: PRESENT: alert, awake, oriented to person, oriented to place, oriented to time, oriented to situation, CN II-XII grossly intact. ABSENT: motor sensory deficit Psychiatric exam: PRESENT: appropriate affect, normal mood. ABSENT: homicidal ideation, suicidal ideation Results Laboratory Results: WBC 6.5 10^3/uL (4.0-10.5) 02/20/19 04:39 RBC 4.45 10^6/uL (3.72-5.28) 02/20/19 04:39 Hgb 12.1 g/dL (12.0-15.5) 02/20/19 04:39 Hct 36.4 % (36.0-47.0) 02/20/19 04:39 MCV 82 fl (80-97) 02/20/19 04:39 MCH 27.3 pg (27.0-33.4) 02/20/19 04:39 MCHC 33.4 g/dL (32.0-36.0) 02/20/19 04:39 RDW 14.0 % (11.5-14.0) 02/20/19 04:39 Plt Count 292 10^3/uL (150-450) 02/20/19 04:39 Lymph % (Auto) 41.5 % (13-45) 02/20/19 04:39 [place] % (Auto) 9.2 % (3-13) 02/20/19 04:39 Eos % (Auto) 3.3 % (0-6) 02/20/19 04:39 Baso % (Auto) 1.0 % (0-2) 02/20/19 04:39 Absolute Neuts (auto) 2.9 10^3/uL (1.7-8.2) 02/20/19 04:39 Absolute Lymphs (auto) 2.7 10^3/uL (0.5-4.7) 02/20/19 04:39 Absolute Monos (auto) 0.6 10^3/uL (0.1-1.4) 02/20/19 04:39 Absolute Eos (auto) 0.2 10^3/uL (0.0-0.6) 02/20/19 04:39 Absolute Basos (auto) 0.1 10^3/uL (0.0-0.2) 02/20/19 04:39 Seg Neutrophils % 45.0 % (42-78) 02/20/19 04:39 Sodium 138.6 mmol/L (137-145) 02/20/19 04:39 Potassium 4.3 mmol/L (3.6-5.0) 02/20/19 04:39 Chloride 96 mmol/L (98-107) L 02/20/19 04:39 Carbon Dioxide 33 mmol/L (22-30) H 02/20/19 04:39 Anion Gap 10 (5-19) 02/20/19 04:39 BUN 12 mg/dL (7-20) 02/20/19 04:39 Creatinine 0.70 mg/dL (0.52-1.25) 02/20/19 04:39 Est GFR ( Amer) > 60 (>60) 02/20/19 04:39 Est GFR (MDRD) Non-Af > 60 (>60) 02/20/19 04:39 Glucose 95 mg/dL (75-110) 02/20/19 04:39 POC Glucose 113 mg/dL (70-110) H 02/17/19 05:11 Calcium 9.9 mg/dL (8.4-10.2) 02/20/19 04:39 Magnesium 2.3 mg/dL (1.6-2.3) 02/16/19 09:33 Total Bilirubin 0.3 mg/dL (0.2-1.3) 02/16/19 09:33 Direct Bilirubin 0.2 mg/dL (0.0-0.4) 02/16/19 09:33 Neonat Total Bilirubin Not Reportable 02/16/19 09:33 Neonat Direct Bilirubin Not Reportable 02/16/19 09:33 Neonat Indirect Bili Not Reportable 02/16/19 09:33 AST 36 U/L (14-36) 02/16/19 09:33 ALT 35 U/L (<35) 02/16/19 09:33 Alkaline Phosphatase 74 U/L (38-126) 02/16/19 09:33 Total Protein 8.2 g/dL (6.3-8.2) 02/16/19 09:33 Albumin 4.4 g/dL (3.5-5.0) 02/16/19 09:33 Serum HCG, Qual NEGATIVE (NEGATIVE) 02/16/19 09:33 Urine Color YELLOW 02/16/19 09:52 Urine Appearance CLEAR 02/16/19 09:52 Urine pH 5.0 (5.0-9.0) 02/16/19 09:52 Ur Specific [place] 1.019 02/16/19 09:52 Urine Protein 30 mg/dL (NEGATIVE) H 02/16/19 09:52 Urine Glucose (UA) NEGATIVE mg/dL (NEGATIVE) 02/16/19 09:52 Urine Ketones NEGATIVE mg/dL (NEGATIVE) 02/16/19 09:52 Urine Blood NEGATIVE (NEGATIVE) 02/16/19 09:52 Urine Nitrite NEGATIVE (NEGATIVE) 02/16/19 09:52 Urine Bilirubin NEGATIVE (NEGATIVE) 02/16/19 09:52 Urine Urobilinogen NEGATIVE mg/dL (<2.0) 02/16/19 09:52 Ur Leukocyte Esterase NEGATIVE (NEGATIVE) 02/16/19 09:52 Urine WBC (Auto) 3 /HPF 02/16/19 09:52 Urine RBC (Auto) 1 /HPF 02/16/19 09:52 U Hyaline Cast (Auto) 7 /LPF 02/16/19 09:52 Squamous Epi Cells Auto <1 /HPF 02/16/19 09:52 Urine Mucus (Auto) FEW /LPF 02/16/19 09:52 Urine Ascorbic Acid NEGATIVE (NEGATIVE) 02/16/19 09:52 Urine Opiates Screen NEGATIVE 02/16/19 09:52 Urine Methadone Screen NEGATIVE 02/16/19 09:52 Ur Barbiturates Screen NEGATIVE 02/16/19 09:52 Ur Phencyclidine Scrn NEGATIVE 02/16/19 09:52 Ur Amphetamines Screen UNCONFIRMED POSITIVE 02/16/19 09:52 U Benzodiazepines Scrn NEGATIVE 02/16/19 09:52 Urine Cocaine Screen NEGATIVE 02/16/19 09:52 U Marijuana (THC) Screen UNCONFIRMED POSITIVE 02/16/19 09:52 Serum Alcohol < 10 mg/dL (NONE DETECTED) 02/16/19 09:33 Influenza A (Rapid) NEGATIVE (NEGATIVE) 02/18/19 09:40 Influenza B (Rapid) NEGATIVE (NEGATIVE) 02/18/19 09:40 Impressions: Chest X-Ray 02/16/19 10:22 IMPRESSION: Borderline cardiomegaly without pulmonary edema. Head CT 02/16/19 10:23 IMPRESSION: NORMAL BRAIN CT WITHOUT CONTRAST. EVIDENCE OF ACUTE STROKE: NO. Facial Bones CT 02/16/19 10:46 IMPRESSION: NO ACUTE FINDINGS. Cervical Spine CT 02/16/19 10:47 IMPRESSION: NO ACUTE OR SIGNIFICANT FINDINGS IN THE CERVICAL SPINE. Chest X-Ray 02/17/19 07:37 IMPRESSION: NO ACUTE RADIOGRAPHIC FINDING IN THE CHEST. Stroke Is this a Stroke Patient?: No Acute Heart Failure - Is this a Heart Failure Patient?: No LVEF < 40%?: No- if no continue to question #3
== END 2019-02-20 15:17 | disposition home or self-care (01) | DRG 917 ==
LOC: ER 09:23 → EH 12:43 → ICU 15:46 → 5 02-18 17:27
PROVIDERS: ADMIT Internal Medicine; ATTEND Internal Medicine
DX: T43.622A Poisoning by amphetamines, intentional self-harm, initial encounter (principal); J69.0 Pneumonitis due to inhalation of food and vomit; R56.9 Unspecified convulsions; Y92.9 Unspecified place or not applicable; F43.10 Post-traumatic stress disorder, unspecified; F42.9 Obsessive-compulsive disorder, unspecified; F31.9 Bipolar disorder, unspecified; F41.9 Anxiety disorder, unspecified; F19.10 Other psychoactive substance abuse, uncomplicated; F15.10 Other stimulant abuse, uncomplicated; Z78.1 Physical restraint status; Z23 Encounter for immunization; Z82.61 Family history of arthritis; Z82.3 Family history of stroke; Z83.3 Family history of diabetes mellitus; Z82.49 Family history of ischemic heart disease and other diseases of the circulatory system
CPT/HCPCS: 36415; 70450; 70486; 71045; 72125; 80048; 80053; 80307; 81001; 82962; 83735; 84703; 85025; 85027; 87040; 87804; 90686; 93005; 93010; 96374; 96375; 99291; J0295; J1650; J1953; J2060; J2405; J3490; J7120

== ENCOUNTER 2020-03-20 12:58 | Emergency (ER) | payer SELFPAY ==
--- NOTE | 2020-03-20 13:57 | ER Document Report ---
ED Extremity Problem, Upper - General Chief Complaint: Fall Stated Complaint: RIGHT WRIST PAIN Time Seen by Provider: 03/20/20 13:51 Primary Care Provider: [facility] [Provider Group] - Follow up as needed Mode of Arrival: Ambulatory Information source: Patient Notes: 29-year-old female presented to ED for pain to the right hand wrist and arm. S he states she fell 5 days ago tripped over a backpack and fell onto her extended arm. She states it bent her wrist backwards. She states she has not followed up with any provider since then. She states she has been in excruciating pain 5/5 since the injury. There is bruising swelling to the right hand and wrist. Constitutional: Negative for fever. HENT: Negative for sore throat. Eyes: Negative for visual changes. Cardiovascular: Negative for chest pain. Respiratory: Negative for shortness of breath. Gastrointestinal: Negative for abdominal pain, vomiting or diarrhea. Genitourinary: Negative for dysuria. Musculoskeletal: Pain swelling bruising to the right wrist and hand. She states the pain goes all the way up to her elbow. She has decreased movement to the wrist and decreased movement to the fingers. Skin: Chemosis to the right wrist and hand Neurological: Negative for headaches, weakness or numbness. 10 point ROS negative except as marked above and in HPI. PHYSICAL EXAMINATION: GENERAL: Well-appearing, well-nourished and in no acute distress. HEAD: Atraumatic, normocephalic. EYES: Pupils equal round extraocular movements intact, conjunctiva are normal. ENT: Nares patent NECK: Normal range of motion LUNGS: No respiratory distress Musculoskeletal: Decreased range of motion to the right hand and wrist. Pain with any movement. Tenderness to the forearm wrist and hand NEUROLOGICAL: Normal speech, normal gait. PSYCH: Normal mood, normal affect. SKIN: Ecchymosis to the right wrist and hand TRAVEL OUTSIDE OF THE [place] IN LAST 30 DAYS: No - HPI Patient complains to provider of: Right, Forearm, Hand, Wrist Onset: Last week Recent injury: Yes Where: Home, Indoors Quality of pain: Sharp, Throbbing Severity of pain: Severe Pain Level: 5 Context: Fall Exacerbated by: Movement, Exertion Relieved by: Nothing Similar symptoms previously: Yes Recently seen / treated by doctor: No - Related Data Allergies/Adverse Reactions: No Known Allergies Allergy (Verified 03/20/20 13:47) Past Medical History - General Information source: Patient - Social History Smoking Status: Current Some Day Smoker Cigarette use (# per day): Yes - Cigarette a week Smoking Education Provided: Yes Frequency of alcohol use: None Drug Abuse: None Lives with: Family Family History: Arthritis, CVA, DM, Hypertension, Malignancy, Thyroid Disfu nction, Other - Grandmother with PE, diabetes, hypertension. Mother with gallbladder disease, diabetes, hypertension, asthma, obstructive sleep apnea, cardiac hypertrophy. PGM breast cancer. Mom with "possible ovarian cancer" Patient has suicidal ideation: No Patient has homicidal ideation: No - Past Medical History Cardiac Medical History: Reports: None Pulmonary Medical History: Reports: Other - pulmonary nodules EENT Medical History: Reports: None Neurological Medical History: Reports: Hx Migraine, Hx Seizures - Patient had a seizure in December of this year and was admitted to this hospi Endocrine Medical History: Reports: None Renal/ Medical History: Reports: None Malignancy Medical History: Reports: None GI Medical History: Reports: None Musculoskeletal Medical History: Reports Hx Musculoskeletal Trauma Skin Medical History: Reports None Psychiatric Medical History: Reports: Hx Anxiety, Hx Bipolar Disorder, Hx Depression, Hx Obsessive Compulsive Disorder, Hx Post Traumatic Stress Disorder, Hx Schizophrenia - no meds Traumatic Medical History: Reports: None Infectious Medical History: Reports: None Past Surgical History: Reports: Hx Section - x3, Hx Cholecystectomy, Hx Oral Surgery - wisdom teeth, Hx Tubal Ligation. Denies: Hx Hysterectomy - Immunizations Immunizations up to date: Yes Hx Diphtheria, Pertussis, Tetanus Vaccination: Yes - 01/02/17 Hx Pneumococcal Vaccination: 05/16/10 Physical Exam - Vital signs Vitals: Temp Pulse Resp BP Pulse Ox 98.2 F 102 H 16 119/84 98 03/20/20 13:11 03/20/20 13:11 03/20/20 13:11 03/20/20 13:11 03/20/20 13:11 Course - Re-evaluation Re-evalutation: 03/20/20 15:18 Discussed x-ray reports with patient. There is no acute fractures, dislocations or other injuries noted to the right wrist and no nodule noted on the long. Patient has been given a written report of the x-rays. She has been treated with a cock-up splint to the right wrist and she will be instructed to follow-up with orthopedics for this discomfort. Patient has been given instructions on elevation ice and ibuprofen. Patient verbalized understanding and agreement with treatment plan. 03/20/20 15:20 Patient has full range of motion to the wrist and hand with some discomfort. - Vital Signs Vital signs: Temp Pulse Resp BP Pulse Ox 98.2 F 78 18 125/82 99 03/20/20 13:11 03/20/20 15:23 03/20/20 15:23 03/20/20 15:23 03/20/20 15:23 - Diagnostic Test Radiology reviewed: Image reviewed, Reports reviewed Procedures - Immobilization Right Wrist Time completed: 15:20 Pre-Proc Neuro Vasc Exam: Normal Immobilizer type: Cock-up Performed by: CARLOS Post-Proc Neuro Vasc Exam: Normal Alignment checked and good: Yes Discharge - Discharge Clinical Impression: Right wrist pain Condition: Stable Disposition: HOME, SELF-CARE Additional Instructions: You were seen today for right wrist pain since she fell a week ago. Your x-rays are negative for any acute injuries. I have given you a written report of the x-rays. Cock-up splint has been applied to your right wrist for the discomfort. If your wrist is not hurting you do not have to wear the splint it is for your comfort. Please follow-up with the personal injury law specialist. SPLINT PRECAUTIONS: A splint has been placed. This will protect the area while healing begins. Your problem does NOT normally require a cast. It MUST, however, be held still! Keep the splint on ALL THE TIME until instructed to remove it by the doctor. As you begin to use the area, be careful. You shouldn't do anything which causes discomfort -- you may disturb the injury even with the splint in place. After the initial period of rest and elevation, if splint does not prevent pain when you move, come back. You may require placement of a different splint, or a cast. If there is unexpected severe pain, or numbness, discoloration, or swelling beyond the splint, you should return at once. If you feel that the splint has broken or become loose, come back. ICE & ELEVATION: Apply ice packs frequently against the painful area. Many different schedules are recommended, such as "20 minutes on, 20 minutes off" or "one hour ice, two hours rest." If you need to work, you may need to go longer between ice treatments. You should plan to have the area ice packed AT LEAST one-fourth of the time. The ice should be applied over the wrap, tape, or splint, or over a layer of cloth -- not directly against the skin. Some ice bags have a built-in cloth and can be put directly on the skin. Your injured part should be elevated as much as possible over the next 48 hours. Try to keep the injury above the level of the heart. Avoid use of the injured area. Elevation and rest will decrease the swelling. USE OF [id number] IBUPROFEN: Ibuprofen (Advil, Nuprin, Medipren, Motrin IB) is a medication for fever and pain control. In addition, it has anti- inflammatory effects which may be beneficial, especially in the treatment of injuries. It's best to take ibuprofen with food. Persons with ulcer disease or allergy to aspirin should notify their physician of this before taking ibuprofen. Ibuprofen can be given every four to six hours, for a total of four doses daily. Age Pain or fever dose Antiinflammatory dose 6-8 yr 200 mg (1 tab) 200 mg (1 tab) 9-11 yr 200 mg (1 tab) 200-400 mg (1-2 tab) 11-14 yr 200-400 mg (1-2 tab) 400 mg (2 tab) 15-adult 400 mg (2 tab) 600 mg (3 tab) FOLLOW-UP CARE: If you have been referred to a physician for follow-up care, call the physicians office for an appointment as you were instructed or within the next two days. If you experience worsening or a significant change in your symptoms, notify the physician immediately or return to the Emergency Department at any time for re-evaluation. Referrals: [facility] ([facility] [Provider Group] - Follow up as needed
[2020-03-20] MEDS ORDERED: IBUPROFEN 800 MG TABLET PO ONE (14:03)
--- NOTE | 2020-03-20 14:46 | RADIOLOGY REPORT (SQ) ---
EXAM DESCRIPTION: HAND RIGHT 3 VIEWS IMAGES COMPLETED DATE/TIME: 03/20/2020 2:37 pm REASON FOR STUDY: Pain and injury 5 days ago COMPARISON: 12/04/2018 EXAM PARAMETERS: NUMBER OF VIEWS: Three views. TECHNIQUE: AP, lateral and oblique radiographic images acquired of the right hand. LIMITATIONS: None. FINDINGS: MINERALIZATION: Normal. BONES: No acute fracture or dislocation. No worrisome bone lesions. JOINTS: No effusions. SOFT TISSUES: No soft tissue swelling. No foreign body. OTHER: No other significant finding. IMPRESSION: NEGATIVE STUDY OF THE RIGHT HAND. NO RADIOGRAPHIC EVIDENCE OF ACUTE INJURY. TECHNICAL DOCUMENTATION: JOB ID: [id number] 2010 [employer]- All Rights Reserved Reading location - IP/workstation name: [email or web address]
--- NOTE | 2020-03-20 14:46 | RADIOLOGY REPORT (SQ) ---
EXAM DESCRIPTION: WRIST RIGHT 3 VIEWS IMAGES COMPLETED DATE/TIME: 03/20/2020 2:37 pm REASON FOR STUDY: Pain and injury 5 days ago COMPARISON: None. NUMBER OF VIEWS: Three views. TECHNIQUE: AP, lateral, and oblique radiographic images acquired of the right wrist. LIMITATIONS: None. FINDINGS: MINERALIZATION: Normal. BONES: No acute fracture or dislocation. No worrisome bone lesions. Normal alignment. SOFT TISSUES: No soft tissue swelling. No foreign body. OTHER: No other significant finding. IMPRESSION: NEGATIVE STUDY OF THE RIGHT WRIST. NO RADIOGRAPHIC EVIDENCE OF ACUTE INJURY. TECHNICAL DOCUMENTATION: JOB ID: [id number] 2010 [employer]- All Rights Reserved Reading location - IP/workstation name: [email or web address]
--- NOTE | 2020-03-20 14:49 | RADIOLOGY REPORT (SQ) ---
EXAM DESCRIPTION: CHEST 2 VIEWS IMAGES COMPLETED DATE/TIME: 03/20/2020 2:37 pm REASON FOR STUDY: Pulmonary nodule 2018 not followed up COMPARISON: 02/17/2019 EXAM PARAMETERS: NUMBER OF VIEWS: two views TECHNIQUE: Digital Frontal and Lateral radiographic views of the chest acquired. RADIATION DOSE: NA LIMITATIONS: none FINDINGS: LUNGS AND PLEURA: No opacities, masses or pneumothorax. No pleural effusion. MEDIASTINUM AND HILAR STRUCTURES: No masses or contour abnormalities. HEART AND VASCULAR STRUCTURES: Heart normal size. No evidence for failure. BONES: No acute findings. HARDWARE: None in the chest. OTHER: No other significant finding. IMPRESSION: No acute findings in the chest. No pulmonary nodule is appreciated. TECHNICAL DOCUMENTATION: JOB ID: [id number] 2010 [employer]- All Rights Reserved Reading location - IP/workstation name: [email or web address]
[2020-03-20 15:23] VITALS: BP 125/82
== END 2020-03-20 15:23 | disposition home or self-care (01) ==
LOC: ER 12:58
DX: S60.211A Contusion of right wrist, initial encounter (principal); S60.221A Contusion of right hand, initial encounter; W01.0XXA Fall on same level from slipping, tripping and stumbling without subsequent striking against object, initial encounter; Y92.009 Unspecified place in unspecified non-institutional (private) residence as the place of occurrence of the external cause; F17.210 Nicotine dependence, cigarettes, uncomplicated; Z87.09 Personal history of other diseases of the respiratory system
CPT/HCPCS: 71046; 99284